=== PATIENT | male | born 1950 | race Caucasian/White ===

== ENCOUNTER 2017-03-11 19:57 | Outpatient (CLI) | payer BC ==
[~2017-03-11 19:57] MED LIST: ASP81TEC PO; BACL10TA PO; BENZ200C3 PO; BUDE6HFA; BUDE6HFA IH; CEPH500C; CLAR-19; CLCX200C PO; CLOP75TA PO; CODE118S2; DOCU-161 PO; ISM30TCR PO; LVT.05T PO; LVT.1T PO; MAGN1TAB PO; METO-272 PO; METO50TA7; MNTL10T; MONT10TA21; MORP30TA28 PO; NITR0.3T6 SL; NTR.4SL SL; OMEP-10; OMEP20CA6; PNT40TEC PO; POLY1DRO2 OP; PRAV80TA PO; PRCD5U; PRD10T; PRD10T PO; PREVASTATIN PO; RNT150T PO; ROSU20TA14 PO; SULF1TAB38 PO; TIOT18CA IH; UBID30CA13 PO; VITA400T9 PO; ZLP10T PO; calcium PO
== END 2017-03-12 05:10 | disposition home or self-care (01) ==
LOC: SLEEP 19:57
PROVIDERS: ATTEND Nurse Practitioner Family
DX: G47.33 Obstructive sleep apnea (adult) (pediatric) (principal); G47.10 Hypersomnia, unspecified
CPT/HCPCS: 95811

== ENCOUNTER → 2017-04-20 | Outpatient (CLI) | payer BC ==
[2017-04-20 15:48] LABS: BASOPHILS % (AUTO) 0 % (0-10); EOSINOPHILS # (AUTO) 0.3 10^3/uL (0.0-0.3); EOSINOPHILS % (AUTO) 4 % (0-10); LYMPHOCYTES # (AUTO) 2.8 X 10^3 (1.0-4.0); LYMPHOCYTES % (AUTO) 36 % (12-44); MEAN CORPUSCULAR HEMOGLOBIN 31 PG (25-34); MEAN CORPUSCULAR HGB CONC 35 G/DL (32-36); MEAN CORPUSCULAR VOLUME 89 FL (80-99); MEAN PLATELET VOLUME 9.6 FL (7.4-10.4); MONOCYTES # (AUTO) 0.8 X 10^3 (0.0-1.0); MONOCYTES % (AUTO) 10 % (0-12); NEUTROPHILS # (AUTO) 3.8 X 10^3 (1.8-7.8); NEUTROPHILS % (AUTO) 50 % (42-75); PLATELET COUNT 203 10^3/uL (130-400); RED BLOOD COUNT 4.64 10^6/uL (4.35-5.85); RED CELL DISTRIBUTION WIDTH 12.7 % (10.0-14.5); WHITE BLOOD COUNT 7.7 10^3/uL (4.3-11.0)
[2017-04-20 16:07] LABS: ALANINE AMINOTRANSFERASE 34 U/L (0-55); ANION GAP 5 MMOL/L (5-14); ASPARTATE AMINO TRANSFERASE 18 U/L (5-34); BILIRUBIN,TOTAL 0.5 MG/DL (0.1-1.0); BLOOD UREA NITROGEN 20 MG/DL (7-18); BUN/CREATININE RATIO 23 (0-20); CALCIUM 8.8 MG/DL (8.5-10.1); CARBON DIOXIDE 25 MMOL/L (21-32); CHLORIDE 111 MMOL/L (98-107); CHOLESTEROL 115 MG/DL (< 200); CREATININE SERUM 0.88 MG/DL (0.60-1.30); DIRECT LDL 50 MG/DL (1-129); GFR ESTIMATED > 60; GLUCOSE 92 MG/DL (70-105); POTASSIUM 3.8 MMOL/L (3.6-5.0); SODIUM 141 MMOL/L (135-145); TOTAL PROTEIN 5.7 GM/DL (6.4-8.2); TRIGLYCERIDES 73 MG/DL (<150); VLDL CHOLESTEROL 15 MG/DL (5-40)
== END ==
LOC: LAB 15:31
PROVIDERS: ATTEND Family Medicine
DX: G47.419 Narcolepsy without cataplexy (principal)
CPT/HCPCS: 36415; 80053; 80061; 85025

== ENCOUNTER 2017-07-28 05:18 | Inpatient (IN) | payer BC, MEDICARE ==
[~2017-07-28] VITALS: Ht 175.3 cm; Wt 92.2 kg
--- OUTSIDE RECORDS SUMMARY | 2017-07-28 05:23 | XMS REPORT | Clinical Summary ---
Author Author [facility] Organization [facility] Address Unknown Phone Unavailable Care Team Providers Care Engrosser Name Role Phone PCP Unavailable Source Comments Some departments are not documenting in the electronic medical record. If you do not see the information that you expected, contact Release of Information in the Health Information Management department at [phone] for further assistance in locating additional records.[facility] Allergies No Known Allergies Current Medications Prescription Sig. Disp. Refills Start End Date Status Date pravastatin (PRAVACHOL) Take 80 mg by mouth Active 80 mg PO tablet daily. Aspirin 81 mg PO Tab Take by mouth daily. Active nitroglycerin (NITROSTAT) Place 0.4 mg under tongue Active 0.4 mg SL tablet every 5 minutes as needed. morphine SR (AVINZA) 30 Take 30 mg by mouth Active mg PO capsule daily. Levothyroxine 25 mcg PO Take by mouth daily. Active Cap celecoxib (CELEBREX) 200 Take 200 mg by mouth Active mg PO capsule daily. docusate (COLACE) 100 mg Take 200 mg by mouth at Active PO capsule bedtime daily. clopidogrel (PLAVIX) 75 Take 75 mg by mouth Active mg daily. Carboxymethylcellulose-Gl Place into or around Active ycern (OPTIVE) 0.5-0.9 % eye(s) as Needed. Drop traMADol (ULTRAM) 50 mg Take 50 mg by mouth three Active tablet times daily. 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 Esophageal reflux 05/12/2011 Family History Medical History Relation Name Comments Asthma Brother Heart Attack Brother High Cholesterol Brother Stroke Brother Cancer Mother uterine Stroke Mother Relation Name Status Comments Brother Alive Brother Alive Brother Alive Daughter Alive Father Mother Alive Son Alive Social History Tobacco Use Types Packs/Day Years Used Date Never Smoker Smokeless Tobacco: Never Used Alcohol Use Drinks/Week oz/Week Comments No Sex Assigned at Date Recorded Not on file Last Filed Vital Signs Vital Sign Reading Time Taken Blood Pressure 114/64 10/01/2015 12:00 PM FINISHER DENTURE Pulse 49 10/01/2015 12:00 PM FINISHER DENTURE Temperature 36.4 C (97.6 F) 10/01/2015 10:23 AM FINISHER DENTURE Respiratory Rate 16 06/15/2012 8:48 AM CDT Oxygen Saturation 100% 10/01/2015 12:00 PM FINISHER DENTURE Inhaled Oxygen - - Concentration Weight 89.8 kg (198 lb) 10/01/2015 10:23 AM FINISHER DENTURE Height 176.5 cm (5' 9.5") 10/01/2015 10:23 AM FINISHER DENTURE Body Mass Index 28.82 10/01/2015 10:23 AM FINISHER DENTURE Plan of Treatment Health Maintenance Due Date Last Done Comments HEPATITIS C SCREENING 1950 PHYSICAL (COMPREHENSIVE) 1957 EXAM PERTUSSIS VACCINE 1961 TETANUS VACCINE 1967 COLORECTAL CANCER 2000 SCREENING SHINGLES VACCINE 2010 PREVNAR/PNEUMOVAX (#1) 2015 INFLUENZA VACCINE 08/08/2017 Results Not on filefrom Last 3 Months
[2017-07-28 06:04] LABS: BASOPHILS % (AUTO) 0 % (0-10); EOSINOPHILS # (AUTO) 0.3 10^3/uL (0.0-0.3); EOSINOPHILS % (AUTO) 3 % (0-10); LYMPHOCYTES # (AUTO) 2.1 X 10^3 (1.0-4.0); LYMPHOCYTES % (AUTO) 21 % (12-44); MEAN CORPUSCULAR HEMOGLOBIN 31 PG (25-34); MEAN CORPUSCULAR HGB CONC 35 G/DL (32-36); MEAN CORPUSCULAR VOLUME 88 FL (80-99); MEAN PLATELET VOLUME 10.4 FL (7.4-10.4); MONOCYTES # (AUTO) 0.7 X 10^3 (0.0-1.0); MONOCYTES % (AUTO) 7 % (0-12); NEUTROPHILS % (AUTO) 69 % (42-75); PLATELET COUNT 201 10^3/uL (130-400); RED BLOOD COUNT 4.93 10^6/uL (4.35-5.85); RED CELL DISTRIBUTION WIDTH 12.6 % (10.0-14.5); WHITE BLOOD COUNT 10.2 10^3/uL (4.3-11.0)
--- NOTE | 2017-07-28 06:04 | ED General ---
General Chief Complaint: General Problems/Pain Stated Complaint: HIGH BLOOD PRESSURE,NAUSEA,ABD PAIN Nursing Triage Note: PT TO ED 7 W/ C/O OLIVAS/ELEVATED B/P ONSET X3 DAYS, W/ ONSET N/V/D ET ABD PAIN ONSET TODAY. PT APPEARS VERY ANXIOUS AT THIS TIME. Nursing Sepsis Screen: No Definite Risk Source of Information: Patient (DIFFICULT HISTORIAN--TALKS NON-STOP AT LENGTH ABOUT --DIFFICULT TO KEEP ON SUBJECT) History of Present Illness Time Seen by Provider: 05:27 Initial Comments PT ARRIVES VIA POV FROM HOME MULTIPLE COMPLAINTS C/O ELEVATED BP AND HEADACHE SINCE WEDNESDAY OR BEFORE C/O ABDOMINAL PAIN AND PAIN RADIATING INTO CHEST C/O NAUSEA AND DIARRHEA THESE SYMPTOMS SINCE 0 THIS AM HAS HAD HIATAL HERNIA REPAIR/FUNDOPLICATION, SO DOES NOT VOMIT HAD A NORMAL BM YESTERDAY AM SINCE LAST PM HAS HAD 5-6 VERY SMALL LIQUID STOOLS NO SHORTNESS OF BREATH NO PALPITATIONS HAS HAD INCREASED URINATION--STATES HE HAS BEEN DRINKING ALOT OF WATER THIS WEEK BECAUSE HE "HASN'T FELT GOOD" NO PAIN ON URINATION NO FEVER/SWEATS/CHILLS HAS TAKEN ALL AM MEDICATIONS PRIOR TO ARRIVAL PCP: DR. MORALES CRUISE GUIDE: DR. BENNETT Allergies and Home Medications Allergies Coded Allergies: Suri Known Allergies (Unverified Allergy, Unknown, 12/29/05) Home Medications Aspirin 81 Mg Tabec, 81 MG PO DAILY, (Reported) Celecoxib 200 Mg Capsule, 200 MG PO DAILY PRN for PAIN, (Reported) take one tab daily as needed for pain Clopidogrel Bisulfate 75 Mg Tablet, 75 MG PO DAILY, (Reported) Docusate Sodium 100 Mg Capsule, 200 MG PO HS, (Reported) TAKES 2 (100MG) CAPSULES AT BEDTIME Isosorbide Mononitrate 30 Mg Tab, 30 MG PO DAILY, #30 Ref 5 Prescribed by: REANNA PRECIADO on 03/02/14 1245 Levothyroxine Sodium 50 Mcg Tablet, 50 MCG PO DAILY, (Reported) Morphine Sulfate 30 Mg Tablet.sa, 30 MG PO DAILY, (Reported) Nitroglycerin 0.4 Mg Tab, SL UD PRN for CHEST PAIN, (Reported) 1 TABLET EVERY 5 MINUTES X 3 DOSES NEEDED FOR CHEST PAIN Pantoprazole Sodium 40 Mg Tab, 40 MG PO DAILY@0700, #30 Ref 5 Prescribed by: REANNA PRECIADO on 03/02/14 1245 Polyvinyl Alcohol/Povidone 50 Ea Droperette, 1 DROP OP QID PRN for DRY EYES, ( Reported) NEEDED FOR DRY EYES Rosuvastatin Calcium 20 Mg Tablet, 20 MG PO HS, (Reported) Zolpidem Tartrate 10 Mg Tab, 10 MG PO HS PRN for SLEEP, (Reported) NEEDED FOR SLEEP Constitutional: no symptoms reported EENTM: no symptoms reported Respiratory: no symptoms reported Cardiovascular: see HPI, chest pain, No edema, No palpitations, No syncope Gastrointestinal: see HPI, abdominal pain, nausea, vomiting Genitourinary: no symptoms reported Musculoskeletal: no symptoms reported Skin: no symptoms reported Psychiatric/Neurological: See HPI, Anxiety, Headache, Denies Numbness, Denies Paresthesia, Denies Seizure, Denies Tingling, Denies Weakness Hematologic/Lymphatic: No Symptoms Reported Immunological/Allergic: no symptoms reported Past Gqbiowk-Notnyz-Zfwgjq Hx Patient Social History Alcohol Use: Denies Use Recreational Drug Use: No Smoking Status: Never a Smoker Recent Foreign Travel: No Contact w/Someone Who Travel: No Recent Infectious Disease Expo: No Recent Hopitalizations: Yes (2 YEARS AGO ACID REFLUX, 4 YRS AGO 3 EXTRA THYROIDS REMOVED AND JEAN PUT IN ) Physical Abuse: No Sexual Abuse: No Mistreated: No Fear: No Surgeries History of Surgeries: Yes (CARDIAC CATH--STENTS X 3; 2 ANKLE FUSIONS, SEVERAL SURGERIES ON ANKLES AND ON BOTH KNEES ; C-SPINE SURGERY; "3 EXTRA THYROIDS REMOVED"; LAP KATYA FUNDOPLICATION) Surgeries: Abdominal, Cardiac, Coronary Stent, Orthopedic, Thyroidectomy Respiratory History of Respiratory Disorde: Yes ("C-FIBER COUGH" CHRONIC COUGH--TAKES MORPHINE SEVERAL TIMES A DAY SINCE 2008, uses a CPAP at [facility]) Respiratory Disorders: Sleep Apnea Cardiovascular History of Cardiac Disorders: Yes (CARDIAC CATHS--STENTS X 3) Cardiac Disorders: Coronary Artery Disease, High Cholesterol, Hypertension Neurological History of Neurological Disord: Yes (POSSIBLE TIA, PER PT) Reproductive System Hx Reproductive Disorders: No Genitourinary History of Genitourinary Disor: No Gastrointestinal History of Gastrointestinal Di: Yes (Hyperacidity, Lap Katya) Gastrointestinal Disorders: Gastroesophageal Reflux, Hiatal Hernia Musculoskeletal History of Musculoskeletal Dis: Yes (ANKLE SURGERIES, chronic ankle pain; C- SPINE SURGERY) Endocrine History of Endocrine Disorders: Yes ("3 EXTRA THYROIDS REMOVED") Endocrine Disorders: Hyperthyroidism HEENT History of HEENT Disorders: No Cancer History of Cancer: No Psychosocial History of Psychiatric Problem: Yes (TAKES 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 ) Suicide Risk Score: 0 Integumentary History of Skin or Integumenta: No Blood Transfusions History of Blood Disorders: No Adverse Reaction to a Blood Tr: No Physical Exam Vital Signs Vital Sign - Last 12Hours 07/28/17 05:27 Temp 97.9 Pulse 99 Resp 20 B/P (MAP) 185/94 Pulse Ox 99 O2 Delivery Room Air Capillary Refill : Less Than 3 Seconds General Appearance: Anxious, Other (VERY ANXIOUS, TALKS NON-STOP --DIFFICULT TO KEEP ON SUBJECT) HEENT: PERRL/EOMI Neck: Full Range of Motion, Normal Inspection, Non Tender, Supple Respiratory: Normal Breath Sounds, No Accessory Muscle Use, No Respiratory Distress Cardiovascular: Regular Rate, Rhythm, No Edema, No Murmur, Normal Peripheral Pulses Gastrointestinal: Abnormal Bowel Sounds (TYMPANIC, HYPERACTIVE), Distended ( AND VERY FIRM), Tenderness (DIFFUSE) Back: No CVA Tenderness Extremity: Normal Capillary Refill, Normal Inspection, Normal Range of Motion, Non Tender, No Calf Tenderness, No Pedal Edema Neurologic/Psychiatric: Alert, Oriented x3, No Motor/Sensory Deficits, correctional officer chief II- XII Norm as Tested, No Abnormal Cerebellar Tests, Other (VERY ANXIOUS) Skin: Normal Color, Warm/Dry Progress/Results/Core Measures Results/Orders Lab Results Laboratory Tests Test 07/28/17 05:35 Range/Units White Blood Count 10.2 4.3-11.0 10^3/uL Red Blood Count 4.93 4.35-5.85 10^6/uL Hemoglobin 15.1 13.3-17.7 G/DL Hematocrit 43 40-54 % Mean Corpuscular Volume 88 80-99 FL Mean Corpuscular Hemoglobin 31 25-34 PG Mean Corpuscular Hemoglobin Concent 35 32-36 G/DL Red Cell Distribution Width 12.6 10.0-14.5 % Platelet Count 201 130-400 10^3/uL Mean Platelet Volume 10.4 7.4-10.4 FL Neutrophils (%) (Auto) 69 42-75 % Lymphocytes (%) (Auto) 21 12-44 % Monocytes (%) (Auto) 7 0-12 % Eosinophils (%) (Auto) 3 0-10 % Basophils (%) (Auto) 0 0-10 % Neutrophils # (Auto) 7.0 1.8-7.8 X 10^3 Lymphocytes # (Auto) 2.1 1.0-4.0 X 10^3 Monocytes # (Auto) 0.7 0.0-1.0 X 10^3 Eosinophils # (Auto) 0.3 0.0-0.3 10^3/uL Basophils # (Auto) 0.0 0.0-0.1 10^3/uL Prothrombin Time 12.2 12.2-14.7 SEC INR Comment 0.9 0.8-1.4 Activated Partial Thromboplast Time 26 24-35 SEC Sodium Level 142 135-145 MMOL/L Potassium Level 3.8 3.6-5.0 MMOL/L Chloride Level 111 H 98-107 MMOL/L Carbon Dioxide Level 20 L 21-32 MMOL/L Anion Gap 11 5-14 MMOL/L Blood Urea Nitrogen 18 7-18 MG/DL Creatinine 0.87 0.60-1.30 MG/DL Estimat Glomerular Filtration Rate > 60 BUN/Creatinine Ratio 21 Glucose Level 145 H 70-105 MG/DL Calcium Level 9.1 8.5-10.1 MG/DL Magnesium Level 2.3 1.8-2.4 MG/DL Total Bilirubin 0.4 0.1-1.0 MG/DL Aspartate Amino Transf (AST/SGOT) 17 5-34 U/L Alanine Aminotransferase (ALT/SGPT) 26 0-55 U/L Alkaline Phosphatase 85 40-136 U/L Total Creatine Kinase 220 H 30-200 U/L Creatine Kinase MB 2.7 <6.6 NG/ML Troponin I < 0.30 <0.30 NG/ML B-Type Natriuretic Peptide 14.9 <100.0 PG/ML Total Protein 6.5 6.4-8.2 GM/DL Albumin 4.2 3.2-4.5 GM/DL Amylase Level 39 25-125 U/L Lipase 46 8-78 U/L My Orders Orders - MILTON CALVO DO Saline Lock/Iv-Start (07/28/17 05:38) Ekg Tracing (07/28/17 05:38) Monitor-Rhythm Ecg Trace Only (07/28/17 05:38) Amylase (07/28/17 05:38) BNP (07/28/17 05:38) Cbc With Automated Diff (07/28/17 05:38) Comprehensive Metabolic Panel (07/28/17 05:38) Creatine Kinase (07/28/17 05:38) Creatine Kinase Mb (07/28/17 05:38) Lipase (07/28/17 05:38) Magnesium (07/28/17 05:38) Protime With Inr (07/28/17 05:38) Partial Thromboplastin Time (07/28/17 05:38) Troponin I (07/28/17 05:38) Ua Culture If Indicated (07/28/17 05:38) Acute Abd Series (07/28/17 05:38) Saline Lock/Iv-Start (07/28/17 05:38) Ct Head Wo (07/28/17 05:38) Ct Abdomen/Pelvis Wo (07/28/17 06:13) Ondansetron Injection (Zofran Injectio (07/28/17 06:30) Fentanyl Injection (Sublimaze Injection (07/28/17 06:17) Ng Tube Insert & Assessment (07/28/17 06:20) Benzocaine Extension Tube (Hurricaine Ex (07/28/17 06:34) Chest 1 View, Ap/Pa Only (07/28/17 06:47) Medications Given in ED Vital Signs/I&O Vital Sign - Last 12Hours 07/28/17 05:27 Temp 97.9 Pulse 99 Resp 20 B/P (MAP) 185/94 Pulse Ox 99 O2 Delivery Room Air Blood Pressure Mean: 124 Progress Note : Progress Note NO VOMITING DURING ER STAY BP DOWN WITHOUT TREATMENT ECG Initial ECG Impression Time: 05:35 Initial ECG Rate: 65 Initial ECG Rhythm: Normal Sinus Initial ECG Impression: Normal Initial ECG Comparisson: No Previous ECG Available Diagnostic Imaging Comments ACUTE ABDOMEN XRAYS--LIKELY DISTAL SBO, PER RADIOLOGIST REPORT @ 0623 CT HEAD--NO ACUTE PROCESS, PER [facility] VIA FAX @ 0630 CT ABDOMEN/PELVIS--DISTENSION OF SMALL BOWEL LOOPS WITHOUT TRANSITION POINT-- POSSIBLE ADYNAMIC ILEUS. PER [facility] VIA FAX @ [phone] Reviewed: Reviewed by Me Departure Communication (Admissions) Progress Notes 0620--SPOKE WITH DR. TINOCO, SURGEON HEALTH CARE LIAISON. ACCEPTS PT FOR ADMIT 0630--SPOKE WITH DR. JON, HOSPITALIST, FOR MEDICAL CONSULT. WILL HAVE CARDIOLOGY CONSULTED ON ADMIT. Impression Impression: Primary Impression: Small bowel obstruction Additional Impressions: HTN (hypertension) HX OF CAD WITH STENTS Disposition: ADMITTED INPATIENT Condition: Stable Admissions Decision to Admit Reason: Admit from ER (General) Decision to Admit/Date: Jul 28, 2017 Time/Decision to Admit Time: 06:20 Departure-Patient Inst. Referrals: JODI MORALES MD (PCP/Family) Primary Care Physician MILTON CALVO DO Jul 28, 2017 06:04
[2017-07-28] MEDS ORDERED: fentaNYL INJECTION 100 MCG/2 ML AMP IVP STA (06:17)
[2017-07-28 06:20] LABS: INR 0.9 (0.8-1.4); PROTHROMBIN TIME PATIENT 12.2 SEC (12.2-14.7)
--- NOTE | 2017-07-28 06:20 | Diagnostic Imaging Report ---
INDICATION: Hypertension, headache, abdominal distention. TECHNIQUE: Single view chest with supine and upright radiographs of the abdomen. 6:22 AM CORRELATION STUDY: 03/01/2014 FINDINGS: Frontal radiograph of the chest demonstrates no acute abnormality. Rather pronounced small bowel gas distention is present and gas in the stomach. There appears to be generalized paucity of colonic gas. Asymmetric wall thickening suggest about small bowel within the left mid abdomen. A few air-fluid levels are present. IMPRESSION: 1. Negative for acute cardiopulmonary abnormality. 2. Rather prominent gas-distended small bowel with generalized paucity of colonic gas does raise concern for potential distal small bowel obstruction. Questionable wall thickening of small bowel may reflect nonspecific enteritis as well. Followup imaging evaluation is recommended. Dictated by: Dictated on workstation # [id number]
[2017-07-28] MEDS ORDERED: ONDANSETRON 4 MG/2 ML (SDV) Z0FRAN IVP ONE (06:30)
[2017-07-28] MEDS ORDERED: HURRICAINE EXT TUBE (BENZOCAINE) ONE (06:34)
[2017-07-28 06:41] LABS: ALANINE AMINOTRANSFERASE 26 U/L (0-55); ALBUMIN 4.2 GM/DL (3.2-4.5); AMYLASE 39 U/L (25-125); ANION GAP 11 MMOL/L (5-14); ASPARTATE AMINO TRANSFERASE 17 U/L (5-34); BILIRUBIN,TOTAL 0.4 MG/DL (0.1-1.0); BLOOD UREA NITROGEN 18 MG/DL (7-18); BUN/CREATININE RATIO 21; CALCIUM 9.1 MG/DL (8.5-10.1); CARBON DIOXIDE 20 MMOL/L (21-32); CHLORIDE 111 MMOL/L (98-107); CREATINE KINASE 220 U/L (30-200); CREATININE SERUM 0.87 MG/DL (0.60-1.30); GFR ESTIMATED > 60; GLUCOSE 145 MG/DL (70-105); LIPASE 46 U/L (8-78); MAGNESIUM 2.3 MG/DL (1.8-2.4); POTASSIUM 3.8 MMOL/L (3.6-5.0); SODIUM 142 MMOL/L (135-145); TOTAL PROTEIN 6.5 GM/DL (6.4-8.2)
[2017-07-28 06:52] LABS: TROPONIN I < 0.30 NG/ML (<0.30)
--- NOTE | 2017-07-28 07:08 | Diagnostic Imaging Report ---
PROCEDURE: CT head without contrast. TECHNIQUE: Multiple contiguous axial images were obtained through the brain without the use of intravenous contrast. INDICATION: Hypertension, headache. COMPARISON: 08/02/2015 FINDINGS: There is no midline shift or mass effect. The ventricles and sulci are unremarkable. No evidence for acute intracranial hemorrhage, abnormal extra-axial fluid collections or cerebral edema is present. The basilar cisterns are unremarkable. The visualized paranasal sinuses and mastoid air cells are clear. The bony calvarium is intact. IMPRESSION: Negative appearing noncontrast CT of the head. A preliminary report was provided by [facility]. Dictated by: Dictated on workstation # [id number]
--- NOTE | 2017-07-28 07:14 | Diagnostic Imaging Report ---
INDICATION: Tube placement. TECHNIQUE: Single view chest 06:54 a.m. CORRELATION STUDY: 07/28/2017. FINDINGS: Gastric tube is in place since prior study. Tip is folded within the fundal aspect of the stomach. Remainder of the examination appearing unchanged. Heart size mildly enlarged without evidence for overt failure. Lung parenchyma stable. Note is made of rather prominent gas-distended small bowel in the upper abdomen. IMPRESSION: 1. Interval placement of gastric tube appearing to be coiled in the fundal aspect of the stomach. Dictated by: Dictated on workstation # [id number]
--- OUTSIDE RECORDS SUMMARY | 2017-07-28 07:31 | XMS REPORT | Clinical Summary ---
Author Author [facility] Organization [facility] Address Unknown Phone Unavailable Care Team Providers Care Police Guard Name Role Phone PCP Unavailable Source Comments Some departments are not documenting in the electronic medical record. If you do not see the information that you expected, contact Release of Information in the Health Information Management department at [phone] for further assistance in locating additional records.[facility] Allergies No Known Allergies Current Medications Prescription [...] Taken Blood Pressure 114/64 10/01/2015 12:00 PM SPLICING MACHINE OPERATOR Pulse 49 10/01/2015 12:00 PM SPLICING MACHINE OPERATOR Temperature 36.4 C (97.6 F) 10/01/2015 10:23 AM SPLICING MACHINE OPERATOR Respiratory Rate 16 06/15/2012 8:48 AM CDT Oxygen Saturation 100% 10/01/2015 12:00 PM SPLICING MACHINE OPERATOR Inhaled Oxygen - - Concentration Weight 89.8 kg (198 lb) 10/01/2015 10:23 AM SPLICING MACHINE OPERATOR Height 176.5 cm (5' 9.5") 10/01/2015 10:23 AM SPLICING MACHINE OPERATOR Body Mass Index 28.82 10/01/2015 10:23 AM SPLICING MACHINE OPERATOR Plan of Treatment Health Maintenance Due Date Last Done Comments HEPATITIS C SCREENING 1950 PHYSICAL (COMPREHENSIVE) 1957 EXAM PERTUSSIS VACCINE 1961 TETANUS VACCINE 1967 COLORECTAL CANCER 2000 SCREENING SHINGLES VACCINE 2010 PREVNAR/PNEUMOVAX (#1) 2015 INFLUENZA VACCINE 08/08/2017 Results Not on filefrom Last 3 Months
--- NOTE | 2017-07-28 07:45 | Diagnostic Imaging Report ---
PROCEDURE: CT abdomen and pelvis without contrast. TECHNIQUE: Multiple contiguous axial images were obtained through the abdomen and pelvis without the use of intravenous contrast. INDICATION: Abdominal distention. CORRELATION STUDY: 05/23/2010 FINDINGS: LOWER THORAX: Clear. LIVER: Likely changes of hepatic steatosis. Otherwise unremarkable on noncontrast imaging. GALLBLADDER: Present and unremarkable. No bile duct dilatation. SPLEEN: Unremarkable. PANCREAS: Atrophic, otherwise unremarkable. ADRENAL GLANDS: Unremarkable. KIDNEYS: Slightly prominent peripelvic cysts are suggested. Renal parenchyma is thin and somewhat atrophic. No findings to suggest obstructive uropathy. ABDOMINAL AORTA: Mild/moderate wall calcifications, nonaneurysmal. GASTROINTESTINAL TRACT: Moderate gaseous distention of small bowel loops is noted. No definitive transition point to suggest high degree of bowel obstruction. Colonic diverticulosis without evidence for acute diverticulitis. Appendix not well identified. No abdominal ascites or free air. URINARY BLADDER: Unremarkable. REPRODUCTIVE: Prostate gland is mildly enlarged with calcifications. OSSEOUS STRUCTURES: No acute abnormality. IMPRESSION: 1. Gaseous distention of small bowel with features favoring likely underlying ileus or bowel gas pattern. No findings to suggest high degree of bowel obstruction. Dictated by: Dictated on workstation # [id number]
[2017-07-28 07:46] VITALS: BP 143/77
[2017-07-28] MEDS ORDERED: ONDANSETRON 4 MG/2 ML (SDV) Z0FRAN IV PRN (08:30)
[2017-07-28] MEDS: PANTOPRAZOLE 40 MG/10 ML (PROTONIX) VIAL IV SCH (08:49)
[2017-07-28] MEDS: D5 1/2 NS 1000 ML IV SOLUTION 1,000 ML IV SCH ×3 (08:49→23:44)
[2017-07-28 08:51] LABS: BASOPHILS % (AUTO) 0 % (0-10); EOSINOPHILS # (AUTO) 0.1 10^3/uL (0.0-0.3); EOSINOPHILS % (AUTO) 1 % (0-10); LYMPHOCYTES # (AUTO) 1.4 X 10^3 (1.0-4.0); LYMPHOCYTES % (AUTO) 15 % (12-44); MEAN CORPUSCULAR HEMOGLOBIN 31 PG (25-34); MEAN CORPUSCULAR HGB CONC 35 G/DL (32-36); MEAN CORPUSCULAR VOLUME 89 FL (80-99); MEAN PLATELET VOLUME 9.9 FL (7.4-10.4); MONOCYTES # (AUTO) 0.4 X 10^3 (0.0-1.0); MONOCYTES % (AUTO) 4 % (0-12); NEUTROPHILS % (AUTO) 81 % (42-75); PLATELET COUNT 202 10^3/uL (130-400); RED BLOOD COUNT 4.81 10^6/uL (4.35-5.85); RED CELL DISTRIBUTION WIDTH 12.6 % (10.0-14.5); WHITE BLOOD COUNT 9.9 10^3/uL (4.3-11.0)
[2017-07-28 09:00] LABS: ALANINE AMINOTRANSFERASE 25 U/L (0-55); ANION GAP 8 MMOL/L (5-14); ASPARTATE AMINO TRANSFERASE 16 U/L (5-34); BILIRUBIN,TOTAL 0.4 MG/DL (0.1-1.0); BLOOD UREA NITROGEN 18 MG/DL (7-18); BUN/CREATININE RATIO 22; CALCIUM 8.9 MG/DL (8.5-10.1); CARBON DIOXIDE 22 MMOL/L (21-32); CHLORIDE 111 MMOL/L (98-107); CREATININE SERUM 0.82 MG/DL (0.60-1.30); GFR ESTIMATED > 60; GLUCOSE 134 MG/DL (70-105); POTASSIUM 4.1 MMOL/L (3.6-5.0); SODIUM 141 MMOL/L (135-145); TOTAL PROTEIN 6.2 GM/DL (6.4-8.2)
--- NOTE | 2017-07-28 09:13 | Consultation-Cardiology ---
HPI-Cardiology Cardiology Consultation: Date of Consultation 07/28/17 Time Seen by Provider: 08:55 Date of Admission Attending Physician Wilfred Woods DO Admitting Physician Raj William MD Consulting Physician OCTAVIO BENNETT MD, MA, FACP, FACC, [facility] HPI: Chief Complaint: High blood pressure, headache, abdominal pain 67 yo man with gen abd pain associated with diarrhea this morning, diagnosed as SBO. Has been having elevated bp and headaches since . Denies cp or palp or syncope. Has chronic excessive sleepiness for which no cause has been found; for this he has also had a consult at the [facility] ([place], [place]). He does not report shortness of breath or palp or syncope Review of Systems-Cardiology Review of Systems Constitutional: malaise, tiredness, No weight loss, No weight gain Eyes: No vision change Ears/Nose/Throat: No ear discharge, No recent hearing loss Respiratory: As described under HPI Cardiovascular: As described under HPI Gastrointestinal: As described under HPI Genitourinary: No dysuria, No hematuria, No urine frequency changes Skin: No rash, No ulcerations Psychiatric/Neurological: As described under HPI Hematologic: No bleeding abnormalities JZQ-Khfnll-Vtrqch Hx Patient Social History Alcohol Use: Denies Use Recreational Drug Use: No Smoking Status: Never a Smoker Recent Foreign Travel: No Recent Infectious Disease Expo: No Hospitalization with Isolation: Denies Past Medical History PMH As described under Assessment. Family Medical History Family Medical History: No fam h/o early SCD. Does report fam h/o early CAD (brother) Allergies and Home Medications Allergies Coded Allergies: NKANo Known Allergies (Unverified Allergy, Unknown, 12/29/05) Home Medications Aspirin 81 Mg Tabec, 81 MG PO DAILY, (Reported) Celecoxib 200 Mg Capsule, 200 MG PO DAILY PRN for PAIN, (Reported) take one tab daily as needed for pain Clopidogrel Bisulfate 75 Mg Tablet, 75 MG PO DAILY, (Reported) Docusate Sodium 100 Mg Capsule, 200 MG PO HS, (Reported) TAKES 2 (100MG) CAPSULES AT BEDTIME Isosorbide Mononitrate 30 Mg Tab, 30 MG PO DAILY, #30 Ref 5 Prescribed by: REANNA PRECIADO on 03/02/14 1245 Levothyroxine Sodium 50 Mcg Tablet, 50 MCG PO DAILY, (Reported) Morphine Sulfate 30 Mg Tablet.sa, 30 MG PO DAILY, (Reported) Nitroglycerin 0.4 Mg Tab, SL UD PRN for CHEST PAIN, (Reported) 1 TABLET EVERY 5 MINUTES X 3 DOSES NEEDED FOR CHEST PAIN Pantoprazole Sodium 40 Mg Tab, 40 MG PO DAILY@0700, #30 Ref 5 Prescribed by: REANNA PRECIADO on 03/02/14 1245 Polyvinyl Alcohol/Povidone 50 Ea [place], 1 DROP OP QID PRN for DRY EYES, ( Reported) NEEDED FOR DRY EYES Rosuvastatin Calcium 20 Mg Tablet, 20 MG PO HS, (Reported) Zolpidem Tartrate 10 Mg Tab, 10 MG PO HS PRN for SLEEP, (Reported) NEEDED FOR SLEEP Physical Exam-Cardiology Physical Exam Vital Signs/I&O Vital Sign - Last 12Hours 07/28/17 07/28/17 05:27 07:36 Temp 97.9 Pulse 99 61 Resp 20 18 B/P (MAP) 185/94 Pulse Ox 99 92 O2 Delivery Room Air Room Air Capillary Refill : Less Than 3 Seconds Constitutional: AAO x 3, well-developed, well-nourished HEENT: PERRL, EOMI, hearing is well preserved, No xanthelasmas are seen Neck: carotid pulses are 2 + bilaterally, with good upstrokes Respiratory: No accessory muscle use, lungs clear to percussion, lungs clear to auscultation Cardiovascular: regular rate-rhythm, S1 and S2, systolic murmur (faint DENIS at cardiac base) Gastrointestinal: distended, No guarding, No rebound, tenderness, audible bowel sounds Extremities: No clubbing, No cyanosis, No significant edema Neurologic/Psychiatric: grossly intact, power is 5/5 both on sides Skin: No rash on exposed areas, No ulcerations on exposed areas Data Review Labs Laboratory Tests 07/28/17 05:35: White Blood Count 10.2, Red Blood Count 4.93, Hemoglobin 15.1, Hematocrit 43, Mean Corpuscular Volume 88, Mean Corpuscular Hemoglobin 31, Mean Corpuscular Hemoglobin Concent 35, Red Cell Distribution Width 12.6, Platelet Count 201, Mean Platelet Volume 10.4, Neutrophils (%) (Auto) 69, Lymphocytes (%) (Auto) 21 , Monocytes (%) (Auto) 7, Eosinophils (%) (Auto) 3, Basophils (%) (Auto) 0, Neutrophils # (Auto) 7.0, Lymphocytes # (Auto) 2.1, Monocytes # (Auto) 0.7, Eosinophils # (Auto) 0.3, Basophils # (Auto) 0.0, Prothrombin Time 12.2, INR Comment 0.9, Activated Partial Thromboplast Time 26, Sodium Level 142, Potassium Level 3.8, Chloride Level 111H, Carbon Dioxide Level 20L, Anion Gap 11 , Blood Urea Nitrogen 18, Creatinine 0.87, Estimat Glomerular Filtration Rate > 60, BUN/Creatinine Ratio 21, Glucose Level 145H, Calcium Level 9.1, Magnesium Level 2.3, Total Bilirubin 0.4, Aspartate Amino Transf (AST/SGOT) 17, Alanine Aminotransferase (ALT/SGPT) 26, Alkaline Phosphatase 85, Total Creatine Kinase 220H, Creatine Kinase MB 2.7, Troponin I < 0.30, B-Type Natriuretic Peptide 14.9 , Total Protein 6.5, Albumin 4.2, Amylase Level 39, Lipase 46 07/28/17 08:30: White Blood Count 9.9, Red Blood Count 4.81, Hemoglobin 14.8, Hematocrit 43, Mean Corpuscular Volume 89, Mean Corpuscular Hemoglobin 31, Mean Corpuscular Hemoglobin Concent 35, Red Cell Distribution Width 12.6, Platelet Count 202, Mean Platelet Volume 9.9, Neutrophils (%) (Auto) 81H, Lymphocytes (%) (Auto) 15 , Monocytes (%) (Auto) 4, Eosinophils (%) (Auto) 1, Basophils (%) (Auto) 0, Neutrophils # (Auto) 8.0H, Lymphocytes # (Auto) 1.4, Monocytes # (Auto) 0.4, Eosinophils # (Auto) 0.1, Basophils # (Auto) 0.0, Sodium Level 141, Potassium Level 4.1, Chloride Level 111H, Carbon Dioxide Level 22, Anion Gap 8, Blood Urea Nitrogen 18, Creatinine 0.82, Estimat Glomerular Filtration Rate > 60, BUN/ Creatinine Ratio 22, Glucose Level 134H, Calcium Level 8.9, Total Bilirubin 0.4 , Aspartate Amino Transf (AST/SGOT) 16, Alanine Aminotransferase (ALT/SGPT) 25, Alkaline Phosphatase 79, Total Protein 6.2L, Albumin 4.0 Laboratory Tests 07/28/17 05:35 07/28/17 08:30 A/P-Cardiology Assessment/Admission Diagnosis SBO Hypertension Palpitations of undetermined etiology - 24 hour holter study of October 2016 showed NSR with an average HR of 65 bpm. Occ PVC. Not VT or SVT. No significant bradycardia. No symptoms currently Headaches of undetermined etiology for which he is following at the Headache clinic at [facility], much improved after having an abcessed tooth removed by Dr Lopes in February 2016 Coronary artery disease with a history of bare-metal stenting of the right coronary with Mini-Vision 2.25 x 8-mm and 2.25 x 12-mm overlapping stents in July 2010. These were post-dilated with Quantum 2.5 x 15-mm balloon. Last cardiac catheterization was on 01/17/2013. Stents were patent but the procedure was complicated by spasm in the right coronary and development of thrombus in the right coronary for which he underwent aspiration thrombectomy and balloon angioplasty with oriental orthodox of normal flow and complete resolution of thrombus. Last MPI of 09/15/16 did not show significant ischemia or infarction and LVEF was 69% Chronic symptoms of excessive sleepiness and tiredness and dizziness Echo of 09/14/16: LVEF 60%, triv to mild MR & TR, no valvular stenosis, PASP 35 mmHg Chronic persistent cough which has been diagnosed as C-fiber cough by his Yard Assistant in [place]. This is currently under control with chronic treatment with MS Contin. Chronic mild gait imbalance, currently stable. History of hypothyroidism following thyroidectomy several years ago. The patient is on potassium replacement therapy, which is being managed by Dr. William. Gastroesophageal reflux for which he has undergone laparoscopic repair. Laryngo-pharyngeal reflux, which has been followed by Dr. Knight at [facility]. Hyper-function dysphonia, which has been followed by Dr. Knight at [facility]. Hyperglycemia, mild, being followed by Dr. William Hyperlipidemia, treated with statin therapy Impaired fasting glucose Minimal bilat carotid plaque on carotid u/s of 08/23/15. PFTs of 09/16/16 shows mild COPD Discussion and Recomendations * Surgical svce managing SBO] * For bp control, we will use topical clonidine * Resume oral meds when allowed oral intake * Med svce managing headache * I spoke with him and answered questions OCTAVIO BENNETT MD FACP FAC CCDS Jul 28, 2017 09:13
[2017-07-28] MEDS ORDERED: cloNIDine 0.2 MG PATCH (CATAPRES TTS) TDSY TD ONE (09:30)
--- NOTE | 2017-07-28 09:51 | History & Physical-Hospitalist ---
HPI History of Present Illness: HPI/Chief Complaint CC: Abd pain HPI: Pt is a 67yoCM with a PMH of SBO, CAD s/p stenting, hypothyroidism, excessive daytime sleepiness, GERD, and HTN who presents to the ER with CC of abd pain. He states the pain awoke him from sleep at 1am. He was also having diarrhea. Painis mostly on the left side. He has had a SBO in the past but didn' t feel it was as bad as this. He denies any history of abd surgery, nausea, vomiting, constipation. He denies fever but has had some chills. He has also noted his BP has bene increasing over the past few days despite compliance with medications. He denies any headaches, chest pain, SOB. He has been following with [facility] regarding his excessive sleepiness. Source: patient Exam Limitations: no limitations Date Seen 07/28/17 Time Seen by Provider: 09:30 Attending Physician Wilfred Woods Floyd R MD Referring Physician Date of Admission Jul 28, 2017 at 06:20 Home Medications & Allergies Home Medications Reviewed patient Home Medication Reconciliation Form Allergies Allergies Coded Allergies NKANo Known Allergies (Unverified Allergy, Unknown, 12/29/05) Past Xlmltxk-Cucqsc-Eoswch Hx Patient Social History Marrital Status: Alcohol Use: Denies Use Recreational Drug Use: No Smoking Status: Never a Smoker Recent Foreign Travel: No Contact w/other who traveled: No Recent Hopitalizations: Yes (2 YEARS AGO ACID REFLUX, 4 YRS AGO 3 EXTRA THYROIDS REMOVED AND JEAN PUT IN ) Recent Infectious Disease Expo: No Surgeries Yes (CARDIAC CATH--STENTS X 3; 2 ANKLE FUSIONS, SEVERAL SURGERIES ON ANKLES AND ON BOTH KNEES ; C-SPINE SURGERY; "3 EXTRA THYROIDS REMOVED"; LAP VIRI FUNDOPLICATION) Cardiac, Coronary Stent, Orthopedic, Thyroidectomy Respiratory Yes ("C-FIBER COUGH" CHRONIC COUGH--TAKES MORPHINE SEVERAL TIMES A DAY SINCE 2008, uses a CPAP at [facility]) Cardiovascular Yes (CARDIAC CATHS--STENTS X 3) Coronary Artery Disease, High Cholesterol, Hypertension Neurological Yes Headaches /Migraines Reproductive System Hx Reproductive Disorders: No Genitourinary No Gastrointestinal Yes (Hyperacidity, Lap Viri) Gastroesophageal Reflux, Hiatal Hernia Musculoskeletal Yes (ANKLE SURGERIES, chronic ankle pain; C-SPINE SURGERY) Endocrine History of Endocrine Disorders: Yes ("3 EXTRA THYROIDS REMOVED") Endocrine Disorders: Hypothyroidsim HEENT History of HEENT Disorders: No Cancer No Psychosocial History of Psychiatric Problem: Yes (TAKES 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 ) Integumentary History of Skin or Integumenta: No Blood Transfusions History of Blood Disorders: No Adverse Reaction to a Blood Tr: No Physical Exam Physical Exam Vital Signs Vital Sign - Last 12Hours 07/28/17 05:27 Temp 97.9 Pulse 99 Resp 20 B/P (MAP) 185/94 Pulse Ox 99 O2 Delivery Room Air Capillary Refill : Less Than 3 Seconds Results Results/Procedures Lab Laboratory Tests 07/28/17 05:35 07/28/17 08:30 JANEY JON MD Jul 28, 2017 09:51
--- NOTE | 2017-07-28 09:58 | Consultation-Hospitalist ---
HPI History of Present Illness: HPI/Chief Complaint CC: Abd pain HPI: Pt is a 67yoCM with a PMH of SBO, CAD s/p stenting, hypothyroidism, excessive daytime sleepiness, GERD, and HTN who presents to the ER with CC of abd pain. He states the pain awoke him from sleep at 1am. He was also having diarrhea. Painis mostly on the left side. He has had a SBO in the past but didn' t feel it was as bad as this. He denies any history of abd surgery, nausea, vomiting, constipation. He denies fever but has had some chills. He has also noted his BP has bene increasing over the past few days despite compliance with medications. He denies any headaches, chest pain, SOB. He has been following with [facility] regarding his excessive sleepiness. Source: patient Exam Limitations: no limitations Date Seen 07/28/17 Attending Physician Wilfred Woods Floyd R MD Referring Physician Chuck Date of Admission Jul 28, 2017 at 06:20 Home Medications & Allergies Home Medications Reviewed patient Home Medication Reconciliation Form Allergies Allergies Coded Allergies NKANo Known Allergies (Unverified Allergy, Unknown, 12/29/05) Past Wedbdpx-Rwazyu-Wtbwry Hx Patient Social History Marrital Status: Alcohol Use: Denies Use Recreational Drug Use: No Smoking Status: Never a Smoker Recent Foreign Travel: No Contact w/other who traveled: No Recent Hopitalizations: Yes (2 YEARS AGO ACID REFLUX, 4 YRS AGO 3 EXTRA THYROIDS REMOVED AND JEAN PUT IN ) Recent Infectious Disease Expo: No Surgeries Yes (CARDIAC CATH--STENTS X 3; 2 ANKLE FUSIONS, SEVERAL SURGERIES ON ANKLES AND ON BOTH KNEES ; C-SPINE SURGERY; "3 EXTRA THYROIDS REMOVED"; LAP KATYA FUNDOPLICATION) Cardiac, Coronary Stent, Orthopedic, Thyroidectomy Respiratory Yes ("C-FIBER COUGH" CHRONIC COUGH--TAKES MORPHINE SEVERAL TIMES A DAY SINCE 2008, uses a CPAP at [facility]) Cardiovascular Yes (CARDIAC CATHS--STENTS X 3) Coronary Artery Disease, High Cholesterol, Hypertension Neurological Yes Headaches /Migraines Reproductive System Hx Reproductive Disorders: No Genitourinary No Gastrointestinal Yes (Hyperacidity, Lap Katya) Gastroesophageal Reflux, Hiatal Hernia Musculoskeletal Yes (ANKLE SURGERIES, chronic ankle pain; C-SPINE SURGERY) Endocrine History of Endocrine Disorders: Yes ("3 EXTRA THYROIDS REMOVED") Endocrine Disorders: Hyperthyroidism HEENT History of HEENT Disorders: No Cancer No Psychosocial History of Psychiatric Problem: Yes (TAKES 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 ) Integumentary History of Skin or Integumenta: No Blood Transfusions History of Blood Disorders: No Adverse Reaction to a Blood Tr: No Review of Systems Constitutional: chills, No fever EENTM: No hearing loss, No blurred vision, No double vision Respiratory: No cough, No short of breath Cardiovascular: No chest pain, No palpitations Gastrointestinal: abdominal pain, diarrhea, No nausea, No vomiting Genitourinary: No dysuria, No frequency Musculoskeletal: No back pain, No joint pain Skin: no symptoms reported Psychiatric/Neurological: No Symptoms Reported Physical Exam Physical Exam Vital Signs Vital Sign - Last 12Hours 07/28/17 05:27 Temp 97.9 Pulse 99 Resp 20 B/P (MAP) 185/94 Pulse Ox 99 O2 Delivery Room Air Capillary Refill : Less Than 3 Seconds General Appearance: No Apparent Distress, WD/WN HEENT: PERRL/EOMI, No Scleral Icterus (L), No Scleral Icterus (R) Neck: Non Tender, Supple Respiratory: Lungs Clear, Normal Breath Sounds Cardiovascular: Regular Rate, Rhythm, No Edema, No JVD, No Murmur Gastrointestinal: Abnormal Bowel Sounds, Distended, No Guarding, No Rebound, Tenderness (LLQ) Extremity: Non Tender, No Calf Tenderness, No Pedal Edema Neurologic/Psychiatric: Alert, Oriented x3, Normal Mood/Affect Skin: Normal Color, Warm/Dry Results Results/Procedures Lab Laboratory Tests 07/28/17 05:35 07/28/17 08:30 Assessment/Plan Admission Diagnosis SBO Diagnosis/Problems Diagnosis/Problems (1) Small bowel obstruction Status: Acute Assessment & Plan: Recurrent management per primary service NGT in place Morphine prn for pain (2) Hypothyroidism Status: Chronic Assessment & Plan: due to thyroidectomy Hold supplement today while NPO Hopefully resume tomorrow (3) CAD (coronary artery disease) Status: Chronic Assessment & Plan: s/p stenting x2 Cardiology consulted On statin, plavix, asa at home Qualifiers: Qualified Codes: I25.10 - Atherosclerotic heart disease of [place] coronary artery without angina pectoris (4) HTN (hypertension) Status: Chronic Assessment & Plan: Has recently been elevated Clonidine per Cardiology recs Resume home meds when tolerating PO (5) Prophylactic measure Assessment & Plan: SCDs D5 1/2NS at 125ml/hr NPO JANEY JON MD Jul 28, 2017 09:57
[2017-07-28] MEDS ORDERED: ROSU20TA28 PO (11:29)
[2017-07-28] MEDS ORDERED: NITR0.4T39 SL (11:29)
[2017-07-28] MEDS ORDERED: DOCU100C37 PO (11:29)
[2017-07-28] MEDS ORDERED: MODA200T39 PO (11:29)
[2017-07-28] MEDS ORDERED: LEVO75TA6 PO ×2 (11:29)
[2017-07-28] MEDS ORDERED: CELE-63 PO (11:29)
[2017-07-28] MEDS ORDERED: ASPI-983 PO (11:29)
[2017-07-28] MEDS ORDERED: AMLO5TAB2 PO (11:29)
[2017-07-28] MEDS ORDERED: METO-274 PO (11:29)
[2017-07-28] MEDS ORDERED: CLOP75TA28 PO (11:29)
[2017-07-28] MEDS ORDERED: MORP-34 PO (11:37)
[2017-07-28] MEDS ORDERED: METH-288 PO (11:37)
[2017-07-28] MEDS ORDERED: POLY15DR14 OU (11:37)
[2017-07-28 12:00] VITALS: BP 120/70
[2017-07-28] MEDS: morphine INJ 10 MG/ML 1ML (SYR OR VIAL) IV PRN ×3 (12:06→20:53)
[2017-07-28 12:13] LABS: BILIRUBIN,URINE NEGATIVE (NEGATIVE); KETONES,URINE NEGATIVE (NEGATIVE); LEUKOCYTE ESTERASE ,URINE NEGATIVE (NEGATIVE); NITRITE,URINE NEGATIVE (NEGATIVE); PH,URINE 5 (5-9); PROTEIN,URINE NEGATIVE (NEGATIVE); UROBILINOGEN,URINE NORMAL (NORMAL)
[2017-07-28 12:20] LABS: WBC,URINE RARE /HPF
[2017-07-28 16:00] VITALS: BP 151/75
--- NOTE | 2017-07-28 17:43 | History & Physical-Surgical ---
History of Present Illness History of Present Illness Reason for visit/HPI Chief complaint headache and abdominal distention Patient is a 67-year-old male who presents emergency department waking up with some abdominal distention and headache. Patient felt that his blood pressure is to be elevated. Patient went to the emergency department for further evaluation. Patient states that he was having abdominal distention and maybe a little bit of left lower quadrant abdominal pain. Patient was having some liquid stools. His headache was in the frontal aspect which was feeling like he was coming apart with significant discomfort. Patient had a CT of the head which was normal. A CT scan of the abdomen and pelvis demonstrating gaseous distention of the stomach and small bowel. No definitive transition point suggestive of bowel obstruction. Could be ileus versus obstruction. Patient has had previous laparoscopic Katya fundoplication. Patient had NG tube placed in the emergency department and then was admitted. Patient with medicine and cardiology consult. Patient has noted previous small bowel obstruction proximal 5 years ago Date of Admission Jul 28, 2017 at 08:20 Date Seen by Provider: Jul 28, 2017 Time Seen by Provider: 08:20 I consulted on this patient on 07/28/17 08:20 Attending Physician Chetan Woods DO Admitting Physician Raj William MD Consult Allergies and Home Medications Allergies Coded Allergies: NKANo Known Allergies (Verified Allergy, Unknown, 07/28/17) Home Medications Amlodipine Besylate 5 Mg Tablet, 5 MG PO DAILY, (Reported) Aspirin 81 Mg Tablet.dr, 81 MG PO DAILY, (Reported) Celecoxib 200 Mg Capsule, 200 MG PO DAILY, (Reported) Clopidogrel Bisulfate 75 Mg Tablet, 75 MG PO DAILY, (Reported) Docusate Sodium 100 Mg Capsule, 200 MG PO DAILY, (Reported) TAKES 2 (100MG) CAPSULES Levothyroxine Sodium 75 Mcg Tablet, 37.5 MCG PO Child, (Reported) TAKES 1/2 (75MCG) TABLET Levothyroxine Sodium 75 Mcg Tablet, 75 MCG PO [id number], (Reported) Methylphenidate HCl 10 Mg Tablet, 10 MG PO 1300, (Reported) Metoprolol Succinate 100 Mg Tab.er.24h, 100 MG PO DAILY, (Reported) Modafinil 200 Mg Tablet, 200 MG PO DAILY, (Reported) Morphine Sulfate 30 Mg Tablet.er, 30 MG PO DAILY, (Reported) Polyvinyl Alcohol/Povidone 15 Ml Drops, 1 DROP OU QID PRN for DRY EYES, ( Reported) Rosuvastatin Calcium 20 Mg Tablet, 20 MG PO HS, (Reported) Past [id number] Hx Patient Social History Alcohol Use: Denies Use Recreational Drug Use: No Smoking Status: Never a Smoker Recent Foreign Travel: No Contact w/Someone Who Travel: No Recent Infectious Disease Expo: No Recent Hopitalizations: No ( ) Physical Abuse Screen: No Sexual Abuse: No Seasonal Allergies Seasonal Allergies: No Surgeries History of Surgeries: Yes (THROID) Surgeries: Cardiac, Coronary Stent, Orthopedic, Thyroidectomy Respiratory History of Respiratory Disorde: Yes (C-FIBER COUGH) Respiratory Disorders: Sleep Apnea Cardiovascular History of Cardiac Disorders: Yes (CARDIAC CATHS--STENTS X 3) Cardiac Disorders: Coronary Artery Disease, High Cholesterol, Hypertension Neurological History of Neurological Disord: Yes Neurological Disorders: Headaches /Migraines Reproductive System Hx Reproductive Disorders: No Genitourinary History of Genitourinary Disor: No Gastrointestinal History of Gastrointestinal Di: Yes (Hyperacidity, Lap Katya) Gastrointestinal Disorders: Gastroesophageal Reflux, Hepatitis, Hiatal Hernia Musculoskeletal History of Musculoskeletal Dis: Yes (ANKLE SURGERIES, chronic ankle pain; C- SPINE SURGERY) Endocrine History of Endocrine Disorders: Yes ("3 EXTRA THYROIDS REMOVED") Endocrine Disorders: Hyperthyroidism HEENT History of HEENT Disorders: No Cancer History of Cancer: No Psychosocial History of Psychiatric Problem: Yes (TAKES 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 ) Blood Transfusions History of Blood Disorders: No Adverse Reaction to a Blood Tr: No Family Medical History Significant Family History: No Pertinent Family Hx Family Medial History: Cardiovascular disease G8 BROTHER Completed stroke G8 BROTHER Diabetes mellitus G8 BROTHER Hypercholesterolemia G8 BROTHER Myocardial infarction G8 BROTHER Neoplasm 19 MOTHER (THYROID CANCER) Constitutional: no symptoms reported EENTM: no symptoms reported Respiratory: no symptoms reported Cardiovascular: no symptoms reported Gastrointestinal: see HPI Genitourinary: no symptoms reported Musculoskeletal: no symptoms reported Skin: no symptoms reported Psychiatric/Neurological: See HPI, Headache Physical Exam Vital Signs Vital Sign - Last 12Hours 07/28/17 05:27 Temp 97.9 Pulse 99 Resp 20 B/P (MAP) 185/94 Pulse Ox 99 O2 Delivery Room Air Capillary Refill : Less Than 3 Seconds General Appearance: No Apparent Distress HEENT: PERRL/EOMI, Normal ENT Inspection Neck: Non Tender Respiratory: Chest Non Tender, No Accessory Muscle Use, No Respiratory Distress Cardiovascular: Regular Rate, Rhythm Gastrointestinal: Soft, Distended (no significant tenderness no hernias no organomegaly) Rectal: Deferred Back: Normal Inspection Extremity: Normal Inspection, Non Tender Neurologic/Psychiatric: Alert, Oriented x3, No Motor/Sensory Deficits, Normal Mood/Affect Skin: Normal Color, Warm/Dry Data Review Labs Laboratory Tests 07/28/17 05:35: White Blood Count 10.2, Red Blood Count 4.93, Hemoglobin 15.1, Hematocrit 43, Mean Corpuscular Volume 88, Mean Corpuscular Hemoglobin 31, Mean Corpuscular Hemoglobin Concent 35, Red Cell Distribution Width 12.6, Platelet Count 201, Mean Platelet Volume 10.4, Neutrophils (%) (Auto) 69, Lymphocytes (%) (Auto) 21 , Monocytes (%) (Auto) 7, Eosinophils (%) (Auto) 3, Basophils (%) (Auto) 0, Neutrophils # (Auto) 7.0, Lymphocytes # (Auto) 2.1, Monocytes # (Auto) 0.7, Eosinophils # (Auto) 0.3, Basophils # (Auto) 0.0, Prothrombin Time 12.2, INR Comment 0.9, Activated Partial Thromboplast Time 26, Sodium Level 142, Potassium Level 3.8, Chloride Level 111H, Carbon Dioxide Level 20L, Anion Gap 11 , Blood Urea Nitrogen 18, Creatinine 0.87, Estimat Glomerular Filtration Rate > 60, BUN/Creatinine Ratio 21, Glucose Level 145H, Calcium Level 9.1, Magnesium Level 2.3, Total Bilirubin 0.4, Aspartate Amino Transf (AST/SGOT) 17, Alanine Aminotransferase (ALT/SGPT) 26, Alkaline Phosphatase 85, Total Creatine Kinase 220H, Creatine Kinase MB 2.7, Troponin I < 0.30, B-Type Natriuretic Peptide 14.9 , Total Protein 6.5, Albumin 4.2, Amylase Level 39, Lipase 46 07/28/17 08:30: White Blood Count 9.9, Red Blood Count 4.81, Hemoglobin 14.8, Hematocrit 43, Mean Corpuscular Volume 89, Mean Corpuscular Hemoglobin 31, Mean Corpuscular Hemoglobin Concent 35, Red Cell Distribution Width 12.6, Platelet Count 202, Mean Platelet Volume 9.9, Neutrophils (%) (Auto) 81H, Lymphocytes (%) (Auto) 15 , Monocytes (%) (Auto) 4, Eosinophils (%) (Auto) 1, Basophils (%) (Auto) 0, Neutrophils # (Auto) 8.0H, Lymphocytes # (Auto) 1.4, Monocytes # (Auto) 0.4, Eosinophils # (Auto) 0.1, Basophils # (Auto) 0.0, Sodium Level 141, Potassium Level 4.1, Chloride Level 111H, Carbon Dioxide Level 22, Anion Gap 8, Blood Urea Nitrogen 18, Creatinine 0.82, Estimat Glomerular Filtration Rate > 60, BUN/ Creatinine Ratio 22, Glucose Level 134H, Calcium Level 8.9, Total Bilirubin 0.4 , Aspartate Amino Transf (AST/SGOT) 16, Alanine Aminotransferase (ALT/SGPT) 25, Alkaline Phosphatase 79, Total Protein 6.2L, Albumin 4.0 07/28/17 12:05: Urine Color YELLOW, Urine Clarity CLEAR, Urine pH 5, Urine Specific [place] 1.025H, Urine Protein NEGATIVE, Urine Glucose (UA) NEGATIVE, Urine Ketones NEGATIVE, Urine Nitrite NEGATIVE, Urine Bilirubin NEGATIVE, Urine Urobilinogen NORMAL, Urine Leukocyte Esterase NEGATIVE, Urine RBC (Auto) 2+H, Urine RBC NONE , Urine WBC RARE, Urine Crystals NONE, Urine Bacteria TRACE, Urine Casts NONE, Urine Mucus LARGEH, Urine Culture Indicated NO Assessment/Plan Assessment/Plan Assessment/Plan Abdominal distention, partial small bowel obstruction, headache, hypertension, coronary artery disease Patient with no specific transition point. Patient's nothing by mouth IV hydration and NG tube to low intermittent wall suction. Patient for small bowel follow-through in a.m. Patient with medicine and cardiology consultation. No surgical intervention at this time we'll continue to follow Diagnosis/Problems Diagnosis/Problems (1) Small bowel obstruction Status: Acute Assessment & Plan: Recurrent management per primary service NGT in place Morphine prn for pain (2) Hypothyroidism Status: Chronic Assessment & Plan: due to thyroidectomy Hold supplement today while NPO Hopefully resume tomorrow (3) CAD (coronary artery disease) Status: Chronic Assessment & Plan: s/p stenting x2 Cardiology consulted On statin, plavix, asa at home (4) HTN (hypertension) Status: Chronic Assessment & Plan: Has recently been elevated Clonidine per Cardiology recs Resume home meds when tolerating PO (5) Prophylactic measure Assessment & Plan: SCDs D5 1/2NS at 125ml/hr NPO Clinical Quality Measures DVT/VTE Risk/Contraindication: Risk Factor Score Per Nursin RFS Level Per Nursing on Admit: 2=Moderate Problem Qualifiers (1) CAD (coronary artery disease): Coronary Disease-Associated Artery/Lesion type: [place] artery [place] vs. transplanted heart: [place] heart Associated angina: without angina Qualified Codes: I25.10 - Atherosclerotic heart disease of [place] coronary artery without angina pectoris CHETAN WOODS DO Jul 28, 2017 17:43
[2017-07-28 20:00] VITALS: BP 153/84
[2017-07-29] VITALS: BP 139/69
[2017-07-29] MEDS: morphine INJ 10 MG/ML 1ML (SYR OR VIAL) IV PRN ×3 (01:48→11:17)
[2017-07-29 04:00] VITALS: BP 125/71
[2017-07-29 07:18] LABS: BASOPHILS % (AUTO) 0 % (0-10); EOSINOPHILS # (AUTO) 0.2 10^3/uL (0.0-0.3); EOSINOPHILS % (AUTO) 2 % (0-10); LYMPHOCYTES # (AUTO) 1.8 X 10^3 (1.0-4.0); LYMPHOCYTES % (AUTO) 14 % (12-44); MEAN CORPUSCULAR HEMOGLOBIN 31 PG (25-34); MEAN CORPUSCULAR HGB CONC 34 G/DL (32-36); MEAN CORPUSCULAR VOLUME 90 FL (80-99); MEAN PLATELET VOLUME 9.5 FL (7.4-10.4); MONOCYTES # (AUTO) 1.2 X 10^3 (0.0-1.0); MONOCYTES % (AUTO) 10 % (0-12); NEUTROPHILS # (AUTO) 8.9 X 10^3 (1.8-7.8); NEUTROPHILS % (AUTO) 74 % (42-75); PLATELET COUNT 190 10^3/uL (130-400); RED BLOOD COUNT 4.64 10^6/uL (4.35-5.85); RED CELL DISTRIBUTION WIDTH 12.6 % (10.0-14.5); WHITE BLOOD COUNT 12.1 10^3/uL (4.3-11.0)
[2017-07-29] MEDS: PANTOPRAZOLE 40 MG/10 ML (PROTONIX) VIAL IV SCH (07:32)
[2017-07-29] MEDS: D5 1/2 NS 1000 ML IV SOLUTION 1,000 ML IV SCH ×2 (07:32→15:44)
[2017-07-29 07:40] LABS: ALANINE AMINOTRANSFERASE 19 U/L (0-55); ALBUMIN 3.6 GM/DL (3.2-4.5); ANION GAP 8 MMOL/L (5-14); ASPARTATE AMINO TRANSFERASE 13 U/L (5-34); BILIRUBIN,TOTAL 0.6 MG/DL (0.1-1.0); BLOOD UREA NITROGEN 14 MG/DL (7-18); BUN/CREATININE RATIO 17; CALCIUM 8.5 MG/DL (8.5-10.1); CARBON DIOXIDE 23 MMOL/L (21-32); CHLORIDE 106 MMOL/L (98-107); CREATININE SERUM 0.82 MG/DL (0.60-1.30); GFR ESTIMATED > 60; GLUCOSE 142 MG/DL (70-105); POTASSIUM 3.9 MMOL/L (3.6-5.0); SODIUM 137 MMOL/L (135-145); TOTAL PROTEIN 5.8 GM/DL (6.4-8.2)
[2017-07-29 08:00] VITALS: BP 158/89
[2017-07-29] MEDS ORDERED: DIATRIZOATE MEGLUM/SODIUM 37% 120 ML (GASTROGRAFIN) NG ONE (08:30)
--- NOTE | 2017-07-29 11:16 | Progress Note-Hospitalist ---
Subjective HPI/CC On Admission Date Seen by Provider: Jul 29, 2017 Time Seen by Provider: 11:05 CC: Abd pain HPI: Pt is a 67yoCM with a PMH of SBO, CAD s/p stenting, hypothyroidism, excessive daytime sleepiness, GERD, and HTN who presents to the ER with CC of abd pain. He states the pain awoke him from sleep at 1am. He was also having diarrhea. Painis mostly on the left side. He has had a SBO in the past but didn' t feel it was as bad as this. He denies any history of abd surgery, nausea, vomiting, constipation. He denies fever but has had some chills. He has also noted his BP has bene increasing over the past few days despite compliance with medications. He denies any headaches, chest pain, SOB. He has been following with [facility] regarding his excessive sleepiness. Subjective/Events-last exam Complains of a headache this AM and would like to get his ordered morphine. Objective Exam Vital Signs Vital Sign - Last 12Hours 07/28/17 05:27 Temp 97.9 Pulse 99 Resp 20 B/P (MAP) 185/94 Pulse Ox 99 O2 Delivery Room Air Capillary Refill : Less Than 3 Seconds General Appearance: No Apparent Distress, WD/WN Respiratory: Lungs Clear, Normal Breath Sounds Cardiovascular: Regular Rate, Rhythm, No Edema, No Murmur Gastrointestinal: Non Tender, Soft, Abnormal Bowel Sounds (quiet), Distended, No Guarding Neurologic/Psychiatric: Alert, Oriented x3 Results/Procedures Lab Laboratory Tests 07/29/17 07:05 Assessment/Plan Assessment and Plan Assess & Plan/Chief Complaint SBO Diagnosis/Problems Diagnosis/Problems (1) Small bowel obstruction Status: Acute Assessment & Plan: Recurrent, had small bowel follow through this AM management per primary service NGT in place Morphine prn for pain (2) Hypothyroidism Status: Chronic Assessment & Plan: due to thyroidectomy Continue to hold supplement today while NPO If NGT not removed today will start IV Synthroid (3) CAD (coronary artery disease) Status: Chronic Assessment & Plan: s/p stenting x2 Cardiology consulted On statin, plavix, asa at home Qualifiers: Qualified Codes: I25.10 - Atherosclerotic heart disease of [place] coronary artery without angina pectoris (4) HTN (hypertension) Status: Chronic Assessment & Plan: Has recently been elevated Clonidine per Cardiology recs Resume home meds when tolerating PO (5) Prophylactic measure Assessment & Plan: SCDs D5 1/2NS at 125ml/hr NPO JANEY JON MD Jul 29, 2017 11:16
[2017-07-29 12:00] VITALS: BP 150/85
--- NOTE | 2017-07-29 13:08 | Diagnostic Imaging Report ---
EXAMINATION: Gastrografin small bowel follow through. INDICATION: bowel obstruction. TECHNIQUE: Adjustment Clerk image of the abdomen was performed. Subsequently, the patient was given Gastrografin orally and serial images of the abdomen were obtained. FINDINGS: Adjustment Clerk image of the abdomen demonstrates an NG tube, with no significantly dilated bowel loops. No significant abnormality. There is prompt gastric emptying into the small bowel loops. There is a transient time through the small bowel of 1.5 hours. The small bowel caliber and fold pattern and thickness are normal. The terminal ileum appears normal. There are no filling defects seen. IMPRESSION: Unremarkable small bowel follow through with no dilated bowel loops or evidence of obstruction. Dictated by: Dictated on workstation # [id number]
[2017-07-29 15:56] VITALS: BP 133/85
--- NOTE | 2017-07-29 16:19 | Progress Note ---
Subjective Date Seen by Provider: Jul 29, 2017 Time Seen by Provider: 16:14 Subjective/Events-last exam Patient doing well today. He had small bowel follow-through this morning demonstrating unremarkable exam contrast made its way into the colon. Patient had bowel movement after having study. He's feeling better. He denies any nausea vomiting fever sweats chills shortness of breath or chest pain. Objective Exam Vital Signs Date Time Temp Pulse Resp B/P (MAP) Pulse Ox O2 Delivery O2 Flow Rate FiO2 07/29/17 12:00 98.5 53 20 150/85 96 Room Air 07/29/17 08:00 98.8 59 20 158/89 94 Room Air 07/29/17 04:00 99.4 71 20 125/71 96 Room Air 07/29/17 00:00 98.3 51 18 139/69 95 Room Air 07/28/17 20:00 98.7 52 20 153/84 95 Room Air I & O 07/30/17 07:00 Intake Total 2000 ml Output Total 400 ml Balance 1600 ml Capillary Refill : Less Than 3 Seconds General Appearance: No Apparent Distress, WD/WN HEENT: PERRL/EOMI, Normal ENT Inspection Neck: Non Tender Respiratory: No Accessory Muscle Use, No Respiratory Distress Cardiovascular: Regular Rate, Rhythm Extremity: Normal Inspection, Non Tender Neurologic/Psychiatric: Alert, Oriented x3 Skin: Normal Color, Warm/Dry Results Lab Laboratory Tests 07/29/17 07:05: White Blood Count 12.1H, Red Blood Count 4.64, Hemoglobin 14.3, Hematocrit 42, Mean Corpuscular Volume 90, Mean Corpuscular Hemoglobin 31, Mean Corpuscular Hemoglobin Concent 34, Red Cell Distribution Width 12.6, Platelet Count 190, Mean Platelet Volume 9.5, Neutrophils (%) (Auto) 74, Lymphocytes (%) (Auto) 14, Monocytes (%) (Auto) 10, Eosinophils (%) (Auto) 2, Basophils (%) (Auto) 0, Neutrophils # (Auto) 8.9H, Lymphocytes # (Auto) 1.8, Monocytes # (Auto) 1.2H, Eosinophils # (Auto) 0.2, Basophils # (Auto) 0.0, Sodium Level 137, Potassium Level 3.9, Chloride Level 106, Carbon Dioxide Level 23, Anion Gap 8, Blood Urea Nitrogen 14, Creatinine 0.82, Estimat Glomerular Filtration Rate > 60, BUN/ Creatinine Ratio 17, Glucose Level 142H, Calcium Level 8.5, Total Bilirubin 0.6 , Aspartate Amino Transf (AST/SGOT) 13, Alanine Aminotransferase (ALT/SGPT) 19, Alkaline Phosphatase 73, Total Protein 5.8L, Albumin 3.6 Assessment/Plan Assessment/Plan Assessment/Plan Abdominal distention, partial small bowel obstruction, headache, hypertension, coronary artery disease Patient with no obstruction by small bowel follow-through performed this morning. We'll plan on Dc NG tube and started on clear liquids. It's the spirometer If patient tolerates liquids will advance as tolerates tomorrow and likely DC home if okay with medicine services. Diagnosis/Problems Diagnosis/Problems (1) Small bowel obstruction Status: Acute Assessment & Plan: Recurrent, had small bowel follow through this AM management per primary service NGT in place Morphine prn for pain (2) Hypothyroidism Status: Chronic Assessment & Plan: due to thyroidectomy Continue to hold supplement today while NPO If NGT not removed today will start IV Synthroid (3) CAD (coronary artery disease) Status: Chronic Assessment & Plan: s/p stenting x2 Cardiology consulted On statin, plavix, asa at home Qualifiers: Qualified Codes: I25.10 - Atherosclerotic heart disease of [place] coronary artery without angina pectoris (4) HTN (hypertension) Status: Chronic Assessment & Plan: Has recently been elevated Clonidine per Cardiology recs Resume home meds when tolerating PO (5) Prophylactic measure Assessment & Plan: SCDs D5 1/2NS at 125ml/hr NPO Clinical Quality Measures DVT/VTE Risk/Contraindication: Risk Factor Score Per Nursin RFS Level Per Nursing on Admit: 2=Moderate CHETAN TINOCO DO Jul 29, 2017 16:19
[2017-07-29 19:07] VITALS: BP 164/91
[2017-07-30] VITALS: BP 114/71
[2017-07-30] MEDS: D5 1/2 NS 1000 ML IV SOLUTION 1,000 ML IV SCH ×2 (00:10→08:05)
[2017-07-30 04:00] VITALS: BP 128/68
[2017-07-30] MEDS ORDERED: LEVOTHYROXINE 75 MCG (LEVOTHROID) TABLET PO SCH ×2 (07:45)
--- NOTE | 2017-07-30 07:47 | Progress Note-Hospitalist ---
Subjective HPI/CC On Admission Date Seen by Provider: Jul 30, 2017 Time Seen by Provider: 07:44 CC: Abd pain HPI: Pt is a 67yoCM with a PMH of SBO, CAD s/p stenting, hypothyroidism, excessive daytime sleepiness, GERD, and HTN who presents to the ER with CC of abd pain. He states the pain awoke him from sleep at 1am. He was also having diarrhea. Painis mostly on the left side. He has had a SBO in the past but didn' t feel it was as bad as this. He denies any history of abd surgery, nausea, vomiting, constipation. He denies fever but has had some chills. He has also noted his BP has bene increasing over the past few days despite compliance with medications. He denies any headaches, chest pain, SOB. He has been following with [facility] regarding his excessive sleepiness. Subjective/Events-last exam Pt reports feeling well today. He tolerated a CLD last night. Had multiple loose BMs. Feels ready to DC home. Objective Exam Vital Signs Vital Sign - Last 12Hours 07/28/17 05:27 Temp 97.9 Pulse 99 Resp 20 B/P (MAP) 185/94 Pulse Ox 99 O2 Delivery Room Air Capillary Refill : Less Than 3 Seconds General Appearance: No Apparent Distress, WD/WN Respiratory: Lungs Clear, No Respiratory Distress Cardiovascular: Regular Rate, Rhythm, No Murmur Gastrointestinal: Normal Bowel Sounds, Non Tender, Soft Neurologic/Psychiatric: Alert, Oriented x3 Assessment/Plan Assessment and Plan Assess & Plan/Chief Complaint SBO Diagnosis/Problems Diagnosis/Problems (1) Small bowel obstruction Status: Acute Assessment & Plan: Multiple BMs overnight management per primary service NGT removed yesterday Will resume home narcotic regimen (2) Hypothyroidism Status: Chronic Assessment & Plan: due to thyroidectomy Continue to hold supplement today while NPO Resume Synthroid today (3) CAD (coronary artery disease) Status: Chronic Assessment & Plan: s/p stenting x2 Cardiology consulted On statin, plavix, asa at home Qualifiers: Qualified Codes: I25.10 - Atherosclerotic heart disease of [place] coronary artery without angina pectoris (4) HTN (hypertension) Status: Chronic Assessment & Plan: Labile overnight Clonidine per Cardiology recs Resume home meds (5) Prophylactic measure Assessment & Plan: SCDs D5 1/2NS at 125ml/hr CLD Ok with DC home if okay with primary DONTRELLJANEY Baca MD Jul 30, 2017 07:47
[2017-07-30 08:00] VITALS: BP 148/70
[2017-07-30] MEDS: PANTOPRAZOLE 40 MG/10 ML (PROTONIX) VIAL IV SCH (08:05)
[2017-07-30] MEDS ORDERED: morphine ER 30 MG (MS CONTIN) TAB PO SCH (09:00)
--- NOTE | 2017-07-30 09:05 | Discharge Inst-Simple/Standard ---
Discharge Inst-Standard Patient Instructions/Follow Up Plan of Care/Instructions/FU: Dr. William within 2 weeks for follow up appointment. Dr. Tinoco on as needed basis. Activity as Tolerated: Yes Discharge Diet: Liquid Diet (then slowly advance) Other Inst to Patient Symptoms to Report: Appetite Changes, Extremity Discoloration, Numbness/Tingling, Swelling Increased , Bleeding Excessive, Eyesight Changes, Pain Increased, Urine Color Change, Constipation(Persistent), Fever over 101 degree F, Pain/Pressure in chest, Urinating Difficulty, Cough Up/Vomit Blood, Heart Beat Irreg/Pounding, Pain/ Pressure in jaw, Vaginal Bleeding Increase, Cramps in feet or legs, Lightheadedness, Pain/Pressure in shoulder, Diarrhea(Persistent), Memory Changes Suddenly, Questions/Concerns, Weight gain consecutive days, Dizziness/ Fainting, Nausea/Vomiting, Shortness of Breath, Weight gain over 2 pounds If questions or concerns contact your physician Or seek help at emergency department. Planned Outpatient Orders/Ref. Pneu Vac Indicated: Yes CHETAN TINOCO DO Jul 30, 2017 09:05
--- NOTE | 2017-07-30 09:09 | Progress Note ---
Subjective Date Seen by Provider: Jul 30, 2017 Time Seen by Provider: 09:06 Subjective/Events-last exam patient feeling better. tolerating liquids. bm today. passing flatus. no nausea or vomiting fever sweats chills shortness of breath or chest pain wanting to go home. Objective Exam Vital Signs Date Time Temp Pulse Resp B/P (MAP) Pulse Ox O2 Delivery O2 Flow Rate FiO2 07/30/17 08:00 97.1 64 20 148/70 95 Room Air 07/30/17 04:00 98.0 68 17 128/68 98 NIV CPAP 07/30/17 00:00 98.3 51 16 114/71 97 NIV CPAP 07/29/17 19:07 97.8 63 16 164/91 98 Room Air 07/29/17 15:56 97.9 75 16 133/85 94 07/29/17 12:00 98.5 53 20 150/85 96 Room Air Capillary Refill : Less Than 3 Seconds General Appearance: No Apparent Distress, WD/WN HEENT: PERRL/EOMI, Normal ENT Inspection Neck: Non Tender Respiratory: Lungs Clear, No Respiratory Distress Cardiovascular: Regular Rate, Rhythm, No Murmur Gastrointestinal: non tender, soft, no organomegaly, no pulsatile mass Extremity: Normal Inspection, Non Tender Neurologic/Psychiatric: Alert, Oriented x3, No Motor/Sensory Deficits, Normal Mood/Affect Skin: Normal Color, Warm/Dry Assessment/Plan Assessment/Plan Assessment/Plan Abdominal distention, partial small bowel obstruction, headache, hypertension, coronary artery disease Patient with no obstruction by small bowel follow-through performed. tolerating liquids will plan on dc home today, instructed to advance diet as tolerates slowly follow up outpatient with his PCP Dr. William within 2 weeks. Diagnosis/Problems Diagnosis/Problems (1) Small bowel obstruction Status: Acute Assessment & Plan: Multiple BMs overnight management per primary service NGT removed yesterday Will resume home narcotic regimen (2) Hypothyroidism Status: Chronic Assessment & Plan: due to thyroidectomy Continue to hold supplement today while NPO Resume Synthroid today (3) CAD (coronary artery disease) Status: Chronic Assessment & Plan: s/p stenting x2 Cardiology consulted On statin, plavix, asa at home Qualifiers: Qualified Codes: I25.10 - Atherosclerotic heart disease of [place] coronary artery without angina pectoris (4) HTN (hypertension) Status: Chronic Assessment & Plan: Labile overnight Clonidine per Cardiology recs Resume home meds (5) Prophylactic measure Assessment & Plan: SCDs D5 1/2NS at 125ml/hr CLD Ok with DC home if okay with primary Clinical Quality Measures DVT/VTE Risk/Contraindication: Risk Factor Score Per Nursin RFS Level Per Nursing on Admit: 2=Moderate CHETAN TINOCO DO Jul 30, 2017 09:09
[2017-07-30 10:15] VITALS: BP 148/70
[2017-08-04] MEDS ORDERED: CLONIDINE PATCH REMOVAL TP SCH (09:00)
== END 2017-07-30 09:50 | disposition home or self-care (01) | DRG 390 ==
LOC: EDUNIT# 05:18 → ER 05:20 → 4TH 06:20
PROVIDERS: ADMIT Surgery; ATTEND Surgery
DX: K56.60 Unspecified intestinal obstruction (principal); I10 Essential (primary) hypertension; I25.10 Atherosclerotic heart disease of native coronary artery without angina pectoris; E78.5 Hyperlipidemia, unspecified; K21.9 Gastro-esophageal reflux disease without esophagitis; E03.9 Hypothyroidism, unspecified; R51 Headache; G47.10 Hypersomnia, unspecified; R42 Dizziness and giddiness; R05 Cough; R49.0 Dysphonia; R73.9 Hyperglycemia, unspecified; Z95.5 Presence of coronary angioplasty implant and graft
CPT/HCPCS: 36415; 70450; 71010; 74022; 74176; 74250; 80053; 81000; 82150; 82550; 82553; 83690; 83735; 83880; 84484; 85025; 85610; 85730; 93005; 94664; 96374; 96375

== ENCOUNTER → 2018-10-06 | Outpatient (CLI) | payer BC, MEDICARE ==
[~2018-10-06] MED LIST changes: +AMLO5TAB7 PO; +ASPI-983 PO; +CELE-63 PO; +CLOP75TA28 PO; +DOCU100C37 PO; +LEVO75TA6 PO; +METH-288 PO; +METO-395 PO; +MODA200T39 PO; +MORP-34 PO; +NITR0.4T39 SL; +POLY15DR14 OU; +ROSU20TA31 PO
--- NOTE | 2018-10-06 10:45 | Diagnostic Imaging Report ---
PROCEDURE: CT abdomen and pelvis without contrast. TECHNIQUE: Multiple contiguous axial images were obtained through the abdomen and pelvis without the use of intravenous contrast. INDICATION: Left lower quadrant pain. Comparison is made with prior CT from 07/28/2017. The lung bases are clear. No discrete liver mass is detected. The gallbladder is unremarkable. The pancreas and spleen are unremarkable. No adrenal mass is detected. Kidneys contain small renal sinus cyst bilaterally, similar to prior study. There is a 4 mm calculus in the region of the left UPJ. No significant hydronephrosis is identified. The right kidney is without calculi. Aorta is calcified but non-aneurysmal. The small and large bowel loops are normal caliber. No obstruction is seen. There is diverticulosis of the sigmoid colon but no evidence of acute diverticulitis. Bladder is unremarkable. Prostate is unremarkable. The bony structures are nonacute. IMPRESSION: 1. 4 mm left UPJ calculus without significant hydronephrosis. 2. Uncomplicated sigmoid diverticulosis. 3. Bilateral renal cysts. Dictated by: Dictated on workstation # [id number]
== END ==
LOC: RAD 09:39
PROVIDERS: ATTEND Family Medicine
DX: N20.1 Calculus of ureter (principal); K57.30 Diverticulosis of large intestine without perforation or abscess without bleeding; N28.1 Cyst of kidney, acquired
CPT/HCPCS: 74176

== ENCOUNTER → 2018-10-12 | Outpatient (CLI) | payer BC ==
--- NOTE | 2018-10-12 16:23 | Diagnostic Imaging Report ---
INDICATION: History of left UPJ calculus. COMPARISON: CT dated 10/06/2018. FINDINGS: Single supine radiographic view of the abdomen was obtained. There is an extraosseous calcification projecting over the left psoas muscle just lateral to the left L3 transverse process and may correspond to ureteral calculus seen on recent CT. No other unexpected extraosseous calcifications or radiopaque foreign bodies are seen. Note is made of multiple mildly prominent air-filled loops of small bowel, greatest within the left upper abdominal quadrant. At its widest, small bowel measures approximately 4 cm in diameter. There is no large collection of free intraperitoneal air. No unexpected radiopaque foreign bodies are seen. IMPRESSION: 1. Probable left ureteral calculus as described above. 2. Multiple mildly prominent air-filled loops of small bowel. Correlation with history of ileus is recommended. Dictated by: Dictated on workstation # [id number]
== END ==
LOC: RAD 14:37
PROVIDERS: ATTEND Urology
DX: N20.1 Calculus of ureter (principal)
CPT/HCPCS: 74018

== ENCOUNTER 2018-10-18 13:43 | Outpatient (CLI) | payer BC ==
[~2018-10-18] VITALS: Ht 176.5 cm; Wt 83.6 kg
[2018-10-18] MEDS ORDERED: METH20TA34 PO (13:56)
[2018-10-18] MEDS ORDERED: LOSA25TA6 PO (13:56)
[2018-10-19] MEDS ORDERED: SULF1TAB35 PO ×2 (10:44→10:52)
[2018-10-19] MEDS ORDERED: TAMS0.4C98 PO ×2 (10:44→10:52)
[2018-10-19] MEDS ORDERED: PHEN-640 PO ×2 (10:44→10:52)
== END 2018-10-18 14:09 | disposition home or self-care (01) ==
LOC: PREOP 13:43
PROVIDERS: ATTEND Urology
DX: Z01.818 Encounter for other preprocedural examination (principal)

== ENCOUNTER 2018-10-19 06:27 | Day surgery (SDC) | payer BC ==
[~2018-10-19] VITALS: Ht 176.5 cm; Wt 84.6 kg
[~2018-10-19 06:27] MED LIST changes: +LOSA25TA6 PO; +METH20TA34 PO
[2018-10-19 06:34] VITALS: BP 137/80
[2018-10-19] MEDS ORDERED: cefTRIAXone FOR IV USE 1,000 MG in NS (IVPB) 50 ML IV ONE (06:45)
[2018-10-19] MEDS: LACTATED RINGERS 1,000 ML IV PRN ×2 (06:50→09:20)
--- NOTE | 2018-10-19 07:09 | Progress Note-Pre Operative ---
Pre-Operative Progress Note H&P Reviewed The H&P was reviewed, patient examined and no changes noted. Date Seen by Provider: Oct 19, 2018 Time Seen by Provider: 07:08 Date H&P Reviewed: Oct 19, 2018 Time H&P Reviewed: 07:08 Pre-Operative Diagnosis: LT PROXIMAL URETERAL STONE MAGGY AYERS MD Oct 19, 2018 07:09
--- NOTE | 2018-10-19 07:09 | Progress Note-Post Operative ---
Post-Operative Progess Note Surgeon (s)/Grocery Associate (s) Surgeon MAGGY AYERS MD Grocery Associate: NONE Pre-Operative Diagnosis LT PROXIMAL URETERAL STONE Post-Operative Diagnosis SAME Procedure & Operative Findings Date of Procedure 10/19/18 Procedure Performed/Findings LT URETEROSCOPY, LT URETERAL STONE MANIPULATION AND INSERTION OF STENT Anesthesia Type GENERAL Estimated Blood Loss Estimated blood loss (mL): NONE Specimens/Packing Specimens Removed NONE Packing: NONE MAGGY AYERS MD Oct 19, 2018 07:09
--- NOTE | 2018-10-19 08:07 | Diagnostic Imaging Report ---
INDICATION: Nephrolithiasis. COMPARISON: Comparison is made with the prior examination dated 10/12/2018. FINDINGS: The bowel gas pattern is nonspecific. There is no free air. There are no abnormal abdominal calcifications. IMPRESSION: Nonspecific bowel gas pattern. Dictated by: Dictated on workstation # [id number]
[2018-10-19] MEDS ORDERED: fentaNYL INJECTION 100 MCG/2 ML AMP ONE (08:31)
[2018-10-19] MEDS ORDERED: MIDAZOLAM 2 MG/2 ML (VERSED) VIAL ONE (08:32)
[2018-10-19] MEDS ORDERED: ONDANSETRON 4 MG/2 ML (SDV) Z0FRAN ONE (09:05)
[2018-10-19] MEDS ORDERED: ROCURONIUM 10 MG/ML 5 ML SYRINGE IV ONE (09:05)
[2018-10-19] MEDS ORDERED: proPOfol 200 MG/20 ML (DIPRIVAN) VIAL IV ONE (09:05)
[2018-10-19] MEDS ORDERED: SEVOFLURANE (ULTANE) 15 ML INHAL SOLN ONE ×3 (09:05→09:21)
[2018-10-19] MEDS ORDERED: LIDOCAINE PF 2% 5 ML (XYLOCAINE) VIAL ONE (09:05)
[2018-10-19] MEDS ORDERED: NEOSTIGMINE 1 MG/ML 5 ML SYRINGE ONE (09:20)
[2018-10-19] MEDS ORDERED: GLYCOPYRROLATE 0.2 MG/ML (ROBINUL) 2 ML VIAL ONE (09:20)
[2018-10-19] MEDS ORDERED: LACTATED RINGERS 1,000 ML IV ONE (09:22)
--- NOTE | 2018-10-19 09:38 | Discharge Inst-Urology ---
Discharge Inst-Urology Discharge Medications New, Converted, or Re-newed RX: RX on Chart Patient Instructions/Follow Up Plan Please make appointment to been seen in office Sunday 10/21 at 11:30am, KUB prior to it. KUB on way home today Stay off ASA and Plavix Increase oral fluids for 48 hours and then as needed. Diet and Activity as tolerated. If questions or concerns contact your physician Or seek help at emergency department. MAGGY AYERS MD Oct 19, 2018 09:38
[2018-10-19] MEDS ORDERED: MEPERIDINE (DEMEROL) INJ 50 MG/ML IVP ONE (09:45)
[2018-10-19] MEDS ORDERED: ONDANSETRON 4 MG/2 ML (SDV) Z0FRAN IVP PRN (09:45)
[2018-10-19] MEDS ORDERED: morphine INJ 10 MG/ML 1ML (SYR OR VIAL) IVP ONE (09:45)
[2018-10-19 10:30] VITALS: BP 146/70
[2018-10-19] MEDS ORDERED: PHEN-640 PO ×4 (10:44→10:52)
[2018-10-19] MEDS ORDERED: TAMS0.4C98 PO ×4 (10:44→10:52)
[2018-10-19] MEDS ORDERED: SULF1TAB35 PO ×4 (10:44→10:52)
[2018-10-19 10:58] VITALS: BP 153/89
[2018-10-19 11:30] VITALS: BP 153/80
--- NOTE | 2018-10-19 11:49 | Diagnostic Imaging Report ---
EXAMINATION: Supine abdomen at 11:55 AM. INDICATION: Postop stent placement. FINDINGS: In the interval since the exam performed earlier today at 7:41 AM, a ureteral stent has been inserted on the left. The stent seems to be in good position. The overall appearance of the abdomen has not changed significantly otherwise. IMPRESSION: There has been interval insertion of a ureteral stent on the left. The stent appears to be in good position. Dictated by: Dictated on workstation # [id number]
--- NOTE | 2018-10-19 12:03 | OPERATIVE REPORT ---
DATE OF SERVICE: 10/19/2018 PREOPERATIVE DIAGNOSIS: Left proximal ureteral stone. POSTOPERATIVE DIAGNOSIS: Left proximal ureteral stone. OPERATIONS PERFORMED: Left ureteroscopy, left ureteral stone manipulation and insertion of left stent. SURGEON: Samuel Ayers MD. ANESTHESIA: General. COMPLICATIONS: None. DESCRIPTION OF PROCEDURE: Under satisfactory general anesthesia, the patient in lithotomy position, the genitalia were prepped and draped in the usual sterile fashion. Cystoscope was introduced under vision and the anterior urethra was normal. The prostate was mildly enlarged with mild bladder neck obstruction and trabeculation. Ureteric orifices were normal in shape, size and configuration with clear efflux and sluggish on the left side. No foreign body, bladder tumors or stones were visualized. Using a foroblique lens, I dilated the left ureteral orifice intramural portion to accommodate a 6.9 Scottish semirigid ureteroscope; however, I could not go through all the ureter that was not large enough to accommodate the scope and I did not want to force the issue, so I removed the ureteroscope, reinserted the cystoscope, passed the 6-Scottish 26 cm double-J stent, bypassed the stone and guided it fluoroscopically and went all the way to the left renal pelvis. The guidewire was removed and the stent was seen draining nicely, proximally fluoroscopically and distally endoscopically. Bladder was evacuated and the cystoscope was removed. The patient tolerated the procedure and anesthesia well and was sent to recovery room in stable condition. PLAN: We will see him on Wednesday at the office to get him ready for ESWL and possible removal of stent next Wednesday. This was fully explained to the and preoperatively to the patient. Job ID: [id number] DocumentID: [id number] Dictated Date: 10/19/2018 09:41:22 Cost And Sales Record Supervisor Date: 10/19/2018 12:03:09 Dictated By: SAMUEL AYERS MD
--- OUTSIDE RECORDS SUMMARY | 2018-10-19 12:15 | XMS REPORT | Clinical Summary ---
Author Author [facility] Organization [facility] Address Unknown Phone Unavailable Care Team Providers Care Nuclear Station Operator Name Role Phone Aly William PCP Leander Knight MD Unavailable Bibi Ventura MD Unavailable Cheryl Paulino DO Unavailable Marielle Iraheta RN Unavailable Unavailable Robel Leach MD Unavailable Source Comments Some departments are not documenting in the electronic medical record. If you do not see the information that you expected, contact Release of Information in the Health Information Management department at [phone] for further assistance in locating additional records.[facility] Allergies No Known Allergies Medications End Date Status Medication Sig Dispensed Refills Start Date Active pravastatin (PRAVACHOL) Take 80 mg by 0 80 mg PO tablet mouth daily. Active Aspirin 81 mg PO Tab Take by 0 mouth daily. Active nitroglycerin (NITROSTAT) Place 0.4 mg 0 0.4 mg SL tablet under tongue every 5 minutes as needed. Active morphine SR (AVINZA) 30 Take 30 mg by 0 mg PO capsule mouth daily. Active Levothyroxine 25 mcg PO Take by 0 Cap mouth daily. Active celecoxib (CELEBREX) 200 Take 200 mg 0 mg PO capsule by mouth daily. Active docusate (COLACE) 100 mg Take 200 mg 0 PO capsule by mouth at bedtime daily. Active clopidogrel (PLAVIX) 75 Take 75 mg by 0 mg mouth daily. Active Carboxymethylcellulose-Gl Place into 0 ycern (OPTIVE) 0.5-0.9 % or around Drop eye(s) as Needed. Active traMADol (ULTRAM) 50 mg Take 50 mg by 0 tablet mouth three times daily. 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 Esophageal reflux 05/12/2011 Family History Medical History Relation Name Comments Asthma Brother Heart Attack Brother High Cholesterol Brother Stroke Brother Cancer Mother uterine Stroke Mother Blood Clots Neg Hx COPD Neg Hx Coronary Artery Disease Neg Hx Cystic Fibrosis Neg Hx DVT Neg Hx Pulmonary Embolism Neg Hx Pulmonary Fibrosis Neg Hx Pulmonary HTN Neg Hx Relation Name Status Comments Brother Alive Brother Alive Brother Alive Daughter Alive Father Mother Alive Son Alive Social History Date Tobacco Use Types Packs/Day Years Used Never Smoker Smokeless Tobacco: Never Used Alcohol Use Drinks/Week oz/Week Comments No Sex Assigned at Date Recorded Not on file Industry Job Start Date Occupation Not on file Not on file Not on file Travel End Travel History Travel Start No recent travel history available. Last Filed Vital Signs Time Taken Vital Sign Reading 10/01/2015 12:00 PM DICTATING MACHINE TRANSCRIBER Blood Pressure 114/64 10/01/2015 12:00 PM DICTATING MACHINE TRANSCRIBER Pulse 49 10/01/2015 10:23 AM DICTATING MACHINE TRANSCRIBER Temperature 36.4 C (97.6 F) 06/15/2012 8:48 AM CDT Respiratory Rate 16 10/01/2015 12:00 PM DICTATING MACHINE TRANSCRIBER Oxygen Saturation 100% - Inhaled Oxygen - Concentration 10/01/2015 10:23 AM DICTATING MACHINE TRANSCRIBER Weight 89.8 kg (198 lb) 10/01/2015 10:23 AM DICTATING MACHINE TRANSCRIBER Height 176.5 cm (5' 9.5") 10/01/2015 10:23 AM DICTATING MACHINE TRANSCRIBER Body Mass Index 28.82 Plan of Treatment Health Maintenance Due Date Last Done Comments HEPATITIS C SCREENING 1950 PHYSICAL (COMPREHENSIVE) 1957 EXAM DTAP/TDAP VACCINES (1 - 1968 Tdap) COLORECTAL CANCER 2000 SCREENING SHINGLES RECOMBINANT 2000 VACCINE (1 of 2) PNEUMONIA (PCV13/PPSV23) 2015 VACCINES (1 of 2 - PCV13) INFLUENZA VACCINE 06/08/2018 Results Not on filefrom Last 3 Months Insurance Payer Benefit Subscriber ID Type Phone Address Plan / Group BCBS ASPEN BCBS ASPEN xxxxxxxxxxxx PPO [facility] Advance Directives Patient has advance care planning documents on file. For more information, please contact: [facility] [phone]
--- OUTSIDE RECORDS SUMMARY | 2018-10-19 12:16 | XMS REPORT | Continuity of Care Document ---
Author Author [facility] Organization [facility] Address Unknown Phone Unavailable Allergies Active Description Code Type Severity Reaction Onset Reported/Identified Relationship to Patient Clinical Status Yes NKANo Known Allergies NKA Miscellaneous Allergy Unknown N/A 07/28/2017 Yes No Known Drug Allergies [id number] Drug Allergy Unknown N/A 10/18/2018 Medications There is no data. Problems Date Dx Coded Attending Type Code Diagnosis Diagnosed By 06/07/2010 Ot 041.12 06/07/2010 Ot 566 08/06/2010 Ot 244.0 08/06/2010 Ot 401.9 08/06/2010 Ot 411.1 08/06/2010 Ot 414.01 08/06/2010 Ot 518.89 08/06/2010 Ot 729.5 08/06/2010 Ot 781.2 08/06/2010 Ot V12.61 08/06/2010 Ot V58.65 08/06/2010 Ot V58.69 08/10/2010 Ot 682.2 11/18/2010 Ot 338.29 11/18/2010 Ot 414.01 11/18/2010 Ot 786.2 11/18/2010 Ot 786.59 11/18/2010 Ot V45.82 11/18/2010 Ot V58.63 11/18/2010 Ot V58.66 11/18/2010 Ot V58.69 08/22/2011 Ot 682.4 CELLULITIS OF HAND 08/22/2011 Ot 729.81 SWELLING OF LIMB 10/28/2011 Ot 041.12 METHICILLIN RESISTANT STAPHYLOCOCCUS AUR 10/28/2011 Ot 682.3 CELLULITIS OF ARM 01/18/2013 Ot 244.0 POSTSURGICAL HYPOTHYROID 01/18/2013 Ot 414.01 CORONARY ATHEROSCLEROSIS OF [place] CORON 01/18/2013 Ot 786.2 COUGH 01/18/2013 Ot 786.59 CHEST PAIN NEC 01/18/2013 Ot 790.29 OTHER ABNORMAL GLUCOSE 01/18/2013 Ot V45.82 PERCUTANEOUS TRANSLUM CORON ANGIOPLASTY 01/18/2013 Ot V58.63 LONG-TERM( CURRENT)USE OF ANTIPLATELET/AN 01/18/2013 Ot V58.66 LONG-TERM ( CURRENT) USE OF ASPIRIN 01/18/2013 Ot V58.69 OTH MED,LT, CURRENT USE 03/02/2014 JODI MORALES MD Ot 244.0 POSTSURGICAL HYPOTHYROID 03/02/2014 JODI MORALES MD R Ot 272.4 HYPERLIPIDEMIA NEC/NOS 03/02/2014 JODI MORALES MD R Ot 338.29 OTHER CHRONIC PAIN 03/02/2014 JODI MORALES MD R Ot 401.9 HYPERTENSION NOS 03/02/2014 JODI MORALES MD R Ot 414.01 CORONARY ATHEROSCLEROSIS OF [place] CORON 03/02/2014 JODI MORALES MD Ot 719.47 JOINT PAIN-ANKLE 03/02/2014 JODI MORALES MD R Ot 780.79 OTH MALAISE FATIGUE 03/02/2014 JODI MORALES MD R Ot 781.2 ABNORMALITY OF GAIT 03/02/2014 JODI MORALES MD R Ot 786.05 SHORTNESS OF BREATH 03/02/2014 JODI MORALES MD R Ot 786.2 COUGH 03/02/2014 JODI MORALES MD R Ot 786.50 CHEST PAIN NOS 03/02/2014 JODI MORALES MD R Ot V45.82 PERCUTANEOUS TRANSLUM CORON ANGIOPLASTY 12/06/2014 SABRINA KENDRICK FACC, OCTAVIO FACP CCDS Ot 244.9 12/06/2014 SABRINA KENDRICK FACC, OCTAVIO FACP CCDS Ot 272.4 12/06/2014 SABRINA KENDRICK FACC, ALI FACP CCDS Ot 278.00 12/06/2014 SABRINA KENDRICK FACC, ALI FACP CCDS Ot 401.9 12/06/2014 SABRINA KENDRICK FACJose Antonio, ALI FACP CCDS Ot 414.00 12/06/2014 SABRINA KENDRICK FACC, ALI FACP CCDS Ot 530.81 06/12/2015 TOREY DICKINSON DO Ot 244.9 07/25/2015 HENRY CALDWELL UPSET WELDING MACHINE OPERATOR Ot 272.4 07/25/2015 HENRY CALDWELL UPSET WELDING MACHINE OPERATOR Ot 414.00 08/22/2015 JODI MORALES MD R Ot 784.0 08/26/2015 FRANCES MORALES MDYD R Ot 784.0 09/09/2015 BAIMA, HENRY L UPSET WELDING MACHINE OPERATOR Ot E78.5 09/09/2015 BAIMA, HENRY L UPSET WELDING MACHINE OPERATOR Ot I10 09/09/2015 BAIMA, HENRY L UPSET WELDING MACHINE OPERATOR Ot I25.10 09/09/2015 BAIMA, HENRY L UPSET WELDING MACHINE OPERATOR Ot R07.9 09/19/2015 BAIMA, HENRY L UPSET WELDING MACHINE OPERATOR Ot E78.5 09/19/2015 BAIMA, HENRY L UPSET WELDING MACHINE OPERATOR Ot I10 09/19/2015 BAIMA, HENYR L UPSET WELDING MACHINE OPERATOR Ot I25.10 09/19/2015 BAIMA, HENRY L UPSET WELDING MACHINE OPERATOR Ot R07.9 11/20/2015 CARMEN KENDRICK, JODI R Ot G47.33 OBSTRUCTIVE SLEEP APNEA (ADULT) (PEDIATR 11/20/2015 CARMEN KENDRICK, JODI R Ot R51 HEADACHE 11/21/2015 Ot 041.12 11/21/2015 Ot 566 11/21/2015 Ot 719.47 11/21/2015 Ot V58.69 11/21/2015 Ot V58.83 11/21/2015 Ot 272.4 11/21/2015 Ot 413.9 11/21/2015 Ot 414.01 11/21/2015 Ot 786.05 11/21/2015 Ot V58.63 11/21/2015 Ot V58.65 11/21/2015 Ot V58.66 11/21/2015 Ot V58.69 11/21/2015 Ot V72.63 11/21/2015 Ot V72.81 11/21/2015 Ot V74.8 11/21/2015 Ot 786.2 11/21/2015 Ot 793.1 11/21/2015 Ot 272.4 11/21/2015 Ot 600.00 11/21/2015 Ot 786.2 11/21/2015 Ot 790.29 11/21/2015 Ot 272.4 11/21/2015 Ot 414.01 11/21/2015 Ot 785.0 11/21/2015 Ot V58.69 11/21/2015 Ot 041.12 11/21/2015 Ot 682.3 11/21/2015 Ot 244.9 11/21/2015 Ot 414.01 11/21/2015 Ot 780.79 11/21/2015 Ot 722.52 11/21/2015 Ot 724.2 11/21/2015 JOHNATHON DOMELVI F Ot 724.4 11/21/2015 BAIMA, HENRY L UPSET WELDING MACHINE OPERATOR Ot 244.9 11/21/2015 BAIMA, HENRY L UPSET WELDING MACHINE OPERATOR Ot 272.4 11/21/2015 BAIMA, HENRY L UPSET WELDING MACHINE OPERATOR Ot 401.9 11/21/2015 BAIMA, HENRY L UPSET WELDING MACHINE OPERATOR Ot 414.00 11/21/2015 BAIMA, HENRY L UPSET WELDING MACHINE OPERATOR Ot 785.1 11/21/2015 BAIMA, HENRY L UPSET WELDING MACHINE OPERATOR Ot 272.4 11/21/2015 BAIMA, HENRY L UPSET WELDING MACHINE OPERATOR Ot 414.00 11/21/2015 SABRINA KENDRICK FACC, ALI FACP CCDS Ot 244.9 11/21/2015 SABRINA KENDRICK FACC, ALI FACP CCDS Ot 272.4 11/21/2015 SABRINA KENDRICK FACC, ALI FACP CCDS Ot 278.00 11/21/2015 SABRINA KENDRICK FACC, ALI FACP CCDS Ot 401.9 11/21/2015 SABRINA KENDRICK FACC, ALI FACP CCDS Ot 414.00 11/21/2015 SABRINA KENDRICK FACC, ALI FACP CCDS Ot 530.81 11/21/2015 ALOK CUMMINGS, TOREY L Ot 244.9 11/21/2015 BAIMA, HENRY L UPSET WELDING MACHINE OPERATOR Ot 272.4 11/21/2015 BAIMA, HENRY L UPSET WELDING MACHINE OPERATOR Ot 414.00 11/21/2015 CARMEN KENDRICK, JODI R Ot 784.0 11/21/2015 CARMEN KENDRICK, JODI R Ot 784.0 11/21/2015 BAIMA, HENRY L UPSET WELDING MACHINE OPERATOR Ot E78.5 11/21/2015 BAIMA, HENRY L UPSET WELDING MACHINE OPERATOR Ot I10 11/21/2015 BAIMA, HENRY L UPSET WELDING MACHINE OPERATOR Ot I25.10 11/21/2015 BAIMA, HENRY L UPSET WELDING MACHINE OPERATOR Ot R07.9 11/21/2015 ALOK CUMMINGS, TOREY L Ot E03.9 11/27/2015 ALOK CUMMINGS, TOREY L Ot E03.9 04/02/2016 ALOK CUMMINGS, TOREY L Ot E03.9 HYPOTHYROIDISM, UNSPECIFIED 08/21/2016 Ot 272.4 HYPERLIPIDEMIA NEC/NOS 08/21/2016 Ot 600.00 HYPERTROPHY (BENIGN) OF PROSTATE W/O URI 08/21/2016 Ot 786.2 COUGH 08/21/2016 Ot 790.29 OTHER ABNORMAL GLUCOSE 08/21/2016 Ot 272.4 HYPERLIPIDEMIA NEC/NOS 08/21/2016 Ot 414.01 CORONARY ATHEROSCLEROSIS OF [place] CORON 08/21/2016 Ot 785.0 TACHYCARDIA NOS 08/21/2016 Ot V58.69 OTH MED,LT, CURRENT USE 08/21/2016 Ot 041.12 METHICILLIN RESISTANT STAPHYLOCOCCUS AUR 08/21/2016 Ot 682.3 CELLULITIS OF ARM 08/21/2016 Ot 244.9 HYPOTHYROIDISM NOS 08/21/2016 Ot 414.01 CORONARY ATHEROSCLEROSIS OF [place] CORON 08/21/2016 Ot 780.79 OTH MALAISE FATIGUE 08/21/2016 Ot 722.52 LUMB/ LUMBOSAC DISC DEGEN 08/21/2016 Ot 724.2 LUMBAGO 08/21/2016 JOHNATHON DO MELVI F Ot 724.4 LUMBOSACRAL NEURITIS NOS 08/21/2016 BAIMA, HENRY L UPSET WELDING MACHINE OPERATOR Ot 244.9 HYPOTHYROIDISM NOS 08/21/2016 BAIMA, HENRY L UPSET WELDING MACHINE OPERATOR Ot 272.4 HYPERLIPIDEMIA NEC/NOS 08/21/2016 BAIMA, HENRY L UPSET WELDING MACHINE OPERATOR Ot 401.9 HYPERTENSION NOS 08/21/2016 BAIMA, HENRY L UPSET WELDING MACHINE OPERATOR Ot 414.00 CORON ATHEROSCLER NOS TYPE VESSEL, NATIV 08/21/2016 BAIMA, HENRY L UPSET WELDING MACHINE OPERATOR Ot 785.1 PALPITATIONS 08/21/2016 BAIMA, HENRY L UPSET WELDING MACHINE OPERATOR Ot 272.4 HYPERLIPIDEMIA NEC/NOS 08/21/2016 BAIMA, HENRY L UPSET WELDING MACHINE OPERATOR Ot 414.00 CORON ATHEROSCLER NOS TYPE VESSEL, NATIV 08/21/2016 SABRINA KENDRICK FACC, ALI FACP CCDS Ot 244.9 HYPOTHYROIDISM NOS 08/21/2016 SABRINA KENDRICK FACC, ALI FACP CCDS Ot 272.4 HYPERLIPIDEMIA NEC/NOS 08/21/2016 SABRINA KENDRICK FACC, ALI FACP CCDS Ot 278.00 OBESITY, NOS 08/21/2016 SABRINA KENDRICK FACC, ALI FACP CCDS Ot 401.9 HYPERTENSION NOS 08/21/2016 SABRINA KENDRICK FACC, ALI FACP CCDS Ot 414.00 CORON ATHEROSCLER NOS TYPE VESSEL, NATIV 08/21/2016 SABRINA KENDRICK FACC, ALI FACP CCDS Ot 530.81 ESOPHAGEAL REFLUX 08/21/2016 DICKINSON DO, TOREY L Ot 244.9 HYPOTHYROIDISM NOS 08/21/2016 BAIMA HENRY L UPSET WELDING MACHINE OPERATOR Ot 272.4 HYPERLIPIDEMIA NEC/NOS 08/21/2016 BAIMA, HENRY L UPSET WELDING MACHINE OPERATOR Ot 414.00 CORON ATHEROSCLER NOS TYPE VESSEL, NATIV 08/21/2016 CARMEN KENDRICK, JODI R Ot 784.0 HEADACHE 08/21/2016 CARMEN KENDRICK, JODI R Ot 784.0 HEADACHE 08/21/2016 CAILINGEORGINA MAIHER L UPSET WELDING MACHINE OPERATOR Ot E78.5 HYPERLIPIDEMIA, UNSPECIFIED 08/21/2016 BAIMA, HENRY L UPSET WELDING MACHINE OPERATOR Ot I10 ESSENTIAL (PRIMARY) HYPERTENSION 08/21/2016 BAISERGEI, HENRY L UPSET WELDING MACHINE OPERATOR Ot I25.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[place] CORONARY 08/21/2016 CAILINGEORGINA MAIHER L UPSET WELDING MACHINE OPERATOR Ot R07.9 CHEST PAIN, UNSPECIFIED 08/21/2016 DICKINSON DO, TOREY L Ot E03.9 HYPOTHYROIDISM, UNSPECIFIED 08/21/2016 DICKINSON DO, TOREY L Ot E03.9 HYPOTHYROIDISM, UNSPECIFIED 08/21/2016 DICKINSON DO, TOREY L Ot E03.9 HYPOTHYROIDISM, UNSPECIFIED 08/27/2016 DICKINSON DO, TOREY L Ot E03.9 HYPOTHYROIDISM, UNSPECIFIED 09/03/2016 DICKINSON DO, TOREY L Ot E03.9 HYPOTHYROIDISM, UNSPECIFIED 09/15/2016 SABRINA KENDRICK FACC, OCTAVIO FACP CCDS Ot I10 ESSENTIAL (PRIMARY) HYPERTENSION 09/15/2016 SABRINA KENDRICK FACC, OCTAVIO FACP CCDS Ot I25.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[place] CORONARY 09/15/2016 SABRINA KENDRICK FACC, ALI FACP CCDS Ot I65.23 OCCLUSION AND STENOSIS OF [place]ATERAL [place] 09/15/2016 SABRINA KENDRICK FACC, OCTAVIO FACP CCDS Ot R00.2 PALPITATIONS 09/15/2016 SABRINA KENDRICK FACC, OCTAVIO FACP CCDS Ot R06.02 SHORTNESS OF BREATH 09/15/2016 SABRINA KENDRICK FACC, ALI FACP CCDS Ot I10 ESSENTIAL (PRIMARY) HYPERTENSION 09/15/2016 SABRINA KENDRICK FACC, OCTAVIO FACP CCDS Ot I25.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[place] CORONARY 09/15/2016 SABRINA MD FACC, ALI FACP CCDS Ot I65.23 OCCLUSION AND STENOSIS OF [place] 09/15/2016 SABRINA KENDRICK FACC, ALI FACP CCDS Ot R00.2 PALPITATIONS 09/15/2016 SABRINA KENDRICK FACC, ALI FACP CCDS Ot R06.02 SHORTNESS OF BREATH 09/17/2016 SABRINA KENDRICK FACC, ALI FACP CCDS Ot I10 ESSENTIAL (PRIMARY) HYPERTENSION 09/17/2016 SABRINA KENDRICK FACC, ALI FACP CCDS Ot I25.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[place] CORONARY 09/17/2016 SABRINA KENDRICK FACC, ALI FACP CCDS Ot I65.23 OCCLUSION AND STENOSIS OF [place] 09/17/2016 SABRINA KENDRICK FACC, ALI FACP CCDS Ot R00.2 PALPITATIONS 09/17/2016 SABRINA KENDRICK FACC, ALI FACP CCDS Ot R06.02 SHORTNESS OF BREATH 09/17/2016 SABRINA KENDRICK FACC, ALI FACP CCDS Ot I10 ESSENTIAL (PRIMARY) HYPERTENSION 09/17/2016 SABRINA ALBAC, ALI FACP CCDS Ot I25.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[place] CORONARY 09/17/2016 SABRINA KENDRICK FACC, ALI FACP CCDS Ot I65.23 OCCLUSION AND STENOSIS OF [place] 09/17/2016 SABRINA ALBAC, ALI FACP CCDS Ot R00.2 PALPITATIONS 09/17/2016 SABRINA KENDRICK FACC, ALI FACP CCDS Ot R06.02 SHORTNESS OF BREATH 09/17/2016 SABRINA KENDRICK FACC, ALI FACP CCDS Ot I10 ESSENTIAL (PRIMARY) HYPERTENSION 09/17/2016 SABRINA ALBAC, ALI FACP CCDS Ot I25.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[place] CORONARY 09/17/2016 SABRINA KENDRICK FACC, ALI FACP CCDS Ot I65.23 OCCLUSION AND STENOSIS OF [place] 09/17/2016 SABRINA KENDRICK FACC, ALI FACP CCDS Ot R00.2 PALPITATIONS 09/17/2016 SABRINA KENDRICK FACC, ALI FACP CCDS Ot R06.02 SHORTNESS OF BREATH 10/05/2016 SABRINA KENDRICK FACC, ALI FACP CCDS Ot I10 ESSENTIAL (PRIMARY) HYPERTENSION 10/05/2016 SABRINA KENDRICK FACC, ALI FACP CCDS Ot I25.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[place] CORONARY 10/05/2016 SABRINA KENDRICK FACC, ALI FACP CCDS Ot I65.23 OCCLUSION AND STENOSIS OF [place] 10/05/2016 SABRINA KENDRICK FACC, ALI FACP CCDS Ot R00.2 PALPITATIONS 10/05/2016 SABRINA KENDRICK FACC, ALI FACP CCDS Ot R06.02 SHORTNESS OF BREATH 10/05/2016 SABRINA KENDRICK FACC, ALI FACP CCDS Ot I10 ESSENTIAL (PRIMARY) HYPERTENSION 10/05/2016 SABRINA KENDRICK FACC, ALI FACP CCDS Ot I25.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[place] CORONARY 10/05/2016 SABRINA KENDRICK FACC, ALI FACP CCDS Ot I65.23 OCCLUSION AND STENOSIS OF [place] 10/05/2016 SABRINA KENDRICK FACC, ALI FACP CCDS Ot R00.2 PALPITATIONS 10/05/2016 SABRINA KENDRICK FACC, ALI FACP CCDS Ot R06.02 SHORTNESS OF BREATH 10/05/2016 SABRINA ALBAC, ALI FACP CCDS Ot I10 ESSENTIAL (PRIMARY) HYPERTENSION 10/05/2016 SABRINA ALBAC, ALI FACP CCDS Ot I25.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[place] CORONARY 10/05/2016 SABRINA KENDRICK FACC, ALI FACP CCDS Ot I65.23 OCCLUSION AND STENOSIS OF [place] 10/05/2016 SABRINA ALBAC, ALI FACP CCDS Ot R00.2 PALPITATIONS 10/05/2016 SABRINA ALBAC, ALI FACP CCDS Ot R06.02 SHORTNESS OF BREATH 10/12/2016 SABRINA ALBAC, ALI FACP CCDS Ot I10 ESSENTIAL (PRIMARY) HYPERTENSION 10/12/2016 SABRINA ALBAC, ALI FACP CCDS Ot I25.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[place] CORONARY 10/12/2016 SABRINA KENDRICK FACC, ALI FACP CCDS Ot I65.23 OCCLUSION AND STENOSIS OF [place] 10/12/2016 SABRINA ALBAC, ALI FACP CCDS Ot R00.2 PALPITATIONS 10/12/2016 SABRINA KENDRICK FACC, ALI FACP CCDS Ot R06.02 SHORTNESS OF BREATH 10/21/2016 SABRINA KENDRICK FACC, ALI FACP CCDS Ot I10 ESSENTIAL (PRIMARY) HYPERTENSION 10/21/2016 SABRINA ALBAC, ALI FACP CCDS Ot I25.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[place] CORONARY 10/21/2016 SABRINA KENDRICK FACC, ALI FACP CCDS Ot I65.23 OCCLUSION AND STENOSIS OF [place] 10/21/2016 SABRINA MD FACC, ALI FACP CCDS Ot R00.2 PALPITATIONS 10/21/2016 SABRINA KENDRICK FACC, ALI FACP CCDS Ot R06.02 SHORTNESS OF BREATH 11/04/2016 SABRINA MD FACC, ALI FACP CCDS Ot E78.4 OTHER HYPERLIPIDEMIA 11/04/2016 SABRINA MD FACC, ALI FACP CCDS Ot I10 ESSENTIAL (PRIMARY) HYPERTENSION 11/04/2016 SABRINA MD FACC, ALI FACP CCDS Ot I25.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[place] CORONARY 11/04/2016 SABRINA KENDRICK FACC, ALI FACP CCDS Ot I65.23 OCCLUSION AND STENOSIS OF [place] 11/04/2016 SABRINA KENDRICK FACC, ALI FACP CCDS Ot R00.2 PALPITATIONS 11/04/2016 SABRINA KENDRICK FACC, ALI FACP CCDS Ot R06.02 SHORTNESS OF BREATH 03/12/2017 JDIAN GONZALEZ J SAMPLE SHOE INSPECTOR AND REWORKER Ot G47.10 HYPERSOMNIA, UNSPECIFIED 03/12/2017 JD, IAN J SAMPLE SHOE INSPECTOR AND REWORKER Ot G47.33 OBSTRUCTIVE SLEEP APNEA (ADULT) (PEDIATR 05/06/2017 CARMEN KENDRICK, JODI R Ot G47.419 NARCOLEPSY WITHOUT CATAPLEXY 07/28/2017 Ot 722.52 LUMB/ LUMBOSAC DISC DEGEN 07/28/2017 Ot 724.2 LUMBAGO 07/28/2017 MELVI DIEGO DO Ot 724.4 LUMBOSACRAL NEURITIS NOS 07/28/2017 BAISERGEI, HENRY L UPSET WELDING MACHINE OPERATOR Ot 244.9 HYPOTHYROIDISM NOS 07/28/2017 BAIMA, HENRY L UPSET WELDING MACHINE OPERATOR Ot 272.4 HYPERLIPIDEMIA NEC/NOS 07/28/2017 BAIMA, HENRY L UPSET WELDING MACHINE OPERATOR Ot 401.9 HYPERTENSION NOS 07/28/2017 BAIMA, HENRY L UPSET WELDING MACHINE OPERATOR Ot 414.00 CORON ATHEROSCLER NOS TYPE VESSEL, NATIV 07/28/2017 BAIMA, HENRY L UPSET WELDING MACHINE OPERATOR Ot 785.1 PALPITATIONS 07/28/2017 BAIMA, HENRY L UPSET WELDING MACHINE OPERATOR Ot 272.4 HYPERLIPIDEMIA NEC/NOS 07/28/2017 BAIMA, HENRY L UPSET WELDING MACHINE OPERATOR Ot 414.00 CORON ATHEROSCLER NOS TYPE VESSEL, NATIV 07/28/2017 SABRINA KENDRICK FACC, ALI FACP CCDS Ot 244.9 HYPOTHYROIDISM NOS 07/28/2017 SABRINA KENDRICK FACC, ALI FACP CCDS Ot 272.4 HYPERLIPIDEMIA NEC/NOS 07/28/2017 SABRINA KENDRICK FACC, ALI FACP CCDS Ot 278.00 OBESITY, NOS 07/28/2017 SABRINA KENDRICK FACC, ALI FACP CCDS Ot 401.9 HYPERTENSION NOS 07/28/2017 SABRINA KENDRICK FACC, ALI FACP CCDS Ot 414.00 CORON ATHEROSCLER NOS TYPE VESSEL, NATIV 07/28/2017 SABRINA KENDRICK FACC, ALI FACP CCDS Ot 530.81 ESOPHAGEAL REFLUX 07/28/2017 DICKINSON DO, TOREY L Ot 244.9 HYPOTHYROIDISM NOS 07/28/2017 BAIMA, HENRY L UPSET WELDING MACHINE OPERATOR Ot 272.4 HYPERLIPIDEMIA NEC/NOS 07/28/2017 BAIMA, HENRY L UPSET WELDING MACHINE OPERATOR Ot 414.00 CORON ATHEROSCLER NOS TYPE VESSEL, NATIV 07/28/2017 CARMEN KENDRICK, JODI R Ot 784.0 HEADACHE 07/28/2017 CARMEN KENDRICK, JODI R Ot 784.0 HEADACHE 07/28/2017 BAIMA, HENRY L UPSET WELDING MACHINE OPERATOR Ot E78.5 HYPERLIPIDEMIA, UNSPECIFIED 07/28/2017 BAIMA, HENRY L UPSET WELDING MACHINE OPERATOR Ot I10 ESSENTIAL (PRIMARY) HYPERTENSION 07/28/2017 BAIMA, HENRY L UPSET WELDING MACHINE OPERATOR Ot I25.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[place] CORONARY 07/28/2017 BAISERGEI, HENRY L UPSET WELDING MACHINE OPERATOR Ot R07.9 CHEST PAIN, UNSPECIFIED 07/28/2017 DICKINSON DO, TOREY L Ot E03.9 HYPOTHYROIDISM, UNSPECIFIED 07/28/2017 DICKINSON DO, TOREY L Ot E03.9 HYPOTHYROIDISM, UNSPECIFIED 07/28/2017 DICKINSON DO, TOREY L Ot E03.9 HYPOTHYROIDISM, UNSPECIFIED 07/28/2017 DICKINSON DO, TOREY L Ot E03.9 HYPOTHYROIDISM, UNSPECIFIED 07/28/2017 SABRINA KENDRICK FACC, ALI FACP CCDS Ot I10 ESSENTIAL (PRIMARY) HYPERTENSION 07/28/2017 SABRINA KENDRICK FACC, ALI FACP CCDS Ot I25.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[place] CORONARY 07/28/2017 SABRINA KENDRICK FACC, ALI FACP CCDS Ot I65.23 OCCLUSION AND STENOSIS OF [place] 07/28/2017 SABRINA KENDRICK FACC, ALI FACP CCDS Ot R00.2 PALPITATIONS 07/28/2017 SABRINA KENDRICK FACC, ALI FACP CCDS Ot R06.02 SHORTNESS OF BREATH 07/28/2017 SABRINA KENDRICK FACC, ALI FACP CCDS Ot I10 ESSENTIAL (PRIMARY) HYPERTENSION 07/28/2017 SABRINA KENDRICK FACC, ALI FACP CCDS Ot I25.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[place] CORONARY 07/28/2017 SABRINA KENDRICK FACC, ALI FACP CCDS Ot I65.23 OCCLUSION AND STENOSIS OF [place] 07/28/2017 SABRINA KENDRICK [facility], ALI FACP CCDS Ot R00.2 PALPITATIONS 07/28/2017 SABRINA KENDRICK [facility], ALI FACP CCDS Ot R06.02 SHORTNESS OF BREATH 07/28/2017 SABRINA KENDRICK [facility], ALI FACP CCDS Ot I10 ESSENTIAL (PRIMARY) HYPERTENSION 07/28/[address] [facility], ALI FACP CCDS Ot I25.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[place] CORONARY 07/28/[address] [facility], ALI FACP CCDS Ot I65.23 OCCLUSION AND STENOSIS OF [place] 07/28/[address] [facility], ALI FACP CCDS Ot R00.2 PALPITATIONS 07/28/[address] [facility], ALI FACP CCDS Ot R06.02 SHORTNESS OF BREATH 07/28/[address] [facility], ALI FACP CCDS Ot I10 ESSENTIAL (PRIMARY) HYPERTENSION 07/28/[address] [facility], ALI FACP CCDS Ot I25.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[place] CORONARY 07/28/[address] [facility], ALI FACP CCDS Ot I65.23 OCCLUSION AND STENOSIS OF [place] 07/28/[address] [facility], ALI FACP CCDS Ot R00.2 PALPITATIONS 07/28/[address] [facility], ALI FACP CCDS Ot R06.02 SHORTNESS OF BREATH 07/28/2017 SABRINA KENDRICK FACC, ALI FACP CCDS Ot E78.4 OTHER HYPERLIPIDEMIA 07/28/2017 SABRINA KENDRICK [facility], ALI FACP CCDS Ot I10 ESSENTIAL (PRIMARY) HYPERTENSION 07/28/2017 SABRINA KENDRICK FACC, [facility]I [facility] CCDS Ot I25.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[place] CORONARY 07/28/2017 SABRINA KENDRICK FACC, ALI [facility] CCDS Ot I65.23 OCCLUSION AND STENOSIS OF [place] 07/28/2017 SABRINA KENDRICK FACC, ALI [facility] CCDS Ot R00.2 PALPITATIONS 07/28/2017 SABRINA KENDRICK FACC, ALI [facility] Ot R06.02 SHORTNESS OF BREATH 07/28/2017 CARMEN KENDRICK, JODI R Ot G47.419 NARCOLEPSY WITHOUT CATAPLEXY 07/30/2017 CHETAN TINOCO DO D Ot E03.9 HYPOTHYROIDISM, UNSPECIFIED 07/30/2017 CHETAN TINOCO DO Ot E78.5 HYPERLIPIDEMIA, UNSPECIFIED 07/30/2017 CHETAN TINOCO DO Ot G47.10 HYPERSOMNIA, UNSPECIFIED 07/30/2017 CHETAN TINOCO DO D Ot I10 ESSENTIAL (PRIMARY) HYPERTENSION 07/30/2017 CHETAN TINOCO DO Ot I25.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[place] CORONARY 07/30/2017 CHETAN TINOCO DO Ot K21.9 GASTRO-ESOPHAGEAL REFLUX DISEASE WITHOUT 07/30/2017 CHETAN TINOCO DO Ot K44.9 DIAPHRAGMATIC HERNIA WITHOUT OBSTRUCTION 07/30/2017 CHETAN TINOCO DO Ot K56.60 UNSPECIFIED INTESTINAL OBSTRUCTION 07/30/2017 CHETAN TINOCO DO Ot R05 COUGH 07/30/2017 CHETAN TINOCO DO Ot R42 DIZZINESS AND GIDDINESS 07/30/2017 CHETAN TINOCO DO Ot R49.0 DYSPHONIA 07/30/2017 CHETAN TINOCO DO Ot R51 HEADACHE 07/30/2017 CHETAN TINOCO DO D Ot R73.9 HYPERGLYCEMIA, UNSPECIFIED 07/30/2017 CHETAN TINOCO DO Ot Z95.5 PRESENCE OF CORONARY ANGIOPLASTY IMPLANT 10/05/2018 MELVI DIEGO DO Ot 724.4 LUMBOSACRAL NEURITIS NOS 10/05/2018 BAIHENRY MAI UPSET WELDING MACHINE OPERATOR Ot 244.9 HYPOTHYROIDISM NOS 10/05/2018 BAIHENRY MAI L UPSET WELDING MACHINE OPERATOR Ot 272.4 HYPERLIPIDEMIA NEC/NOS 10/05/2018 BAIHENRY MAI L UPSET WELDING MACHINE OPERATOR Ot 401.9 HYPERTENSION NOS 10/05/2018 BAIMA, HENRY L UPSET WELDING MACHINE OPERATOR Ot 414.00 CORON ATHEROSCLER NOS TYPE VESSEL, NATIV 10/05/2018 BAISERGEI, HENRY L UPSET WELDING MACHINE OPERATOR Ot 785.1 PALPITATIONS 10/05/2018 BAIMA, HENRY L UPSET WELDING MACHINE OPERATOR Ot 272.4 HYPERLIPIDEMIA NEC/NOS 10/05/2018 BAIMA, HENRY L UPSET WELDING MACHINE OPERATOR Ot 414.00 CORON ATHEROSCLER NOS TYPE VESSEL, NATIV 10/05/2018 SABRINA KENDRICK FACC, ALI FACP CCDS Ot 244.9 HYPOTHYROIDISM NOS 10/05/2018 SABRINA KENDRICK FACC, ALI FACP CCDS Ot 272.4 HYPERLIPIDEMIA NEC/NOS 10/05/2018 SABRINA KENDRICK FACC, ALI FACP CCDS Ot 278.00 OBESITY, NOS 10/05/2018 SABRINA KENDRICK FACC, ALI FACP CCDS Ot 401.9 HYPERTENSION NOS 10/05/2018 SABRINA KENDRICK FACC, ALI FACP CCDS Ot 414.00 CORON ATHEROSCLER NOS TYPE VESSEL, NATIV 10/05/2018 SABRINA KENDRICK FACC, ALI FACP CCDS Ot 530.81 ESOPHAGEAL REFLUX 10/05/2018 DICKINSON DO, TOREY L Ot 244.9 HYPOTHYROIDISM NOS 10/05/2018 BAIMA, HENRY L UPSET WELDING MACHINE OPERATOR Ot 272.4 HYPERLIPIDEMIA NEC/NOS 10/05/2018 BAIMA, HENRY L UPSET WELDING MACHINE OPERATOR Ot 414.00 CORON ATHEROSCLER NOS TYPE VESSEL, NATIV 10/05/2018 CARMEN KENDRICK, JODI R Ot 784.0 HEADACHE 10/05/2018 CARMEN KENDRICK, JODI R Ot 784.0 HEADACHE 10/05/2018 CAILINSERGEI HENRY L UPSET WELDING MACHINE OPERATOR Ot E78.5 HYPERLIPIDEMIA, UNSPECIFIED 10/05/2018 CAILINMA, HENRY L UPSET WELDING MACHINE OPERATOR Ot I10 ESSENTIAL (PRIMARY) HYPERTENSION 10/05/2018 BAIMA, HENRY L UPSET WELDING MACHINE OPERATOR Ot I25.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[place] CORONARY 10/05/2018 JAVI HENRY L UPSET WELDING MACHINE OPERATOR Ot R07.9 CHEST PAIN, UNSPECIFIED 10/05/2018 DICKINSON DO, TOREY L Ot E03.9 HYPOTHYROIDISM, UNSPECIFIED 10/05/2018 DICKINSON DO, TOREY L Ot E03.9 HYPOTHYROIDISM, UNSPECIFIED 10/05/2018 DICKINSON DO, TOREY L Ot E03.9 HYPOTHYROIDISM, UNSPECIFIED 10/05/2018 TOREY DICKINSON DO Ot E03.9 HYPOTHYROIDISM, UNSPECIFIED 10/05/2018 SABRINA KENDRICK FACC, ALI FACP CCDS Ot I10 ESSENTIAL (PRIMARY) HYPERTENSION 10/05/2018 SABRINA KENDRICK FACC, ALI FACP CCDS Ot I25.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[place] CORONARY 10/05/2018 SABRINA KENDRICK FACC, ALI FACP CCDS Ot I65.23 OCCLUSION AND STENOSIS OF [place] 10/05/2018 SABRINA KENDRICK FACC, ALI FACP CCDS Ot R00.2 PALPITATIONS 10/05/2018 SABRINA KENDRICK FACC, ALI FACP CCDS Ot R06.02 SHORTNESS OF BREATH 10/05/2018 SABRINA KENDRICK FACC, ALI FACP CCDS Ot I10 ESSENTIAL (PRIMARY) HYPERTENSION 10/05/2018 SABRINA KENDRICK FACC, ALI FACP CCDS Ot I25.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[place] CORONARY 10/05/2018 SABRINA KENDRICK FACC, ALI FACP CCDS Ot I65.23 OCCLUSION AND STENOSIS OF [place] 10/05/2018 SABRINA KENDRICK FACC, ALI FACP CCDS Ot R00.2 PALPITATIONS 10/05/2018 SABRINA KENDRICK FACC, ALI FACP CCDS Ot R06.02 SHORTNESS OF BREATH 10/05/2018 SABRINA KENDRICK FACC, ALI FACP CCDS Ot I10 ESSENTIAL (PRIMARY) HYPERTENSION 10/05/2018 SABRINA KENDRICK FACC, ALI FACP CCDS Ot I25.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[place] CORONARY 10/05/2018 SABRINA KENDRICK FACC, ALI FACP CCDS Ot I65.23 OCCLUSION AND STENOSIS OF [place] 10/05/2018 SABRINA KENDRICK FACC, ALI FACP CCDS Ot R00.2 PALPITATIONS 10/05/2018 SABRINA KENDRICK FACC, ALI FACP CCDS Ot R06.02 SHORTNESS OF BREATH 10/05/2018 SABRINA KENDRICK FACC, ALI FACP CCDS Ot I10 ESSENTIAL (PRIMARY) HYPERTENSION 10/05/2018 SABRINA KENDRICK FACC, ALI FACP CCDS Ot I25.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[place] CORONARY 10/05/2018 SABRINA KENDRICK FACC, ALI FACP CCDS Ot I65.23 OCCLUSION AND STENOSIS OF [place] 10/05/2018 SABRINA KENDRICK FACC, ALI FACP CCDS Ot R00.2 PALPITATIONS 10/05/2018 SABRINA KENDRICK FACC, ALI FACP CCDS Ot R06.02 SHORTNESS OF BREATH 10/05/2018 SABRINA KENDRICK FACC, ALI FACP CCDS Ot E78.4 OTHER HYPERLIPIDEMIA 10/05/2018 SABRINA KENDRICK FACC, ALI FACP CCDS Ot I10 ESSENTIAL (PRIMARY) HYPERTENSION 10/05/2018 SABRINA KENDRICK FACC, ALI FACP CCDS Ot I25.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[place] CORONARY 10/05/2018 SABRINA KENDRICK FACC, ALI FACP CCDS Ot I65.23 OCCLUSION AND STENOSIS OF BILATERAL [place] 10/05/2018 SABRINA KENDRICK FACC, ALI FACP CCDS Ot R00.2 PALPITATIONS 10/05/2018 SABRINA KENDRICK FACC, ALI FACP CCDS Ot R06.02 SHORTNESS OF BREATH 10/05/2018 JODI MORALES MD R Ot G47.419 NARCOLEPSY WITHOUT CATAPLEXY 10/12/2018 JODI MORALES MD R Ot K57.30 DVRTCLOS OF LG INT W/O PERFORATION OR AB 10/12/2018 CARMEN KENDRICK JODI R Ot N20.1 CALCULUS OF URETER 10/12/2018 CARMEN KENDRICK JODI R Ot N28.1 CYST OF KIDNEY, ACQUIRED 10/18/2018 ANDRIA KENDRICK, MAGGY Alvarado Ot Z01.818 ENCOUNTER FOR OTHER PREPROCEDURAL EXAMIN 10/19/2018 MELVI DIEGO DO Ot 724.4 LUMBOSACRAL NEURITIS NOS 10/19/2018 BAIMA, HENRY L UPSET WELDING MACHINE OPERATOR Ot 244.9 HYPOTHYROIDISM NOS 10/19/2018 BAIMA, HENRY L UPSET WELDING MACHINE OPERATOR Ot 272.4 HYPERLIPIDEMIA NEC/NOS 10/19/2018 BAIMA, HENRY L UPSET WELDING MACHINE OPERATOR Ot 401.9 HYPERTENSION NOS 10/19/2018 BAIMA, HENRY L UPSET WELDING MACHINE OPERATOR Ot 414.00 CORON ATHEROSCLER NOS TYPE VESSEL, NATIV 10/19/2018 BAIMA, HENRY L UPSET WELDING MACHINE OPERATOR Ot 785.1 PALPITATIONS 10/19/2018 BAIMA, HENRY L UPSET WELDING MACHINE OPERATOR Ot 272.4 HYPERLIPIDEMIA NEC/NOS 10/19/2018 BAIMA, HENRY L UPSET WELDING MACHINE OPERATOR Ot 414.00 CORON ATHEROSCLER NOS TYPE VESSEL, NATIV 10/19/2018 SABRINA KENDRICK FACC, ALI FACP CCDS Ot 244.9 HYPOTHYROIDISM NOS 10/19/2018 SABRINA KENDRICK FACC, ALI FACP CCDS Ot 272.4 HYPERLIPIDEMIA NEC/NOS 10/19/2018 SABRINA KENDRICK FACC, ALI FACP CCDS Ot 278.00 OBESITY, NOS 10/19/2018 SABRINA KENDRICK FACC, ALI FACP CCDS Ot 401.9 HYPERTENSION NOS 10/19/2018 SABRINA KENDRICK FACC, ALI FACP CCDS Ot 414.00 CORON ATHEROSCLER NOS TYPE VESSEL, NATIV 10/19/2018 SABRINA KENDRICK FACC, ALI FACP CCDS Ot 530.81 ESOPHAGEAL REFLUX 10/19/2018 DICKINSON DO, TOREY L Ot 244.9 HYPOTHYROIDISM NOS 10/19/2018 BAIMA, HENRY L UPSET WELDING MACHINE OPERATOR Ot 272.4 HYPERLIPIDEMIA NEC/NOS 10/19/2018 BAIMA, HENRY L UPSET WELDING MACHINE OPERATOR Ot 414.00 CORON ATHEROSCLER NOS TYPE VESSEL, NATIV 10/19/2018 CARMEN KENDRICK, JODI R Ot 784.0 HEADACHE 10/19/2018 CARMEN KENDRICK, JODI R Ot 784.0 HEADACHE 10/19/2018 BAIMA, HENRY L UPSET WELDING MACHINE OPERATOR Ot E78.5 HYPERLIPIDEMIA, UNSPECIFIED 10/19/2018 BAIMA, HENRY L UPSET WELDING MACHINE OPERATOR Ot I10 ESSENTIAL (PRIMARY) HYPERTENSION 10/19/2018 BAIMA, HENRY L UPSET WELDING MACHINE OPERATOR Ot I25.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[place] CORONARY 10/19/2018 BAIMA, HENRY L UPSET WELDING MACHINE OPERATOR Ot R07.9 CHEST PAIN, UNSPECIFIED 10/19/2018 DICKINSON DO, TOREY L Ot E03.9 HYPOTHYROIDISM, UNSPECIFIED 10/19/2018 DICKINSON DO, TOREY L Ot E03.9 HYPOTHYROIDISM, UNSPECIFIED 10/19/2018 DICKINSON DO, TOREY L Ot E03.9 HYPOTHYROIDISM, UNSPECIFIED 10/19/2018 DICKINSON DO, TOREY L Ot E03.9 HYPOTHYROIDISM, UNSPECIFIED 10/19/2018 SABRINA KENDRICK FACC, ALI FACP CCDS Ot I10 ESSENTIAL (PRIMARY) HYPERTENSION 10/19/2018 SABRINA KENDRICK FACC, ALI FACP CCDS Ot I25.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[place] CORONARY 10/19/2018 SABRINA KENDRICK FACC, OCTAVIO FACP CCDS Ot I65.23 OCCLUSION AND STENOSIS OF BILATERAL [place] 10/19/2018 SABRINA MD FACC, ALI FACP CCDS Ot R00.2 PALPITATIONS 10/19/2018 SABRINA KENDRICK FACC, ALI FACP CCDS Ot R06.02 SHORTNESS OF BREATH 10/19/2018 SABRINA KENDRICK FACC, ALI FACP CCDS Ot I10 ESSENTIAL (PRIMARY) HYPERTENSION 10/19/2018 SABRINA KENDRICK FACC, ALI FACP CCDS Ot I25.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[place] CORONARY 10/19/2018 SABRINA KENDRICK FACC, ALI FACP CCDS Ot I65.23 OCCLUSION AND STENOSIS OF BILATERAL [place] 10/19/2018 SABRINA MD FACC, ALI FACP CCDS Ot R00.2 PALPITATIONS 10/19/2018 SABRINA KENDRICK FACC, ALI FACP CCDS Ot R06.02 SHORTNESS OF BREATH 10/19/2018 SABRINA KENDRICK FACC, ALI FACP CCDS Ot I10 ESSENTIAL (PRIMARY) HYPERTENSION 10/19/2018 SABRINA KENDRICK FACC, ALI FACP CCDS Ot I25.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[place] CORONARY 10/19/2018 SABRINA KENDRICK FACC, ALI FACP CCDS Ot I65.23 OCCLUSION AND STENOSIS OF BILATERAL [place] 10/19/2018 SABRINA KENDRICK FACC, ALI FACP CCDS Ot R00.2 PALPITATIONS 10/19/2018 SABRINA KENDRICK FACC, ALI FACP CCDS Ot R06.02 SHORTNESS OF BREATH 10/19/2018 SABRINA KENDRICK FACC, ALI FACP CCDS Ot I10 ESSENTIAL (PRIMARY) HYPERTENSION 10/19/2018 SABRINA KENDRICK FACC, ALI FACP CCDS Ot I25.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[place] CORONARY 10/19/2018 SABRINA KENDRICK FACC, ALI FACP CCDS Ot I65.23 OCCLUSION AND STENOSIS OF BILATERAL [place] 10/19/2018 SABRINA KENDRICK FACC, ALI FACP CCDS Ot R00.2 PALPITATIONS 10/19/2018 SABRINA KENDRICK FACC, ALI FACP CCDS Ot R06.02 SHORTNESS OF BREATH 10/19/2018 SABRINA KENDRICK FACC, ALI FACP CCDS Ot E78.4 OTHER HYPERLIPIDEMIA 10/19/2018 SABRINA KENDRICK FACC, ALI FACP CCDS Ot I10 ESSENTIAL (PRIMARY) HYPERTENSION 10/19/2018 SABRINA KENDRICK FACC, ALI FACP CCDS Ot I25.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[place] CORONARY 10/19/2018 SABRINA KENDRICK FAC, ALI FACP CCDS Ot I65.23 OCCLUSION AND STENOSIS OF BILATERAL [place] 10/19/2018 SABRINA KENDRICK FAC, ALI FACP CCDS Ot R00.2 PALPITATIONS 10/19/2018 SABRINA KENDRICK FAC, ALI FACP CCDS Ot R06.02 SHORTNESS OF BREATH 10/19/2018 JODI MORALES MD R Ot G47.419 NARCOLEPSY WITHOUT CATAPLEXY 10/19/2018 JODI MORALES MD R Ot K57.30 DVRTCLOS OF LG INT W/O PERFORATION OR AB 10/19/2018 JODI MORALES MD R Ot N20.1 CALCULUS OF URETER 10/19/2018 JODI MORALES MD R Ot N28.1 CYST OF KIDNEY, ACQUIRED 10/19/2018 ANDRIA KENDRICK, MAGGY Alvarado Ot N20.1 CALCULUS OF URETER Procedures Code Description Performed By Performed On 33.23 OTHER BRONCHOSCOPY 11/25/2009 45.13 OTHER ENDOSCOPY OF SM INTEST 11/25/2009 96.56 BRONCH/TRACH LAVAGE NEC 11/25/2009 49.01 INCIS PERIANAL ABSCESS 03/04/2010 Results Test Result Range THYROID STIMULATING HORMONE - 08/21/16 13:35 THYROID STIMULATING HORMONE 0.11 u[iU]/mL 0.35-4.94 Complete blood count (CBC) with automated white blood cell (WBC) differential - 04/20/17 15:40 Blood leukocytes automated count (number/volume) 7.7 10*3/uL 4.3-11.0 Blood erythrocytes automated count (number/volume) 4.64 10*6/uL 4.35-5.85 Venous blood hemoglobin measurement (mass/volume) 14.3 g/dL 13.3-17.7 Blood hematocrit (volume fraction) 41 % 40-54 Automated erythrocyte mean corpuscular volume 89 [foz_us] 80-99 Automated erythrocyte mean corpuscular hemoglobin (mass per erythrocyte) 31 pg 25-34 Automated erythrocyte mean corpuscular hemoglobin concentration measurement ( mass/volume) 35 g/dL 32-36 Automated erythrocyte distribution width ratio 12.7 % 10.0-14.5 Automated blood platelet count (count/volume) 203 10*3/uL 130-400 Automated blood platelet mean volume measurement 9.6 [foz_us] 7.4-10.4 Automated blood neutrophils/100 leukocytes 50 % 42-75 Automated blood lymphocytes/100 leukocytes 36 % 12-44 Blood monocytes/100 leukocytes 10 % 0-12 Automated blood eosinophils/100 leukocytes 4 % 0-10 Automated blood basophils/100 leukocytes 0 % 0-10 Blood neutrophils automated count (number/volume) 3.8 10*3 1.8-7.8 Blood lymphocytes automated count (number/volume) 2.8 10*3 1.0-4.0 Blood monocytes automated count (number/volume) 0.8 10*3 0.0-1.0 Automated eosinophil count 0.3 10*3/uL 0.0-0.3 Automated blood basophil count (count/volume) 0.0 10*3/uL 0.0-0.1 Comprehensive metabolic panel - 04/20/17 15:40 Serum or plasma sodium measurement (moles/volume) 141 mmol/L 135-145 Serum or plasma potassium measurement (moles/volume) 3.8 mmol/L 3.6-5.0 Serum or plasma chloride measurement (moles/volume) 111 mmol/L 98-107 Carbon dioxide 25 mmol/L 21-32 Serum or plasma anion gap determination (moles/volume) 5 mmol/L 5-14 Serum or plasma urea nitrogen measurement (mass/volume) 20 mg/dL 7-18 Serum or plasma creatinine measurement (mass/volume) 0.88 mg/dL 0.60-1.30 Serum or plasma urea nitrogen/creatinine mass ratio 23 0 -20 Serum or plasma creatinine measurement with calculation of estimated glomerular filtration rate > NRG Serum or plasma glucose measurement (mass/volume) 92 mg/dL 70-105 Serum or plasma calcium measurement (mass/volume) 8.8 mg/dL 8.5-10.1 Serum or plasma total bilirubin measurement (mass/volume) 0.5 mg/dL 0.1-1.0 Serum or plasma alkaline phosphatase measurement (enzymatic activity/volume) 73 U/L 40-136 Serum or plasma aspartate aminotransferase measurement (enzymatic activity/ volume) 18 U/L 5-34 Serum or plasma alanine aminotransferase measurement (enzymatic activity/volume ) 34 U/L 0-55 Serum or plasma protein measurement (mass/volume) 5.7 g/dL 6.4-8.2 Serum or plasma albumin measurement (mass/volume) 4.0 g/dL 3.2-4.5 Lipid 1996 panel - 04/20/17 15:40 Serum or plasma triglyceride measurement (mass/volume) 73 mg/dL <150 Serum or plasma cholesterol measurement (mass/volume) 115 mg/dL < 200 Serum or plasma cholesterol in HDL measurement (mass/volume) 46 mg/ dL 40-60 Cholesterol in LDL [mass/volume] in serum or plasma by direct assay 50 mg/dL 1-129 Serum or plasma cholesterol in VLDL measurement (mass/volume) 15 mg/ dL 5-40 Complete blood count (CBC) with automated white blood cell (WBC) differential - 07/28/17 05:35 Blood leukocytes automated count (number/volume) 10.2 10*3/uL 4.3-11.0 Blood erythrocytes automated count (number/volume) 4.93 10*6/uL 4.35-5.85 Venous blood hemoglobin measurement (mass/volume) 15.1 g/dL 13.3-17.7 Blood hematocrit (volume fraction) 43 % 40-54 Automated erythrocyte mean corpuscular volume 88 [foz_us] 80-99 Automated erythrocyte mean corpuscular hemoglobin (mass per erythrocyte) 31 pg 25-34 Automated erythrocyte mean corpuscular hemoglobin concentration measurement ( mass/volume) 35 g/dL 32-36 Automated erythrocyte distribution width ratio 12.6 % 10.0-14.5 Automated blood platelet count (count/volume) 201 10*3/uL 130-400 Automated blood platelet mean volume measurement 10.4 [foz_us] 7.4-10.4 Automated blood neutrophils/100 leukocytes 69 % 42-75 Automated blood lymphocytes/100 leukocytes 21 % 12-44 Blood monocytes/100 leukocytes 7 % 0-12 Automated blood eosinophils/100 leukocytes 3 % 0-10 Automated blood basophils/100 leukocytes 0 % 0-10 Blood neutrophils automated count (number/volume) 7.0 10*3 1.8-7.8 Blood lymphocytes automated count (number/volume) 2.1 10*3 1.0-4.0 Blood monocytes automated count (number/volume) 0.7 10*3 0.0-1.0 Automated eosinophil count 0.3 10*3/uL 0.0-0.3 Automated blood basophil count (count/volume) 0.0 10*3/uL 0.0-0.1 PT panel in platelet poor plasma by coagulation assay - 07/28/17 05:35 Prothrombin time (PT) in platelet poor plasma by coagulation assay 12.2 s 12.2-14.7 INR in platelet poor plasma or blood by coagulation assay 0.9 0.8-1.4 Activated partial thromboplastin time (aPTT) in platelet poor plasma bycoagulation assay - 07/28/17 05:35 Activated partial thromboplastin time (aPTT) in platelet poor plasma bycoagulation assay 26 s 24-35 Comprehensive metabolic panel - 07/28/17 05:35 Serum or plasma sodium measurement (moles/volume) 142 mmol/L 135-145 Serum or plasma potassium measurement (moles/volume) 3.8 mmol/L 3.6-5.0 Serum or plasma chloride measurement (moles/volume) 111 mmol/L 98-107 Carbon dioxide 20 mmol/L 21-32 Serum or plasma anion gap determination (moles/volume) 11 mmol/L 5-14 Serum or plasma urea nitrogen measurement (mass/volume) 18 mg/dL 7-18 Serum or plasma creatinine measurement (mass/volume) 0.87 mg/dL 0.60-1.30 Serum or plasma urea nitrogen/creatinine mass ratio 21 NRG Serum or plasma creatinine measurement with calculation of estimated glomerular filtration rate > NRG Serum or plasma glucose measurement (mass/volume) 145 mg/dL 70-105 Serum or plasma calcium measurement (mass/volume) 9.1 mg/dL 8.5-10.1 Serum or plasma total bilirubin measurement (mass/volume) 0.4 mg/dL 0.1-1.0 Serum or plasma alkaline phosphatase measurement (enzymatic activity/volume) 85 U/L 40-136 Serum or plasma aspartate aminotransferase measurement (enzymatic activity/ volume) 17 U/L 5-34 Serum or plasma alanine aminotransferase measurement (enzymatic activity/volume ) 26 U/L 0-55 Serum or plasma protein measurement (mass/volume) 6.5 g/dL 6.4-8.2 Serum or plasma albumin measurement (mass/volume) 4.2 g/dL 3.2-4.5 Magnesium - 07/28/17 05:35 Magnesium 2.3 mg/dL 1.8-2.4 Serum or plasma creatine kinase measurement (enzymatic activity/volume) - 07/28 05:35 Serum or plasma creatine kinase measurement (enzymatic activity/volume) 220 U/L 30-200 Serum or plasma creatine kinase MB measurement (enzymatic activity/volume) - 05:35 Serum or plasma creatine kinase MB measurement (enzymatic activity/volume) 2.7 ng/mL <6.6 Serum or plasma troponin i.cardiac measurement (mass/volume) - 07/28/17 05:35 Serum or plasma troponin i.cardiac measurement (mass/volume) < ng/ mL <0.30 Serum or plasma lithium measurement (moles/volume) - 07/28/17 05:35 BNP level 14.9 pg/mL <100.0 Serum or plasma amylase measurement (enzymatic activity/volume) - 07/28/17 05: 35 Serum or plasma amylase measurement (enzymatic activity/volume) 39 U /L 25-125 Lipase - 07/28/17 05:35 Lipase 46 U/L 8-78 Complete blood count (CBC) with automated white blood cell (WBC) differential - 07/28/17 08:30 Blood leukocytes automated count (number/volume) 9.9 10*3/uL 4.3-11.0 Blood erythrocytes automated count (number/volume) 4.81 10*6/uL 4.35-5.85 Venous blood hemoglobin measurement (mass/volume) 14.8 g/dL 13.3-17.7 Blood hematocrit (volume fraction) 43 % 40-54 Automated erythrocyte mean corpuscular volume 89 [foz_us] 80-99 Automated erythrocyte mean corpuscular hemoglobin (mass per erythrocyte) 31 pg 25-34 Automated erythrocyte mean corpuscular hemoglobin concentration measurement ( mass/volume) 35 g/dL 32-36 Automated erythrocyte distribution width ratio 12.6 % 10.0-14.5 Automated blood platelet count (count/volume) 202 10*3/uL 130-400 Automated blood platelet mean volume measurement 9.9 [foz_us] 7.4-10.4 Automated blood neutrophils/100 leukocytes 81 % 42-75 Automated blood lymphocytes/100 leukocytes 15 % 12-44 Blood monocytes/100 leukocytes 4 % 0-12 Automated blood eosinophils/100 leukocytes 1 % 0-10 Automated blood basophils/100 leukocytes 0 % 0-10 Blood neutrophils automated count (number/volume) 8.0 10*3 1.8-7.8 Blood lymphocytes automated count (number/volume) 1.4 10*3 1.0-4.0 Blood monocytes automated count (number/volume) 0.4 10*3 0.0-1.0 Automated eosinophil count 0.1 10*3/uL 0.0-0.3 Automated blood basophil count (count/volume) 0.0 10*3/uL 0.0-0.1 Comprehensive metabolic panel - 07/28/17 08:30 Serum or plasma sodium measurement (moles/volume) 141 mmol/L 135-145 Serum or plasma potassium measurement (moles/volume) 4.1 mmol/L 3.6-5.0 Serum or plasma chloride measurement (moles/volume) 111 mmol/L 98-107 Carbon dioxide 22 mmol/L 21-32 Serum or plasma anion gap determination (moles/volume) 8 mmol/L 5-14 Serum or plasma urea nitrogen measurement (mass/volume) 18 mg/dL 7-18 Serum or plasma creatinine measurement (mass/volume) 0.82 mg/dL 0.60-1.30 Serum or plasma urea nitrogen/creatinine mass ratio 22 NRG Serum or plasma creatinine measurement with calculation of estimated glomerular filtration rate > NRG Serum or plasma glucose measurement (mass/volume) 134 mg/dL 70-105 Serum or plasma calcium measurement (mass/volume) 8.9 mg/dL 8.5-10.1 Serum or plasma total bilirubin measurement (mass/volume) 0.4 mg/dL 0.1-1.0 Serum or plasma alkaline phosphatase measurement (enzymatic activity/volume) 79 U/L 40-136 Serum or plasma aspartate aminotransferase measurement (enzymatic activity/ volume) 16 U/L 5-34 Serum or plasma alanine aminotransferase measurement (enzymatic activity/volume ) 25 U/L 0-55 Serum or plasma protein measurement (mass/volume) 6.2 g/dL 6.4-8.2 Serum or plasma albumin measurement (mass/volume) 4.0 g/dL 3.2-4.5 Complete urinalysis with reflex to culture - 07/28/17 12:05 Urine color determination YELLOW NRG Urine clarity determination CLEAR NRG Urine pH measurement by test strip 5 5-9 Specific gravity of urine by test strip 1.025 1.016- 1.022 Urine protein assay by test strip, semi-quantitative NEGATIVE NEGATIVE Urine glucose detection by automated test strip NEGATIVE NEGATIVE Erythrocytes detection in urine sediment by light microscopy 2+ NEGATIVE Urine ketones detection by automated test strip NEGATIVE NEGATIVE Urine nitrite detection by test strip NEGATIVE NEGATIVE Urine total bilirubin detection by test strip NEGATIVE NEGATIVE Urine urobilinogen measurement by automated test strip (mass/volume) NORMAL NORMAL Urine leukocyte esterase detection by dipstick NEGATIVE NEGATIVE Automated urine sediment erythrocyte count by microscopy (number/high power field) NONE NRG Automated urine sediment leukocyte count by microscopy (number/high power field ) RARE NRG Bacteria detection in urine sediment by light microscopy TRACE NRG Crystals detection in urine sediment by light microscopy NONE NRG Casts detection in urine sediment by light microscopy NONE NRG Mucus detection in urine sediment by light microscopy LARGE NRG Complete urinalysis with reflex to culture NO NRG Complete blood count (CBC) with automated white blood cell (WBC) differential - 07/29/17 07:05 Blood leukocytes automated count (number/volume) 12.1 10*3/uL 4.3-11.0 Blood erythrocytes automated count (number/volume) 4.64 10*6/uL 4.35-5.85 Venous blood hemoglobin measurement (mass/volume) 14.3 g/dL 13.3-17.7 Blood hematocrit (volume fraction) 42 % 40-54 Automated erythrocyte mean corpuscular volume 90 [foz_us] 80-99 Automated erythrocyte mean corpuscular hemoglobin (mass per erythrocyte) 31 pg 25-34 Automated erythrocyte mean corpuscular hemoglobin concentration measurement ( mass/volume) 34 g/dL 32-36 Automated erythrocyte distribution width ratio 12.6 % 10.0-14.5 Automated blood platelet count (count/volume) 190 10*3/uL 130-400 Automated blood platelet mean volume measurement 9.5 [foz_us] 7.4-10.4 Automated blood neutrophils/100 leukocytes 74 % 42-75 Automated blood lymphocytes/100 leukocytes 14 % 12-44 Blood monocytes/100 leukocytes 10 % 0-12 Automated blood eosinophils/100 leukocytes 2 % 0-10 Automated blood basophils/100 leukocytes 0 % 0-10 Blood neutrophils automated count (number/volume) 8.9 10*3 1.8-7.8 Blood lymphocytes automated count (number/volume) 1.8 10*3 1.0-4.0 Blood monocytes automated count (number/volume) 1.2 10*3 0.0-1.0 Automated eosinophil count 0.2 10*3/uL 0.0-0.3 Automated blood basophil count (count/volume) 0.0 10*3/uL 0.0-0.1 Comprehensive metabolic panel - 07/29/17 07:05 Serum or plasma sodium measurement (moles/volume) 137 mmol/L 135-145 Serum or plasma potassium measurement (moles/volume) 3.9 mmol/L 3.6-5.0 Serum or plasma chloride measurement (moles/volume) 106 mmol/L 98-107 Carbon dioxide 23 mmol/L 21-32 Serum or plasma anion gap determination (moles/volume) 8 mmol/L 5-14 Serum or plasma urea nitrogen measurement (mass/volume) 14 mg/dL 7-18 Serum or plasma creatinine measurement (mass/volume) 0.82 mg/dL 0.60-1.30 Serum or plasma urea nitrogen/creatinine mass ratio 17 NRG Serum or plasma creatinine measurement with calculation of estimated glomerular filtration rate > NRG Serum or plasma glucose measurement (mass/volume) 142 mg/dL 70-105 Serum or plasma calcium measurement (mass/volume) 8.5 mg/dL 8.5-10.1 Serum or plasma total bilirubin measurement (mass/volume) 0.6 mg/dL 0.1-1.0 Serum or plasma alkaline phosphatase measurement (enzymatic activity/volume) 73 U/L 40-136 Serum or plasma aspartate aminotransferase measurement (enzymatic activity/ volume) 13 U/L 5-34 Serum or plasma alanine aminotransferase measurement (enzymatic activity/volume ) 19 U/L 0-55 Serum or plasma protein measurement (mass/volume) 5.8 g/dL 6.4-8.2 Serum or plasma albumin measurement (mass/volume) 3.6 g/dL 3.2-4.5 Encounters ACCT No. Visit Date/Time Discharge Status Pt. Type Provider Facility Loc./Unit Complaint [id number] 10/18/2018 13:43:00 10/18/2018 14:09:00 DIS Outpatient MAGGY AYERS MD [facility] PREOP LEFT URETERAL STONE [id number] 10/12/2018 14:37:00 10/12/2018 23:59:59 CLS Outpatient MAGGY AYERS MD [facility] RAD LT STONE [id number] 10/06/2018 09:39:00 10/06/2018 23:59:59 CLS Outpatient CARMEN KENDRICK, JODI Rodríguez [facility] RAD LLQ PAIN [id number] 07/28/2017 06:20:00 07/30/2017 09:50:00 DIS Inpatient CHETAN TINOCO DO [facility] 4TH SMALL BOWEL OBSTRUCTION [id number] 04/20/2017 15:31:00 04/20/2017 23:59:59 CLS Outpatient JODI MORALES MD R [facility] LAB NARCOLEPSY [id number] 03/11/2017 19:57:00 03/12/2017 05:10:00 DIS Outpatient IAN MILES SAMPLE SHOE INSPECTOR AND REWORKER [facility] SLEEP HEATH [id number] 10/20/2016 15:19:00 10/20/2016 23:59:59 CLS Outpatient SABRINA KENDRICK FACC, ALI FACP CCDS [facility] CARD CAD [id number] 10/09/2016 07:44:00 10/09/2016 23:59:59 CLS Outpatient SABRINA KENDRICK FACC, ALI FACP CCDS [facility] LAB CAD,SOB,HTN, CAROTID ARTERIAL DIS,PALPITATION [id number] 09/16/2016 14:09:00 09/16/2016 23:59:59 CLS Outpatient SABRINA KENDRICK FACC, ALI FACP CCDS [facility] RT SOB [id number] 09/15/2016 07:11:00 09/15/2016 23:59:59 CLS Outpatient SABRINA KENDRICK FACC, ALI FACP CCDS [facility] CARD HTN,CAD,SOB [id number] 09/14/2016 12:19:00 09/14/2016 23:59:59 CLS Outpatient SABRINA KENDRICK FACC, ALI FACP CCDS [facility] CARD HTN,CAD,SOB [id number] 08/21/2016 13:20:00 08/21/2016 23:59:59 CLS Outpatient TOREY DICKINSON DO [facility] LAB HYPOTHYROIDISM [id number] 03/12/2016 13:52:00 03/12/2016 23:59:59 CLS Outpatient TOREY DICKINSON DO [facility] LAB HYPOTHYROIDISM [id number] 01/10/2016 11:46:00 01/10/2016 23:59:59 CLS Outpatient GREY DICKINSON DOISON L [facility] LAB HYPOTHYROIDISM [id number] 11/19/2015 20:40:00 11/20/2015 04:50:00 DIS Outpatient JODI MORALES MD [facility] SLEEP OBSERVED APNEAS,SNORING ,NARCOLEPSY [id number] 11/15/2015 09:41:00 11/15/2015 23:59:59 CLS Outpatient ALOK CUMMINGSGREYTOREY L [facility] LAB HYPOTHYROIDISM [id number] 09/05/2015 07:33:00 09/05/2015 23:59:59 CLS Outpatient BAIMA HENRY L UPSET WELDING MACHINE OPERATOR [facility] CARD CP,CAD [id number] 08/06/2015 11:28:00 08/06/2015 23:59:59 CLS Outpatient JODI MORALES MD [facility] LAB TOWPERAL PAIN [id number] 08/02/2015 13:21:00 08/02/2015 23:59:59 CLS Outpatient JODI MORALES MD [facility] RAD WORSENING HEADACHE [id number] 07/11/2015 07:02:00 07/11/2015 23:59:59 CLS Outpatient HENRY CALDWELL L UPSET WELDING MACHINE OPERATOR [facility] LAB HLP,CAD [id number] 05/24/2015 11:15:00 05/24/2015 23:59:59 CLS Outpatient ALOK CUMMINGSGREYTOREY L [facility] LAB HYPOTHYROIDISM [id number] 11/05/2014 07:22:00 11/05/2014 23:59:59 CLS Outpatient SABRINA KENDRICK FACC, OCTAVIO FACSallie CCDS [facility] LAB HYPOTHYROIDISM ,HYPERLIPIDEMIA,H/O HYPOTENSION,HTN, [id number] 06/18/2014 15:28:00 06/18/2014 23:59:59 CLS Outpatient BAIMA, HENRY L UPSET WELDING MACHINE OPERATOR [facility] LAB CAD,HYPERLIPADEMIA [id number] 03/12/2014 07:34:00 03/12/2014 23:59:59 CLS Outpatient BAIMA HENRY L UPSET WELDING MACHINE OPERATOR [facility] CARD PALPITATIONS [id number] 2014 11:12:00 03/02/2014 13:05:00 DIS Inpatient CARMEN KENDRICK, JODI Rodríguez [facility] CSD CHEST DISCOMFORT [id number] 05/30/2013 13:13:00 05/30/2013 23:59:59 CLS Outpatient JOHNATHON CUMMINGS MELVI [place] [facility] RAD LUMBAR RADICULOPATHY [id number] 10/19/2018 06:27:00 ACT Outpatient MAGGY AYERS MD [facility] SDC LEFT URETERAL STONE [id number] 11/21/2015 07:41:00 Document Registration [id number] 11/21/2015 07:41:00 Document Registration [id number] 11/21/2015 07:41:00 Document Registration [id number] 01/17/2013 15:31:00 Document Registration [id number] 05/30/2012 16:41:00 Document Registration [id number] 12/31/2011 11:54:00 Document Registration [id number] 10/29/2011 00:00:00 Document Registration [id number] 09/24/2011 06:44:00 Document Registration [id number] 08/22/2011 08:05:00 Document Registration [id number] 08/09/2011 17:45:00 Document Registration [id number] 08/07/2011 06:04:00 Document Registration [id number] 03/05/2011 09:52:00 Document Registration [id number] 01/21/2011 15:12:00 Document Registration [id number] 11/18/2010 05:50:00 Document Registration [id number] 11/17/2010 08:57:00 Document Registration [id number] 11/06/2010 07:09:00 Document Registration [id number] 09/18/2010 10:47:00 Document Registration [id number] 08/10/2010 11:44:00 Document Registration [id number] 08/05/2010 21:10:00 Document Registration [id number] 06/08/2010 00:00:00 Document Registration [id number] 03/22/2010 18:00:00 Document Registration
[2018-10-19 12:20] VITALS: BP 153/89
--- NOTE | 2018-10-19 13:13 | Anesthesia-General Post-Op ---
General Patient Condition Mental Status/LOC: Same as Preop Cardiovascular: Satisfactory Nausea/Vomiting: Absent Respiratory: Satisfactory Pain: Controlled Complications: Absent Post Op Complications Complications None Follow Up Care/Instructions Patient Instructions None needed. Anesthesia/Patient Condition Patient Condition Patient is doing well, no complaints, stable vital signs, no apparent adverse anesthesia problems. No complications reported per nursing. YADI PARR CRNA Oct 19, 2018 13:13
== END 2018-10-19 12:20 | disposition home or self-care (01) ==
LOC: SDC 06:27
PROVIDERS: ATTEND Urology
DX: N20.1 Calculus of ureter (principal); N40.0 Benign prostatic hyperplasia without lower urinary tract symptoms; N52.9 Male erectile dysfunction, unspecified; I10 Essential (primary) hypertension; I25.10 Atherosclerotic heart disease of native coronary artery without angina pectoris; E78.5 Hyperlipidemia, unspecified; G47.33 Obstructive sleep apnea (adult) (pediatric); Z95.5 Presence of coronary angioplasty implant and graft; Z79.82 Long term (current) use of aspirin; Z79.899 Other long term (current) drug therapy
CPT/HCPCS: 74018; 87081

== ENCOUNTER → 2018-10-21 | Outpatient (CLI) | payer BC ==
[~2018-10-21] MED LIST changes: +HYDR-3870 PO; +HYOS0.3710 PO; +NITR-68 PO; +PHEN-640 PO; +SULF1TAB35 PO; +TAMS0.4C98 PO
--- NOTE | 2018-10-21 11:31 | Diagnostic Imaging Report ---
EXAMINATION: Supine abdomen at 10:39 a.m. INDICATION: Left ureteral stone. FINDINGS: The prior exam of 10/19/2018 noted a ureteral stent in place on the left. The stent is again evident on this study and remains in good position. Both kidneys are obscured by bowel gas and fecal material. There is no clear evidence for nephrolithiasis. No other abnormality is noted. IMPRESSION: The ureteral stent on the left seen previously appears stable. Dictated by: Dictated on workstation # [id number]
== END ==
LOC: RAD 10:00
PROVIDERS: ATTEND Urology
DX: N20.1 Calculus of ureter (principal); Z96.0 Presence of urogenital implants
CPT/HCPCS: 74018

== ENCOUNTER 2018-10-24 10:00 | Outpatient (CLI) | payer BC ==
[~2018-10-24] VITALS: Ht 176.5 cm; Wt 84.4 kg
[~2018-10-24 10:00] MED LIST changes: -HYDR-3870 PO; -HYOS0.3710 PO; -NITR-68 PO
[2018-10-24] MEDS ORDERED: HYOS0.3710 PO (10:24)
[2018-10-25] MEDS ORDERED: TAMS0.4C98 PO (11:40)
[2018-10-25] MEDS ORDERED: NITR-68 PO (11:40)
[2018-10-25] MEDS ORDERED: HYDR-3870 PO (11:40)
== END 2018-10-24 10:44 ==
LOC: PREOP 10:00
PROVIDERS: ATTEND Urology
DX: Z01.818 Encounter for other preprocedural examination (principal)

== ENCOUNTER 2018-10-25 06:52 | Day surgery (SDC) | payer BC ==
[~2018-10-25] VITALS: Ht 176.5 cm; Wt 80.7 kg
[~2018-10-25 06:52] MED LIST changes: +HYOS0.3710 PO
--- NOTE | 2018-10-25 07:09 | Progress Note-Pre Operative ---
Pre-Operative Progress Note H&P Reviewed The H&P was reviewed, patient examined and no changes noted. Date Seen by Provider: Oct 25, 2018 Time Seen by Provider: 07:09 Date H&P Reviewed: Oct 25, 2018 Time H&P Reviewed: 07:09 Pre-Operative Diagnosis: LT URETERAL STONE MAGGY AYERS MD Oct 25, 2018 07:09
[2018-10-25 07:15] VITALS: BP 116/88
[2018-10-25] MEDS ORDERED: cefTRIAXone FOR IV USE 1,000 MG in NS (IVPB) 50 ML IV ONE (07:30)
[2018-10-25] MEDS: LACTATED RINGERS 1,000 ML IV PRN ×2 (07:36→09:39)
--- NOTE | 2018-10-25 08:09 | Diagnostic Imaging Report ---
INDICATION: Left-sided extracorporeal shockwave lithotripsy. TECHNIQUE: Single supine view of the abdomen 7:49 AM CORRELATION STUDY: 10/21/2018 FINDINGS: Large amount of overlying bowel gas and stool is present. A left-sided ureteral stent appears unchanged in position and orientation. There is a density superimposed just lateral to the proximal portion. There is also somewhat similar-appearing density more laterally. Given change favors probable gastrointestinal contents. Additionally, there is question of small density superimposed over the proximal third of the stent at approximately the L3 level. This measures approximately 4 mm, possibility of a small ureteral stone not excluded. IMPRESSION: 1. Stable positioning of a left ureteral stent. 2. Questionable density superimposes the proximal third of the stent, could reflect a small ureteral stone. Dictated by: Dictated on workstation # [id number]
[2018-10-25] MEDS ORDERED: SEVOFLURANE (ULTANE) 15 ML INHAL SOLN ONE (09:15)
[2018-10-25] MEDS ORDERED: fentaNYL INJECTION 100 MCG/2 ML AMP ONE (09:15)
[2018-10-25] MEDS ORDERED: proPOfol 200 MG/20 ML (DIPRIVAN) VIAL IV ONE (09:15)
[2018-10-25] MEDS ORDERED: FUROSEMIDE 40 MG/4 ML INJ (LASIX) ONE (09:15)
[2018-10-25] MEDS ORDERED: LIDOCAINE PF 2% 5 ML (XYLOCAINE) VIAL ONE (09:15)
[2018-10-25] MEDS ORDERED: KETOROLAC 30 MG/ML VIAL ONE (09:15)
[2018-10-25] MEDS ORDERED: ONDANSETRON 4 MG/2 ML (SDV) Z0FRAN ONE (09:15)
[2018-10-25] MEDS ORDERED: DEXAMETHASONE 10 MG/ML (DECADRON) 1 ML VIAL ONE (09:15)
--- NOTE | 2018-10-25 09:38 | Progress Note-Post Operative ---
Post-Operative Progess Note Surgeon (s)/Distribution Operations Supervisor (s) Surgeon MAGGY AYERS MD Distribution Operations Supervisor: NONE Pre-Operative Diagnosis LT URETERAL STONE Post-Operative Diagnosis SAME Procedure & Operative Findings Date of Procedure 10/25/18 Procedure Performed/Findings LT ESWL AND CYSTOSCOPY WITH REMOVAL OF STENT Anesthesia Type GENERAL Estimated Blood Loss Estimated blood loss (mL): NONE Specimens/Packing Specimens Removed NONE Packing: NONE MAGGY AYERS MD Oct 25, 2018 09:38
--- NOTE | 2018-10-25 09:39 | Discharge Inst-Urology ---
Discharge Inst-Urology Discharge Medications New, Converted, or Re-newed RX: RX on Chart Patient Instructions/Follow Up Plan Please make appointment to been seen in office in 4 weeks. KUB prior to it KUB on way home Post ESWL instructions Increase oral fluids for 48 hours and then as needed. Diet and Activity as tolerated. If questions or concerns contact your physician Or seek help at emergency department. MAGGY AYERS MD Oct 25, 2018 09:39
[2018-10-25] MEDS ORDERED: ONDANSETRON 4 MG/2 ML (SDV) Z0FRAN IVP PRN (10:15)
[2018-10-25] MEDS ORDERED: morphine INJ 10 MG/ML 1ML (SYR OR VIAL) IVP ONE (10:15)
[2018-10-25 10:55] VITALS: BP 115/70
[2018-10-25 11:25] VITALS: BP 119/72
[2018-10-25] MEDS ORDERED: NITR-68 PO (11:40)
[2018-10-25] MEDS ORDERED: TAMS0.4C98 PO (11:40)
[2018-10-25] MEDS ORDERED: HYDR-3870 PO (11:40)
[2018-10-25 11:55] VITALS: BP 116/77
[2018-10-25 12:15] VITALS: BP 116/77
--- NOTE | 2018-10-25 13:21 | OPERATIVE REPORT ---
DATE OF SERVICE: 10/25/2018 PREOPERATIVE DIAGNOSIS: Left proximal ureteral stone. POSTOPERATIVE DIAGNOSIS: Left proximal ureteral stone. OPERATION PERFORMED: Left ESWL, cystoscopy and removal of left stent. SURGEON: Samuel Ayers MD ANESTHESIA: General. COMPLICATIONS: None. DESCRIPTION OF PROCEDURE: Under satisfactory general anesthesia, the patient supine on the ESWL table, the left proximal ureteral stone was localized. Shocks were delivered at kV of 6. Total of 2500 shocks completely fragmented the stone. Genitalia were prepped and draped in the usual sterile fashion. Flexible cystoscope was introduced under vision. The distal end of the left ureteral stent was visualized. It was grasped with forceps and extracted completely. Again, looking at the results of the ESWL, with good results, it was almost inability to see the stone. The patient received 30 mg of Toradol and 20 mg of Lasix at the end of the procedure. The patient tolerated the procedure and anesthesia well, was sent to recovery room in stable condition. Job ID: [id number] DocumentID: [id number] Dictated Date: 10/25/2018 09:57:38 Cryptologic Technician Date: 10/25/2018 13:21:02 Dictated By: SAMUEL AYERS MD
--- NOTE | 2018-10-25 13:48 | Diagnostic Imaging Report ---
INDICATION: Status post ESWL. COMPARISON: Earlier same day. FINDINGS: Single frontal radiographic view of the abdomen was obtained and demonstrates interval removal of left-sided double-J ureteral stent. No unexpected radiopaque foreign bodies or extraosseous calcifications are seen. Small collecting system calculi may be obscured by gas within the large and small bowel. There is no large collection of free intraperitoneal air. IMPRESSION: 1. Interval removal of left-sided double-J ureteral stent. Otherwise, stable exam. Dictated by: Dictated on workstation # [id number]
--- NOTE | 2018-10-25 14:39 | Anesthesia-General Post-Op ---
General Patient Condition Mental Status/LOC: Same as Preop Cardiovascular: Satisfactory Nausea/Vomiting: Absent Respiratory: Satisfactory Pain: Controlled Complications: Absent Post Op Complications Complications None Follow Up Care/Instructions Patient Instructions None needed. Anesthesia/Patient Condition Patient Condition Patient is doing well, no complaints, stable vital signs, no apparent adverse anesthesia problems. No complications reported per nursing. CHRISTEL GREGORIO CRNA Oct 25, 2018 14:39
== END 2018-10-25 12:23 | disposition home or self-care (01) ==
LOC: SDC 06:52
PROVIDERS: ATTEND Urology
DX: N20.1 Calculus of ureter (principal); I10 Essential (primary) hypertension; I25.10 Atherosclerotic heart disease of native coronary artery without angina pectoris; G47.33 Obstructive sleep apnea (adult) (pediatric); K21.9 Gastro-esophageal reflux disease without esophagitis; Z79.82 Long term (current) use of aspirin; Z79.891 Long term (current) use of opiate analgesic; Z79.899 Other long term (current) drug therapy; Z95.5 Presence of coronary angioplasty implant and graft
CPT/HCPCS: 74018; 87081

== ENCOUNTER 2018-11-09 05:39 | Outpatient (CLI) | payer BC ==
[~2018-11-09] VITALS: Ht 176.5 cm; Wt 80.7 kg
[~2018-11-09 05:39] MED LIST changes: +HYDR-3870 PO; +NITR-68 PO
== END 2018-11-09 13:34 | disposition home or self-care (01) ==
LOC: PREOP 05:39
PROVIDERS: ATTEND Surgery
DX: Z01.818 Encounter for other preprocedural examination (principal)

== ENCOUNTER 2018-11-15 07:57 | Day surgery (SDC) | payer BC ==
[~2018-11-15] VITALS: Ht 176.5 cm; Wt 80.7 kg
[2018-11-15] MEDS ORDERED: LACTATED RINGERS 1,000 ML IV ONE (08:06)
[2018-11-15] MEDS ORDERED: LACTATED RINGERS 1,000 ML IV STA (08:07)
[2018-11-15 08:19] VITALS: BP 120/85
[2018-11-15] MEDS ORDERED: CLOP75TA69 PO (08:25)
[2018-11-15] MEDS ORDERED: ASPI-999 PO (08:25)
[2018-11-15] MEDS ORDERED: proPOfol 200 MG/20 ML (DIPRIVAN) VIAL IV ONE (08:51)
[2018-11-15] MEDS ORDERED: MIDAZOLAM 2 MG/2 ML (VERSED) VIAL ONE (08:51)
--- NOTE | 2018-11-15 08:54 | Progress Note-Pre Operative ---
Pre-Operative Progress Note H&P Reviewed The H&P was reviewed, patient examined and no changes noted. Date Seen by Provider: Nov 15, 2018 Time Seen by Provider: 08:54 Date H&P Reviewed: Nov 15, 2018 Time H&P Reviewed: 08:54 Pre-Operative Diagnosis: screening colonoscopy CHETAN TINOCO DO Nov 15, 2018 08:54
--- NOTE | 2018-11-15 09:29 | Progress Note-Post Operative ---
Post-Operative Progess Note Surgeon (s)/Machinist/Machine Builder (s) Surgeon CHETAN TINOCO DO Machinist/Machine Builder: na Pre-Operative Diagnosis screening colonoscopy Post-Operative Diagnosis colon polyps Procedure & Operative Findings Date of Procedure 11/15/18 Procedure Performed/Findings colonoscopy c hot bx polypectomy x 4 Anesthesia Type per mda Estimated Blood Loss Estimated blood loss (mL): none Specimens/Packing Specimens Removed colon polyps CHETAN TINOCO DO Nov 15, 2018 09:29
--- NOTE | 2018-11-15 09:30 | Discharge Inst-Simple/Standard ---
Discharge Inst-Standard Patient Instructions/Follow Up Plan of Care/Instructions/FU: 2 weeks Chuck Hold plavix/aspirin 4 days then resume. Activity as Tolerated: Yes Discharge Diet: Regular Diet CHETAN TINOCO DO Nov 15, 2018 09:30
[2018-11-15 09:55] VITALS: BP 141/62
[2018-11-15 10:25] VITALS: BP 147/79
[2018-11-15 10:37] VITALS: BP 147/79
--- NOTE | 2018-11-15 10:48 | Anesthesia-General Post-Op ---
MAC Patient Condition Mental Status/LOC: Same as Preop Cardiovascular: Satisfactory Nausea/Vomiting: Absent Respiratory: Satisfactory Pain: Controlled Complications: Absent Post Op Complications Complications None Follow Up Care/Instructions Patient Instructions None needed. Anesthesiology Discharge Order Discharge Order Patient is doing well, no complaints, stable vital signs, no apparent adverse anesthesia problems. No complications reported per nursing. SIN TINAJERO CRNA Nov 15, 2018 10:48
--- NOTE | 2018-11-15 14:59 | OPERATIVE REPORT ---
DATE OF SERVICE: 11/15/2018 PREOPERATIVE DIAGNOSIS: Screening colonoscopy. POSTOPERATIVE DIAGNOSIS: Colon polyps. PROCEDURE: Colonoscopy with hot biopsy polypectomy x 4. SURGEON: Chetan Woods DO. ANESTHESIA: Per MDA. ESTIMATED BLOOD LOSS: None. COMPLICATIONS: None. INDICATIONS: The patient is a 68-year-old male needing screening colonoscopy. He understands risks and benefits of the procedure and wished to proceed with procedure. Consent was signed in the chart. PROCEDURE: The patient was taken to the endoscopy suite and placed in left lateral recumbent position. Timeout was performed. Scope was inserted into the rectum and advanced all the way to the cecum. A digital rectal exam was performed. There were no palpable polyps, masses or ulcerations. Scope was inserted into the rectum and advanced all the way to the cecum with minimal difficulty. Prep was adequate. Scope was then slowly retracted back. No polyps, masses or ulceration of the cecum. In the ascending colon, a small polyp was present, which hot biopsy polypectomy was performed. Scope was continued to be slowly retracted back. There were no polyps, masses or ulceration within the remainder of the ascending and transverse colon. Within the descending colon, there were 2 small polyps closed together, which hot biopsy polypectomies were performed. Scope was continued to be slowly retracted back to the sigmoid colon with no polyps, masses or ulcerations. The scope was continuously retracted back into the rectum where a small polyp was present, which hot biopsy polypectomy was performed. Scope was also retroflexed noting some minimal hemorrhoid disease. Scope was returned to its normal position and slowly withdrawn until completely removed, noting no other pathology. The patient tolerated the procedure well without any complication and was taken to the recovery room in stable condition. RECOMMENDATIONS: The patient will need repeat colonoscopy in 5 years. If he has any problems prior to that, he should be reevaluated at that time. The patient will follow up in 2 weeks to discuss pathology results and see how he is doing. Job ID: [id number] DocumentID: [id number] Dictated Date: 11/15/2018 09:33:32 Sap Data Analyst Date: 11/15/2018 14:58:52 Dictated By: CHETAN WOODS DO
== END 2018-11-15 10:35 | disposition home or self-care (01) ==
LOC: ENDO 07:57
PROVIDERS: ATTEND Surgery
DX: Z12.11 Encounter for screening for malignant neoplasm of colon (principal); D12.2 Benign neoplasm of ascending colon; D12.4 Benign neoplasm of descending colon; D12.8 Benign neoplasm of rectum; I25.10 Atherosclerotic heart disease of native coronary artery without angina pectoris; I10 Essential (primary) hypertension; G47.33 Obstructive sleep apnea (adult) (pediatric); E78.5 Hyperlipidemia, unspecified; E03.9 Hypothyroidism, unspecified; K21.9 Gastro-esophageal reflux disease without esophagitis; Z79.899 Other long term (current) drug therapy

== ENCOUNTER → 2018-11-22 | Outpatient (CLI) | payer BC ==
[~2018-11-22] MED LIST changes: +ASPI-999 PO; +CLOP75TA69 PO
--- NOTE | 2018-11-22 13:37 | Diagnostic Imaging Report ---
EXAMINATION: Supine abdomen at 10:57 a.m. INDICATION: Left nephrolithiasis. FINDINGS: The prior exam of 10/25/2018 failed to show any sign of a pathologic calcification overlying the kidneys or the ureters. On this study, there is still no evidence for a calcification overlying the renal contours or along the expected paths of the ureters. The kidneys are partially obscured, however, due to overlying bowel gas and fecal material. There is no mass or organomegaly identified. The osseous structures are intact. IMPRESSION: When compared to the prior study, there has been no significant change. There is still no evidence for a calcification overlying the kidneys or the ureters. Dictated by: Dictated on workstation # [id number]
== END ==
LOC: RAD 10:18
PROVIDERS: ATTEND Urology
DX: N20.2 Calculus of kidney with calculus of ureter (principal)
CPT/HCPCS: 74018

== ENCOUNTER → 2018-11-24 | Outpatient (CLI) | payer BC ==
--- NOTE | 2018-11-24 15:32 | Diagnostic Imaging Report ---
PROCEDURE: CT abdomen and pelvis without contrast. TECHNIQUE: Multiple contiguous axial images were obtained through the abdomen and pelvis without the use of intravenous contrast. INDICATION: Left kidney stones. COMPARISON: Comparison is made with prior CT from 10/06/2018. FINDINGS: The lung bases are clear. The liver and gallbladder are unremarkable. No biliary ductal dilatation is seen. The pancreas and spleen are unremarkable. No adrenal mass is identified. The kidneys contain renal sinus cysts. Previously noted small calculus near the UPJ on the left is no longer visualized. No ureteral or bladder calculi are detected. The aorta is calcified but nonaneurysmal. Bowel loops are normal in caliber. There is moderate stool identified in the right colon. There is no ascites. No inflammatory process is seen. Bladder and prostate are unremarkable. IMPRESSION: The previously noted tiny calculus at the left UPJ on CT from 10/06/2018 is no longer present. No additional calculi or evidence of hydronephrosis is seen. Dictated by: Dictated on workstation # [id number]
== END ==
LOC: RAD 15:01
PROVIDERS: ATTEND Urology
DX: N20.0 Calculus of kidney (principal)
CPT/HCPCS: 74176

== ENCOUNTER → 2019-01-05 | Outpatient (CLI) | payer BC ==
[~2019-01-05] MED LIST changes: -AMLO5TAB7 PO; +AMLO5TAB9 PO; +LOSA25TA41 PO; -LOSA25TA6 PO
--- NOTE | 2019-01-05 12:11 | Diagnostic Imaging Report ---
PROCEDURE: MRI lumbar spine. TECHNIQUE: Multiplanar, multisequence MRI of the lumbar spine was performed without contrast. INDICATION: Back pain, bilateral side pain. No known injury. COMPARISON: The exam compared with MRI lumbar dated 05/30/2013 and correlated with more recent abdominopelvic CT that included sagittal and coronal reconstructions dated 11/24/2018. FINDINGS: Lumbar statures are stable and normal. There are a few areas of stable chronic endplate invaginations with this compatible with chronic nonedematous Schmorl's nodes. No acute marrow abnormality. No marrow edema. No acute or chronic fracture. The conus appears normal. The nerves of the cauda equina reveal a normal pattern of dispersal. There is partial visualization of right renal parapelvic cysts. Lumbar spinal canal is widely patent at each vertebral body and disc space level. Desiccated bulging disc material and endplate osteophytes at the L3-L4 and L4-L5 levels result in a mild degree of left greater than right neuroforaminal stenosis. At the L5-S1 level, there is a borderline mild bi-foraminal narrowing. Lateral recesses are patent. IMPRESSION: Chronic mild spondylosis with mild degrees of multilevel foraminal stenosis. No karen compression of the exiting or descending nerve roots and no substantial canal stenosis. Normal alignment. Normal marrow signal. No acute bony pathology. No substantial change from prior comparison studies. Dictated by: Dictated on workstation # [id number]
== END ==
LOC: RAD 07:35
PROVIDERS: ATTEND Family Medicine
DX: M47.816 Spondylosis without myelopathy or radiculopathy, lumbar region (principal); M48.061 Spinal stenosis, lumbar region without neurogenic claudication
CPT/HCPCS: 72148

== ENCOUNTER → 2019-01-06 | Outpatient (CLI) | payer BC ==
--- NOTE | 2019-01-06 11:43 | Diagnostic Imaging Report ---
EXAMINATION: MRI thoracic spine without contrast. INDICATION: Back pain Multiple images utilizing T1 and T2-weighted sequences were obtained. There are no prior MRI examinations available for comparison. The T2 sagittal images show that the thecal sac is generous. There is desiccation and mild narrowing of the disc spaces at every level. There is no abnormal signal arising from the osseous structures to suggest bone edema or a fracture. There is no sign of a cord lesion. There is no paraspinal mass visualized. IMPRESSION: 1. 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 There is no evidence for spinal stenosis or nerve encroachment at any level however. 2. There is no sign of an acute bony abnormality or for a cord lesion. Dictated by: Dictated on workstation # [id number]
== END ==
LOC: RAD 07:32
PROVIDERS: ATTEND Family Medicine
DX: M51.34 Other intervertebral disc degeneration, thoracic region (principal)
CPT/HCPCS: 72146

== ENCOUNTER → 2019-09-20 | Outpatient (CLI) | payer BC ==
[~2019-09-20] MED LIST changes: -ROSU20TA31 PO; +ROSU20TA32 PO
--- NOTE | 2019-09-20 10:22 | Diagnostic Imaging Report ---
PROCEDURE: MRI right joint lower extremity without contrast. TECHNIQUE: Multiplanar, multisequence non contrast-enhanced MRI of the right lower extremity was accomplished. INDICATION: Fall, right knee injury six weeks ago. COMPARISON: None. FINDINGS: No acute fracture or dislocation is seen. There are subcortical cyst-like changes at the trochlea. There is a small right knee joint effusion. The articular cartilage in the patellofemoral compartment demonstrates full-thickness cartilage loss at the medial facet of the patella with multiple small full-thickness defects at the trochlea. The articular cartilage in the medial and lateral compartments demonstrates mild thinning with no large full-thickness defects. There is increased signal of the medial meniscus with a horizontal tear posteriorly. There is also increased signal of the lateral meniscus, without discrete tear seen. The anterior and posterior cruciate ligaments are intact. The medial collateral ligament is intact. The lateral collateral ligamentous complex appears intact. The extensor mechanism is intact. The medial and lateral retinacula are intact. The soft tissues about the knee are otherwise unremarkable. There is a long 2.7 x 0.4 cm cystic lesion posterior to the knee, which may represent a parameniscal or ganglion cyst. There is a heterogeneous lesion in the proximal posterior tibia, may represent an intraosseous ganglion (image 16, series 4). IMPRESSION: 1. Horizontal tear of the posterior horn of the medial meniscus. 2. Tricompartmental degenerative changes and cartilage loss in the right knee, most pronounced in the patellofemoral and medial compartments. 3. No acute osseous abnormality is seen in the right knee. Dictated by: Dictated on workstation # [id number]
== END ==
LOC: RAD 08:04
PROVIDERS: ATTEND Family Medicine
DX: S83.241A Other tear of medial meniscus, current injury, right knee, initial encounter (principal); M17.11 Unilateral primary osteoarthritis, right knee; W19.XXXA Unspecified fall, initial encounter
CPT/HCPCS: 73721

== ENCOUNTER → 2019-10-17 | Outpatient (CLI) | payer BC ==
[~2019-10-17] VITALS: Ht 175 cm; Wt 85.0 kg
[~2019-10-17] MED LIST changes: +CATHETER FLUSH 10 ML SYR IV PRN; +REGADENOSON 0.4 MG/5 ML SYR (LEXISCAN) IV ONE
--- NOTE | 2019-10-17 15:53 | STRESS TEST ---
DATE OF SERVICE: 10/17/2019 RESTING AND POST REGADENOSON TECHNETIUM-99M TETROFOSMIN SPECT CT IMAGING ORDERING PHYSICIAN: YURIY Raphael PRIMARY PHYSICIAN: Raj William MD. CLINICAL DIAGNOSES: Coronary artery disease, hypertension, hyperlipidemia. Baseline images were carried out after injection of 10.51 mCi of technetium-99m Tetrofosmin. This was followed by 0.4 mg regadenoson and 32 mCi of technetium-99m Tetrofosmin for stress imaging. The electrocardiogram showed sinus rhythm throughout the study. The electrocardiogram did not change significantly with regadenoson infusion. The patient tolerated the procedure well. Review of images at rest and following stress does not indicate any distinct perfusion defects consistent with significant myocardial ischemia or infarction. Gated images show normal global left ventricular systolic function with normal regional wall motion. Left ventricular ejection fraction is calculated to be 61%. Left ventricular end diastolic volume is 68 mL. TID is absent (1.09). CONCLUSIONS: 1. No evidence of any significant myocardial ischemia or infarction on this study. 2. Normal regional wall motion. 3. Normal global left ventricular systolic function with a calculated ejection fraction of 61%. Job ID: [id number] DocumentID: [id number] Dictated Date: 10/17/2019 15:06:22 Turbo Generator Oiler Date: 10/17/2019 15:52:35 Dictated By: OCTAVIO BENNETT MD, MA, FACP, FACC,
== END ==
LOC: CARD 06:34
PROVIDERS: ATTEND Nurse Practitioner Family
DX: I25.10 Atherosclerotic heart disease of native coronary artery without angina pectoris (principal); I10 Essential (primary) hypertension; E78.5 Hyperlipidemia, unspecified
CPT/HCPCS: 78452; 93017

== ENCOUNTER → 2020-08-08 | Outpatient (CLI) | payer BC ==
[~2020-08-08] MED LIST changes: +ASPI-1238 PO; -ASPI-983 PO; -CATHETER FLUSH 10 ML SYR IV PRN; -METO-395 PO; -MORP-34 PO; +MORP-69 PO; +MTP100TCR PO; -REGADENOSON 0.4 MG/5 ML SYR (LEXISCAN) IV ONE; -TAMS0.4C98 PO; +TMSL.4C PO
== END ==
LOC: CARD 15:00
PROVIDERS: ATTEND Internal Medicine Cardiovascular Disease
DX: I10 Essential (primary) hypertension (principal); I65.29 Occlusion and stenosis of unspecified carotid artery; E78.2 Mixed hyperlipidemia; R00.2 Palpitations

== ENCOUNTER 2021-08-06 09:58 | Observation (INO) | payer BC ==
[2021-08-06] VITALS (13 sets, daily range): BP systolic 94–139; BP diastolic 61–87
[~2021-08-06] VITALS: Ht 175 cm; Wt 81.0 kg
[~2021-08-06 09:58] MED LIST changes: +AMLO-250 PO; -AMLO5TAB9 PO; -SULF1TAB35 PO
[2021-08-06 10:40] LABS: BASOPHILS # (AUTO) 0.1 10^3/uL (0.0-0.1); BASOPHILS % (AUTO) 1 % (0-10); EOSINOPHILS # (AUTO) 0.5 10^3/uL (0.0-0.3); EOSINOPHILS % (AUTO) 8 % (0-10); HEMATOCRIT 43 % (40-54); LYMPHOCYTES % (AUTO) 30 % (12-44); MEAN CORPUSCULAR HEMOGLOBIN 32 pg (25-34); MEAN CORPUSCULAR HGB CONC 35 g/dL (32-36); MEAN CORPUSCULAR VOLUME 92 fL (80-99); MEAN PLATELET VOLUME 9.2 fL (9.0-12.2); MONOCYTES # (AUTO) 0.6 10^3/uL (0.0-1.0); MONOCYTES % (AUTO) 10 % (0-12); NEUTROPHILS # (AUTO) 3.4 10^3/uL (1.8-7.8); NEUTROPHILS % (AUTO) 52 % (42-75); PLATELET COUNT 227 10^3/uL (130-400); WHITE BLOOD COUNT 6.6 10^3/uL (4.3-11.0)
[2021-08-06 10:44] LABS: ALBUMIN 3.9 GM/DL (3.2-4.5); POTASSIUM 4.2 MMOL/L (3.6-5.0)
[2021-08-06 10:45] LABS: CALCIUM 9.4 MG/DL (8.5-10.1)
[2021-08-06 10:47] LABS: TOTAL PROTEIN 5.9 GM/DL (6.4-8.2)
[2021-08-06 10:49] LABS: BILIRUBIN,TOTAL 0.4 MG/DL (0.1-1.0)
[2021-08-06 10:50] LABS: CREATININE SERUM 1.02 MG/DL (0.60-1.30)
[2021-08-06 10:53] LABS: INR 0.9 (0.8-1.4); MAGNESIUM 2.1 MG/DL (1.6-2.4); PROTHROMBIN TIME PATIENT 12.6 SEC (12.2-14.7)
--- NOTE | 2021-08-06 11:22 | Diagnostic Imaging Report ---
INDICATION: Cough and shortness of breath. EXAMINATION: Portable chest at 11:06 AM. FINDINGS: The heart size and pulmonary vascularity are normal. The lungs are clear. There are no effusions or pneumothoraces. IMPRESSION: Negative chest. Dictated by: Dictated on workstation # [id number]
--- NOTE | 2021-08-06 12:54 | ED Cardiac General ---
History of Present Illness General Chief Complaint: Cardiac/General Problems Stated Complaint: HIGH BP,COUGH,OLIVAS,SOB Nursing Triage Note: PT AMB TO ROOM 10 PT CO OF HTN, SOB, COUGH. PT DENIES FEVERS STATES WAS SEEN BY PROVIDER EARLIER THIS WEEK FOR SAME CO. (KATIE QURESHI) History of Present Illness Date Seen by Provider: Aug 06, 2021 Time Seen by Provider: 12:00 Initial Comments 71-year-old male presents for shortness of breath, hypertension and intermittent cough that have been present for approximately 2 weeks. He was evaluated by Dr. William on 08/04/2021 and started on amlodipine 5 mg once daily. He continues to notice his blood pressure increasing and shortness of breath when he climbs 5 stairs. He reports intermittent chest pressure, rating it 2- 4/10. He has Nitro SL to take for angina, but denies taking it for the last 12 months. He wears CPAP, but never feels rested. Timing/Duration: other Severity: mild Location: substernal Activities at Onset: activity Prior CP/Workup: angina, cardiac cath, echocardiography, heart attack NTG SL PHYSICAL THERAPY TECHNICIAN: No ASA po PHYSICAL THERAPY TECHNICIAN: Yes Associated Systoms: Chest Pain; No Cough, No Diaphoresis, No Fever/Chills, No Headaches, No Loss of Appetite, No Malaise, No Nausea/Vomiting; Shortness of Air; No Syncope, No Weakness (KATIE QURESHI) Allergies and Home Medications Allergies Coded Allergies: No Known Drug Allergies (Verified , 11/15/18) Patient Home Medication List Home Medication List Reviewed: Yes (KATIE QURESHI) Amlodipine Besylate (Amlodipine Besylate) 5 Mg Tablet, 5 MG PO DAILY, (Reported) Entered as Reported by: NGUYỄN FINK on 07/28/17 1129 Aspirin (Aspirin) 81 Mg Tab.chew, 81 MG PO DAILY, (Reported) Entered as Reported by: LVE WATERMAN on 11/15/18 0825 Clopidogrel Bisulfate (Plavix) 75 Mg Tablet, 75 MG PO DAILY, (Reported) Entered as Reported by: LEV WATERMAN on 11/15/18 0825 Docusate Sodium (Docusate Sodium) 100 Mg Capsule, 200 MG PO DAILY, (Reported) Entered as Reported by: NGUYỄN FINK on 07/28/17 1129 Hydrocodone/Acetaminophen (Lorcet 5-325 mg Tablet) 1 Each Tablet, 1-2 TAB PO Q6H PRN for PAIN-MODERATE Prescribed by: KATIE ACEVES on 10/25/18 1140 Hyoscyamine Sulfate (Hyoscyamine Sulfate ER) 0.375 Mg Tab.er.12h, 0.375 MG PO BID, (Reported) Entered as Reported by: RAFAEL RIDDLE on 10/24/18 1024 Levothyroxine Sodium (Levothyroxine Sodium) 75 Mcg Tablet, 75 MCG PO MoTuWeThFrSa, (Reported) Entered as Reported by: NGUYỄN FINK on 07/28/17 1129 Losartan Potassium (Losartan Potassium) 25 Mg Tablet, 25 MG PO DAILY, (Reported) Entered as Reported by: ROBERT BRADY on 10/18/18 1356 Methylphenidate HCl (Methylphenidate HCl) 20 Mg Tablet, 120 MG PO DAILY, (Reported) Entered as Reported by: ROBERT BRADY on 10/18/18 1356 Modafinil (Modafinil) 200 Mg Tablet, 200 MG PO DAILY, (Reported) Entered as Reported by: NGUYỄN FINK on 07/28/17 1129 Morphine Sulfate (Morphine Sulfate ER) 30 Mg Tablet.er, 30 MG PO DAILY, (Reported) Entered as Reported by: NGUYỄN FINK on 07/28/17 1137 Rosuvastatin Calcium (Rosuvastatin Calcium) 20 Mg Tablet, 20 MG PO HS, (Reported) Entered as Reported by: NGUYỄN FINK on 07/28/17 1129 Review of Systems Review of Systems Constitutional: no symptoms reported, see HPI Respiratory: See HPI, Cough, Shortness of Air Cardiovascular: See HPI; Denies Chest Pain Gastrointestinal: No Symptoms Reported, See HPI; Denies Constipated, Denies Diarrhea, Denies Nausea, Denies Vomiting Psychiatric/Neurological: See HPI, Headache (KATIE QURESHI) All Other Systems Reviewed Negative Unless Noted: Yes (KATIE QURESHI) Past Ewbbzqx-Rfuiax-Juisfe Hx Patient Social History Tobacco Use?: No Substance use?: No Alcohol Use?: No Pt feels they are or have been: No (KATIE QURESHI) Immunizations Up To Date Second COVID19 Vaccination Fredy: PT STATES HAS BOTH COVID VACCINES (KATIE QURESHI) Seasonal Allergies Seasonal Allergies: No (KATIE QURESHI) Past Medical History Surgeries: No (ANKLE FX, HIATAL HERNIA REPAIR, NECK SURGERY, ESWL) Cardiac, Coronary Stent, Orthopedic, Thyroidectomy Respiratory: Yes (C-FIBER COUGH, HYPERSENSITIVE COUGH) Sleep Apnea Currently Using CPAP: Yes Currently Using BIPAP: No Cardiac: Yes (CARDIAC CATHS--STENTS X 2) Coronary Artery Disease, High Cholesterol, Hypertension Neurological: Yes Headaches /Migraines Reproductive Disorders: No Sexually Transmitted Disease: No HIV/AIDS: No Genitourinary: Yes Kidney Stones Gastrointestinal: Yes (Hyperacidity) Gastroesophageal Reflux, Chronic Constipation, Hepatitis, Hiatal Hernia Musculoskeletal: Yes ( chronic ankle pain; ) Endocrine: Yes ("3 EXTRA THYROIDS REMOVED") Hyperthyroidism HEENT: No Loss of Vision: Denies Hearing Impairment: Denies Cancer: No Psychosocial: Yes (TAKES 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 ) Integumentary: Yes (HX MRSA WOUNDS) Blood Disorders: No Adverse Reaction/Blood Tranf: No (KATIE QURESHI) Family Medical History Reviewed Nursing Family Hx (KATIE QURESHI) Cardiovascular disease G8 BROTHER Completed stroke G8 BROTHER Diabetes mellitus G8 BROTHER Hypercholesterolemia G8 BROTHER Myocardial infarction G8 BROTHER Neoplasm 19 MOTHER (THYROID CANCER) No Pertinent Family Hx (KATIE QURESHI) Physical Exam Vital Signs Vital Signs - First Documented 08/06/21 10:05 Temp 36.4 Pulse 92 Resp 23 B/P (MAP) 173/99 (123) Pulse Ox 96 (BECKY BORDEN MD) Vital Signs Capillary Refill : Less Than 3 Seconds (KATIE QURESHI) Height, Weight, BMI Height: 5'9.50" Weight: 178lbs. 0.0oz. 80.631744ip; 26.00 BMI Method:Stated General Appearance: No Apparent Distress, WD/WN HEENT: PERRL/EOMI, TMs Normal, Normal ENT Inspection, Pharynx Normal Neck: Full Range of Motion, Normal Inspection, Non Tender, Supple Respiratory: Chest Non Tender, Lungs Clear, Normal Breath Sounds Cardiovascular: Regular Rate, Rhythm, No Edema, No Murmur, Normal Peripheral Pulses Gastrointestinal: Normal Bowel Sounds, Non Tender, Soft Neurologic/Psychiatric: Alert, Oriented x3, No Motor/Sensory Deficits, Normal Mood/Affect Skin: Normal Color, Warm/Dry (TITUS,KATIE CONSOLE ATTENDANT) Progress/Results/Core Measures Results/Orders Lab Results Laboratory Tests Test 08/06/21 10:14 08/06/21 10:20 08/06/21 13:40 Range/Units Influenza Type A (RT-PCR) Not Detected Not Detecte Influenza Type B (RT-PCR) Not Detected Not Detecte SARS-CoV-2 RNA (RT-PCR) Not Detected Not Detecte White Blood Count 6.6 4.3-11.0 10^3/uL Red Blood Count 4.72 4.30-5.52 10^6/uL Hemoglobin 15.0 13.3-17.7 g/dL Hematocrit 43 40-54 % Mean Corpuscular Volume 92 80-99 fL Mean Corpuscular Hemoglobin 32 25-34 pg Mean Corpuscular Hemoglobin Concent 35 32-36 g/dL Red Cell Distribution Width 11.9 10.0-14.5 % Platelet Count 227 130-400 10^3/uL Mean Platelet Volume 9.2 9.0-12.2 fL Immature Granulocyte % (Auto) 0 % Neutrophils (%) (Auto) 52 42-75 % Lymphocytes (%) (Auto) 30 12-44 % Monocytes (%) (Auto) 10 0-12 % Eosinophils (%) (Auto) 8 0-10 % Basophils (%) (Auto) 1 0-10 % Neutrophils # (Auto) 3.4 1.8-7.8 10^3/uL Lymphocytes # (Auto) 2.0 1.0-4.0 10^3/uL Monocytes # (Auto) 0.6 0.0-1.0 10^3/uL Eosinophils # (Auto) 0.5 H 0.0-0.3 10^3/uL Basophils # (Auto) 0.1 0.0-0.1 10^3/uL Immature Granulocyte # (Auto) 0.0 0.0-0.1 10^3/uL Prothrombin Time 12.6 12.2-14.7 SEC INR Comment 0.9 0.8-1.4 Activated Partial Thromboplast Time 25 24-35 SEC Sodium Level 140 135-145 MMOL/L Potassium Level 4.2 3.6-5.0 MMOL/L Chloride Level 108 H 98-107 MMOL/L Carbon Dioxide Level 23 21-32 MMOL/L Anion Gap 9 5-14 MMOL/L Blood Urea Nitrogen 24 H 7-18 MG/DL Creatinine 1.02 0.60-1.30 MG/DL Estimat Glomerular Filtration Rate 72 BUN/Creatinine Ratio 24 Glucose Level 115 H 70-105 MG/DL Calcium Level 9.4 8.5-10.1 MG/DL Corrected Calcium 9.5 8.5-10.1 MG/DL Magnesium Level 2.1 1.6-2.4 MG/DL Total Bilirubin 0.4 0.1-1.0 MG/DL Aspartate Amino Transf (AST/SGOT) 22 5-34 U/L Alanine Aminotransferase (ALT/SGPT) 33 0-55 U/L Alkaline Phosphatase 75 40-136 U/L Myoglobin 40.8 10.0-92.0 NG/ML Troponin I < 0.028 < 0.028 <0.028 NG/ML C-Reactive Protein High Sensitivity 0.03 0.00-0.50 MG/DL B-Type Natriuretic Peptide < 10.0 <100.0 PG/ML Total Protein 5.9 L 6.4-8.2 GM/DL Albumin 3.9 3.2-4.5 GM/DL (BECKY BORDEN MD) My Orders Orders - BECKY BORDEN MD Hs C Reactive Protein (08/06/21 10:33) Cbc With Automated Diff (08/06/21 10:33) Magnesium (08/06/21 10:33) Chest 1 View, Ap/Pa Only (08/06/21 10:33) Ekg Tracing (08/06/21 10:33) Comprehensive Metabolic Panel (08/06/21 10:33) Myoglobin Serum (08/06/21 10:33) Protime With Inr (08/06/21 10:33) Partial Thromboplastin Time (08/06/21 10:33) O2 (08/06/21 10:33) Monitor-Rhythm Ecg Trace Only (08/06/21 10:33) Ed Iv/Invasive Line Start (08/06/21 10:33) BNP (08/06/21 10:33) Troponin I (08/06/21 10:33) Covid 19 Inhouse Test (08/06/21 10:33) (BECKY BORDEN MD) Vital Signs/I&O 08/06/21 08/06/21 08/06/21 10:05 12:30 13:41 Temp 36.4 Pulse 92 Resp 23 B/P (MAP) 173/99 (123) 139/87 (104) 139/87 (104) 119/82 (94) Pulse Ox 96 (BECKY BORDEN MD) Blood Pressure Mean: 123 Progress Progress Note : Time: 12:00 Progress Note Patient seen and evaluated, will obtain labs, EKG and chest x-ray. He took Aspirin this morning. Reports he has been awake since 0330 today, he got up with his dog. He denies any new stress or additional situations leading to the chest pain. He is on phase alf. 1300 patient continues to deny change in his pain, while resting in bed he is rating it at a 2. B/P 126/80 1400 repeat troponin negative, spoke to Dr. Bright about the patient, he recommended follow-up with him tomorrow. No additional changes in his medications or treatment at this time. 1430 Dr. Bright in the emergency department to evaluate patient, has decided to take him to the [facility] instead of discharge to home. (KATIE QURESHI) Initial ECG Impression Date: Aug 06, 2021 Initial ECG Impression Time: 10:26 Initial ECG Rate: 73 Initial ECG Rhythm: Normal Sinus Initial ECG Intervals: Normal Initial ECG Intervals IL 148, QRSD 78 QT 363, QTc 400. [place] P 49, QRS 9, T 73. Initial ECG Impression: Normal Initial ECG Comparisson: Unchanged (KATIE QURESHI) Diagnostic Imaging Diagonstic Imaging: Xray Plain Films/CT/US/NM/MRI: chest Comments NAME: [facility] REC#: [id number] PT STATUS: REG ER : 1950 PHYSICIAN: BECKY BORDEN MD ADMIT DATE: 08/06/21/ER Draft Date of Exam:08/06/21 CHEST 1 VIEW, AP/PA ONLY INDICATION: Cough and shortness of breath. EXAMINATION: Portable chest at 11:06 AM. FINDINGS: The heart size and pulmonary vascularity are normal. The lungs are clear. There are no effusions or pneumothoraces. IMPRESSION: Negative chest. Dictated on workstation # [id number] Dict: 08/06/21 1121 Trans: 08/06/21 1122 [id number] Interpreted by: MARINE DODSON MD Electronically signed by: Reviewed: Reviewed by Me (KATIE QURESHI) Departure Impression Primary Impression: Angina pectoris Additional Impressions: Chest pain on exertion Dyspnea Qualified Codes: R06.00 - Dyspnea, unspecified CAD (coronary artery disease) Qualified Codes: I25.118 - Atherosclerotic heart disease of [place] coronary artery with other forms of angina pectoris Hypertensive heart disease Qualified Codes: I11.9 - Hypertensive heart disease without heart failure Disposition: HOME, SELF-CARE Condition: Improved Admissions Decision to Admit Reason: Admit from ER (General) Decision to Admit/Date: Aug 06, 2021 Time/Decision to Admit Time: 14:30 (KATIE QURESHI) Departure-Patient Inst. Referrals: FAHAD BRIGHT MD, RICK D MD (PCP/Family) Primary Care Physician Patient Instructions: Chest Pain (DC), High Blood Pressure (DC) Add. Discharge Instructions: Continue home medications as prescribed. Follow-up with Dr. Bright tomorrow at 9 AM. Use the nitroglycerin for chest pain. Return to the emergency department for chest pain or worsening of your shortness of breath. All discharge instructions reviewed with patient and/or family. Voiced understanding. ATTENDING PHYSICIAN NOTE: I was physically present as attending physician in the emergency department during the care of this patient, but I was not directly involved in the decision making or delivery of care for this patient. (BECKY BORDEN MD) Copy Copies To 1: FAHAD BRIGHT MD, AMY ARNP Aug 06, 2021 12:54 BECKY BORDEN MD Aug 07, 2021 12:05
[2021-08-06] MEDS ORDERED: HEParin 1000 UNIT/ML (10ML VIAL) FOR BOLUS ONE (14:58)
[2021-08-06] MEDS ORDERED: LIDOCAINE 1% INJ 20 ML 20 ML VIAL ONE (14:58)
[2021-08-06] MEDS ORDERED: MIDAZOLAM 5 MG/5 ML (VERSED) VIAL ONE (14:58)
[2021-08-06] MEDS ORDERED: NS IV 1000 ML 3,000 ML ONE (14:59)
[2021-08-06] MEDS ORDERED: fentaNYL INJ 100 MCG/2 ML AMP ONE (15:00)
[2021-08-06] MEDS ORDERED: NITRO DRIP 25000 MCG/D5W 250 ML IV ONE (15:00)
[2021-08-06] MEDS ORDERED: VERAPAMIL 5 MG/2 ML (CALAN) VIAL IV ONE (15:00)
--- NOTE | 2021-08-06 15:02 | Conscious Sedation/ASA ---
Conscious Sedation Pre-Proced Time 15:02 ASA Score 3 For ASA 3 and 4: Consider anesthesia and medical clearance. Also, for patients with a history of failed moderate sedation consider anesthesia. Airway Lungs Heart ASA score ASA 1: a normal healthy patient ASA 2: a patient with a mild systemic disease (mid diabetes, controlled hypertension, obesity x ASA 3: a patient with a severe systemic disease that limits activity (angina, COPD, prior Myocardial infarction) ASA 4: a patient with an incapacitating disease that is a constant threat to life (CHF, renal failure) ASA 5: a moribund patient not expected to survive 24 hrs. (ruptured aneurysm) ASA 6: a declared brain- patient whose organs are being harvested. For emergent operations, add the letter E after the classification Mallampati Classification Grade 3 Sedation Plan Analgesia, Amnesia, Plan communicated to team members, Discussed options with patient/fam, Discussed risks with patient/fam The patient is an appropriate candidate to undergo the planned procedure, sedation, and anesthesia. The patient immediately re-assessed prior to indication. FAHAD WINSLOW MD Aug 06, 2021 15:02
--- NOTE | 2021-08-06 15:02 | Cardiology History & Physical ---
HPI-Cardiology Cardiology Consultation Date of Consultation 08/06/21 Date of Admission Time Seen by Provider: 14:57 Indication: Chest pain HPI 71 years old gentleman with history of hypertension, coronary artery disease, has been having increasing chest pressure in the retrosternal area dull in nature, occasionally waking up from sleep with pain, reporting that the pressure is worse usually with exertion. He has limited exercise ability. No syncope or near syncopal episodes, he was seen by Dr. William earlier this week. Then he was sent to the emergency room. PMH-Cardiology Seasonal Allergies Seasonal Allergies: No Surgeries No (ANKLE FX, HIATAL HERNIA REPAIR, NECK SURGERY, ESWL) Thyroidectomy, Coronary Stent, Orthopedic Respiratory Yes (C-FIBER COUGH, HYPERSENSITIVE COUGH) Cardiovascular Yes (CARDIAC CATHS--STENTS X 2) Hypertension, Coronary Artery Disease Neurological Yes Headaches /Migraines Reproductive System Hx Reproductive Disorders: No Sexually Transmitted Disease: No HIV/AIDS: No Genitourinary Yes Kidney Stones Gastrointestinal Yes (Hyperacidity) Gastroesophageal Reflux, Chronic Constipation, Hepatitis, Hiatal Hernia Musculoskeletal Yes ( chronic ankle pain; ) Endocrine Yes ("3 EXTRA THYROIDS REMOVED") Hyperthyroidism HEENT No Loss of Vision: Denies Hearing Impairment: Denies Cancer No Psychosocial Yes (TAKES 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 ) Integumentary Yes (HX MRSA WOUNDS) Blood Transfusions No Adverse Rxn to Transfusion: No Social History Patient Social History Marrital Status: Employed/Student: employed Smoking: Never smoker Have you traveled recently?: No Alcohol Use?: No Family Hx Significant Family History: No Pertinent Family Hx Family History: Cardiovascular disease G8 BROTHER Completed stroke G8 BROTHER Diabetes mellitus G8 BROTHER Hypercholesterolemia G8 BROTHER Myocardial infarction G8 BROTHER Neoplasm 19 MOTHER (THYROID CANCER) ROS-Cardiology Review of Systems General: No Chills, No Night Sweats, No Fatigue, No Malaise, No Appetite HEENT: No Head Aches, No Visual Changes, No Eye Pain, No Ear Pain, No Dysphasia, No Sinus Congestion, No Post Nasal Drip, No Sore Throat Pulmonary: Dyspnea; No Cough, No Pleuritic Chest Pain Cardiovascular: Chest Pain; No: Palpitations, Orthopnea, Paroxysmal Noc. Dy spnea, Edema, Lt Headedness Gastrointestinal: No: Nausea, Vomiting, Abdominal Pain, Diarrhea, Constipation, Melena, Hematochezia Genitourinary: No Dysuria, No Frequency, No Incontinence, No Hematuria, No Retention Musculoskeletal: No: neck pain, shoulder pain, arm pain, back pain, hand pain, leg pain, foot pain Neurological: No: Weakness, Numbness, Incoordination, Change in speech, Confusion, Seizures Home Medications & Allergies Allergies: Coded Allergies: No Known Drug Allergies (Verified , 11/15/18) Home Medication List Reviewed: Yes Exam-Cardiology Vital Signs Vital Signs Date Time Temp Pulse Resp B/P (MAP) Pulse Ox O2 Delivery O2 Flow Rate FiO2 08/06/21 14:41 74 18 114/80 96 08/06/21 10:05 36.4 Exam General Appearance: Alert, Oriented X3, Cooperative, No Acute Distress HEENT: Atraumatic, PERRLA Respiratory: Clear to Auscultation, Normal Air Movement Cardiovascular: Regular Rate, Normal S1, Normal S2, No Murmurs Abdominal: Normal Bowel Sounds, Soft, No Tenderness, No Hepatosplenomegaly, No Masses Extremities: No Clubbing, No Cyanosis, No Edema, Normal Pulses, No Tenderness/Swelling Skin: No Rashes, No Breakdown, No Significant Lesion Neuro: Normal Gait, Normal Speech, Strength at 5/5 X4 Ext, Normal Tone, Sensation Intact Psych/Mental Status: Mental Status NL, Mood NL Results Labs Labs Laboratory Tests 08/06/21 10:14: Influenza Type A (RT-PCR) Not Detected, Influenza Type B (RT-PCR) Not Detected, SARS-CoV-2 RNA (RT-PCR) Not Detected 08/06/21 10:20: White Blood Count 6.6, Red Blood Count 4.72, Hemoglobin 15.0, Hematocrit 43, Mean Corpuscular Volume 92, Mean Corpuscular Hemoglobin 32, Mean Corpuscular Hemoglobin Concent 35, Red Cell Distribution Width 11.9, Platelet Count 227, Mean Platelet Volume 9.2, Immature Granulocyte % (Auto) 0, Neutrophils (%) (Auto) 52, Lymphocytes (%) (Auto) 30, Monocytes (%) (Auto) 10, Eosinophils (%) (Auto) 8, Basophils (%) (Auto) 1, Neutrophils # (Auto) 3.4, Lymphocytes # (Auto) 2.0, Monocytes # (Auto) 0.6, Eosinophils # (Auto) 0.5H, Basophils # (Auto) 0.1, Immature Granulocyte # (Auto) 0.0, Prothrombin Time 12.6, INR Comment 0.9, Activated Partial Thromboplast Time 25, Sodium Level 140, Potassium Level 4.2, Chloride Level 108H, Carbon Dioxide Level 23, Anion Gap 9, Blood Urea Nitrogen 24H, Creatinine 1.02, Estimat Glomerular Filtration Rate 72, BUN/Creatinine Ratio 24, Glucose Level 115H, Calcium Level 9.4, Corrected Calcium 9.5, Magnesium Level 2.1, Total Bilirubin 0.4, Aspartate Amino Transf (AST/SGOT) 22, Alanine Aminotransferase (ALT/SGPT) 33, Alkaline Phosphatase 75, Myoglobin 40.8, Troponin I < 0.028, C-Reactive Protein High Sensitivity 0.03, B-Type Natriuretic Peptide < 10.0, Total Protein 5.9L, Albumin 3.9 08/06/21 13:40: Troponin I < 0.028 A/P-Cardiology Admission Diagnosis Chest pain Coronary artery disease Hypertension Hyperlipidemia Admission Status: Observation Assessment/Plan Chest pain, resembling angina, worsening recently, has been more symptomatic over the past 2 weeks. No acute EKG changes. I am planning to proceed with cardiac catheterization possible PTCA. Coronary artery disease with a history of bare-metal stenting of the right coronary with Mini-Vision 2.25 x 8-mm and 2.25 x 12-mm overlapping stents in July 2010. These were post-dilated with Quantum 2.5 x 15-mm balloon. Last cardiac catheterization was on 01/17/2013. Stents were patent but the procedure was complicated by spasm in the right coronary and development of thrombus in the right coronary for which he underwent aspiration thrombectomy and balloon angioplasty with restorationism of normal flow and complete resolution of thrombus, last stress test was done in October 2019 showing no evidence of ischemia or infarction, ejection fraction 61 percent. Reports recent stress test done at [facility] showing no ischemia or infarct Hypertension, labile blood pressure, Bystolic discontinued at last visit d/t bradycardia. Maintained on losartan, started on amlodipine 2 days ago. Restart home medication monitor Palpitations of undetermined etiology - 24 hour Holter study of October 2016 showed NSR with an average HR of 65 bpm. Occ PVC. Not VT or SVT. Had w/u done at [facility] in November 2020 including Holter showing no arrhythmia. Continue to monitor. Echo of 09/14/20: LVEF 60%, triv to mild MR & TR, no valvular stenosis, PASP 35 mmHg, had recent echo done at [facility] 2020. 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 This is currently under control with chronic treatment with MS Contin. Chronic mild gait imbalance, currently stable. Hypersomnia, managed by Dr Butterfield at the [facility] History of hypothyroidism following thyroidectomy several years ago. The patient is on potassium replacement therapy, which is being managed by Dr. Dove Gastroesophageal reflux for which he has undergone laparoscopic repair. Laryngo-pharyngeal reflux, which has been followed by Dr. Knight at [facility]. Hyper-function dysphonia, which has been followed by Dr. Knight at [facility] Headaches of undetermined etiology for which he is following at the Headache clinic at [facility], has seen specialist at [facility], dx with chronic neck pain and C- spine fusion contributing to OLIVAS Hyperglycemia, mild, being followed by primary care physician Hyperlipidemia, treated with statin therapy, I'll obtain copy of his lipid profile Impaired fasting glucose Minimal bilat carotid plaque on carotid u/s of 10/09/18; incidental note was made of thyroid nodules that are being followed by Dr Shelby , recent carotid duplex at [facility], I will try to obtain a copy for further review. PFTs of 09/16/16 shows mild COPD Urolithiasis, managed by Dr Rhys MICHELE in Jul 2017, managed by Dr Woods Clinical Quality Measures AMI/AHF: ASA po Prior to arrival: FAHAD Arvizu MD Aug 06, 2021 15:02
--- NOTE | 2021-08-06 15:54 | Discharge Inst-Post CATH ---
Discharge Inst-CATH/EP Problems Reviewed?: Yes Post Cardiac Cath/EP D/C Inst Follow Up/Plan Appointment with Dr. Bright's office next week <b>CARDIAC CATH/EP PROCEDURE DISCHARGE INSTRUCTIONS</b> ACTIVITY * Go Home directly and rest. * Limit activity of the leg (or wrist if it was used) for 7 days including aerobics, swimming, jogging, bicycling, etc. * Restrict stair-climbing for 7 days if possible, if not, climb up with your non-cath leg, then bring together on the same step. * Avoid lifting, pushing, pulling or excessive movement of the affected extremity for 7 days. * Customary sexual activity may be resumed after 2 days-use caution not to use a position that strains or causes pain to the affected extremity. * No driving for 24 hours. * NO SMOKING. * Avoid straining for bowel movements for 7 days. * Gentle walking on level ground is allowed. * Returning to work will depend on the type of procedure and the results. Your doctor will discuss this with you. CALL YOUR DOCTOR FOR ANY OF THE FOLLOWING: *If bleeding from the puncture site occurs- Apply gentle pressure to site with clean cloth and call your doctor or EMS. * If a knot or lump forms under the skin, increases in size, or causes pain. * If bruising appears to be worsening or moving further down your leg instead of disappearing. * Temperature above 101 F. CARE OF YOUR GROIN INCISION; * Bruising or purple discoloration of the skin near the puncture site is common. * You may shower only, no bathtub bathing for 5 days. Be careful to avoid slipping as your leg may feel stiff. * If a closure device was used on your femoral artery, please see the attached guide regarding care of the device and your leg. * Leave dressing on FOR 24 hours. CARE OF YOUR WRIST INCISION; * Bruising or purple discoloration of the skin near the puncture site is common. * You may shower. * DO NOT submerge wrist. * Leave dressing on FOR 24 hours. FAHAD BRIGHT MD Aug 06, 2021 15:54
[2021-08-06] MEDS ORDERED: PATIENT MAY USE OWN MEDS, ALL PO SCH (16:00)
[2021-08-06] MEDS ORDERED: NS IV 1000 ML 1,000 ML IV SCH (16:00)
--- NOTE | 2021-08-06 16:01 | Cardiac Cath Report ---
Cardiac Cath Report Physician (s)/Law Enforcement Instructor (s) Physician FAHAD WINSLOW MD Pre-Procedure Diagnosis Pre-Procedure Diagnosis: Chest pain, coronary artery disease Post-Procedure Note Procedure Start Date: Aug 06, 2021 Name of Procedure: Left heart catheterization Aortic arch angiogram Findings/Procedure Note PROCEDURE NOTE: 71 years old gentleman admitted with acute chest pain, seen in the emergency room, having active chest pain, had history of coronary artery disease. Has labile blood pressure. Scheduled for cardiac catheterization possible PTCA. After explaining the procedure to the patient, all pros and cons were explained, all questions were answered. The patient signed the consent and then he was placed on the cardiac catheterization laboratory. Groin was prepped SL fashion local anesthesia was used. Sheath placed in the right radial artery, I advanced the wire and went directly to the descending aorta, I had difficulty guiding the catheter and the wire to the ascending aorta then advanced through the left ventricle and left ventriculogram was done, pullback LV to aorta was done. Intubated the right coronary system and angiogram was done then I pulled up to the aortic arch and aortic arch angiogram exchanged the catheter over a long wire and used [place] left catheter with difficulty due to the angle of that catheter in the thoracic aorta I was able to intubate the left main and then angiogram was done then I exchanged again and advanced the [place] back to the ostium of the right subclavian artery and repeated aortic arch angiogram and during the angiogram I pulled it back in the subclavian artery. At the end of the procedure the sheath was removed. Vascular band was used FINDINGS: Hemodynamics LV 101/14, end-diastolic pressure 14 Aorta 106/70 mean of 43 ANATOMY: Left Main is free of obstructive disease Left Anterior Descending has mild disease nonobstructive disease Left Circumflex has mild disease nonobstructive disease Right Coronary Artery has patent stent in the midportion with mild disease nonobstructive disease LV Gram was done showing normal left ventricular size, normal systolic function, estimated ejection fraction 60% Aorta evaluation done with aortic arch angiogram showed calcification in the aortic arch no dissection or aneurysm, the origin of the right brachiocephalic artery is normal, the right subclavian artery has a separate origin distally in the aortic arch beyond the left subclavian origin. The left carotid is normal and left subclavian arteries normal CONCLUSION: 1. Patent stent in the mid right coronary artery with mild coronary artery disease nonobstructive disease 2. Normal left ventricular size and systolic function, estimated ejection fraction 60% 3. Normal aortic arch with mild calcification with hypertensive changes no dissection or aneurysm 4. 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 DISCUSSION AND RECOMMENDATION and HOSPITAL COURSE: Medical therapy is recommended no intervention is warranted, chest pain is probably noncardiac, will continue monitoring blood pressure and follow-up as an outpatient. I am planning to discharge patient home today Anesthesia Type: Conscious Sedation Estimated blood loss (mL): 15 ml Contrast Amount: 65 ml Total Radiation Dose: 420 mGy Post-Procedure Diagnosis Post-operative diagnosis: Chest pain Labile hypertension Hyperlipidemia Shortness of breath FAHAD WINSLOW MD Aug 06, 2021 16:01
== END 2021-08-06 19:47 | disposition home or self-care (01) ==
LOC: EDUNIT# 09:58 → ER 09:59 → CATH 14:55 → CSD 15:53 → CATH 15:53 → CSD 16:49
PROVIDERS: ADMIT Internal Medicine Cardiovascular Disease; ATTEND Internal Medicine Cardiovascular Disease
DX: R07.2 Precordial pain (principal); I25.119 Atherosclerotic heart disease of native coronary artery with unspecified angina pectoris; E78.5 Hyperlipidemia, unspecified; I11.9 Hypertensive heart disease without heart failure; E78.00 Pure hypercholesterolemia, unspecified; E05.90 Thyrotoxicosis, unspecified without thyrotoxic crisis or storm; G47.10 Hypersomnia, unspecified; R26.9 Unspecified abnormalities of gait and mobility; K21.9 Gastro-esophageal reflux disease without esophagitis; R51.9 Headache, unspecified; G89.29 Other chronic pain; M54.2 Cervicalgia; R73.9 Hyperglycemia, unspecified; R73.01 Impaired fasting glucose; J44.9 Chronic obstructive pulmonary disease, unspecified; N20.0 Calculus of kidney; G47.30 Sleep apnea, unspecified; Z95.5 Presence of coronary angioplasty implant and graft; Z79.899 Other long term (current) drug therapy; Z79.82 Long term (current) use of aspirin; Z79.891 Long term (current) use of opiate analgesic; Z79.890 Hormone replacement therapy
CPT/HCPCS: 36221; 36415; 71045; 80053; 83735; 83874; 83880; 84484; 85025; 85610; 85730; 86141; 87636; 93005; 93041; 93458

== ENCOUNTER → 2021-09-01 | Outpatient (CLI) | payer BC ==
[~2021-09-01] MED LIST changes: +GADOTERATE 0.5 MMOL/ML (CLARISCAN) 15 ML VIAL IV ONE
--- NOTE | 2021-09-01 12:33 | Diagnostic Imaging Report ---
PROCEDURE: MR imaging of the brain with and without contrast. TECHNIQUE: Multiplanar, multisequence MR imaging of the brain was performed with and without contrast. INDICATION: Headaches. Reported previous outside imaging demonstrated a mass. COMPARISON: CT head without and with IV contrast 08/02/2015. FINDINGS: Mild generalized cerebral and cerebellar parenchymal volume loss is age appropriate. Minimal nonspecific T2 hyperintensities in the supratentorial white matter compatible with chronic small vessel ischemic change. No abnormal intracranial enhancement or mass is identified. No restricted water diffusion. No hemosiderin deposition or evidence of intracranial hemorrhage. Normal morphology including the major midline structures, sella, posterior fossa and cerebellar pontine angle. Normal intracranial flow voids. No hydrocephalus or extra-axial fluid collections. The orbits are negative. Mild mucosal thickening in the ethmoid and frontal sinuses. Mastoids are clear. Normal bone marrow signal. IMPRESSION: 1. Age-appropriate generalized parenchymal volume loss and chronic small vessel ischemic change. 2. No acute intracranial MRI findings. No evidence of acute infarction or hemorrhage. 3. No evidence of an intracranial mass. 4. Mild mucosal thickening in the frontal and ethmoid sinuses. Dictated by: Dictated on workstation # [id number]
--- NOTE | 2021-09-01 12:33 | Diagnostic Imaging Report ---
PROCEDURE: MR imaging cervical spine without contrast. TECHNIQUE: Multiplanar, multisequence MR imaging of the cervical spine was performed without contrast. INDICATION: Headaches. COMPARISON: None. FINDINGS: Normal alignment. Vertebral body heights preserved. There is fusion of the C4 and C5 vertebral bodies which appears to be chronic. No abnormal signal in the cervical spinal cord. Visualized paravertebral soft tissues are unremarkable. C2-C3: No spinal canal or neural foraminal narrowing. C3-C4: Uncovertebral and facet arthropathy result in severe right neural foraminal narrowing. Broad-based disc bulging and ligamentous hypertrophy result in mild spinal canal narrowing. C4-C5: Uncovertebral and facet arthropathy result in moderate right and mild left neural foraminal narrowing. No spinal canal narrowing. C5-C6: Broad-based disc bulging and ligamentous hypertrophy result in mild spinal canal narrowing. Uncovertebral and facet arthropathy result in mild bilateral neural foraminal narrowing. C6-C7: Uncovertebral and facet arthropathy result in mild left neural foraminal narrowing. No spinal canal or right neural foraminal narrowing. C7-T1: Normal. T1-T2: Normal. IMPRESSION: 1. Spondylotic changes result in severe right neural foraminal narrowing at C3-C4. Additional mild and moderate neural foraminal narrowing detailed above level by level. 2. No high-grade spinal canal stenosis. 3. No abnormal signal in the cervical spinal cord. 4. 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 Dictated by: Dictated on workstation # [id number]
== END ==
LOC: RAD 09:05
DX: G31.1 Senile degeneration of brain, not elsewhere classified (principal); M47.812 Spondylosis without myelopathy or radiculopathy, cervical region; M50.222 Other cervical disc displacement at C5-C6 level; M48.02 Spinal stenosis, cervical region; M43.22 Fusion of spine, cervical region; M24.28 Disorder of ligament, vertebrae; J32.2 Chronic ethmoidal sinusitis
CPT/HCPCS: 70553; 72141

== ENCOUNTER → 2022-11-10 | Outpatient (CLI) | payer MEDICARE ==
[~2022-11-10] MED LIST changes: +CLOP-31 PO; -CLOP75TA69 PO; -HYOS0.3710 PO; +HYOS0.3738 PO
--- NOTE | 2022-11-10 10:54 | Diagnostic Imaging Report ---
CLINICAL INDICATION: Patient states he has an outside MRI brain study that showed an abnormal area in the left side brain dural area. EXAM: MRI of the brain performed without and with 14 cc of Clariscan IV contrast. Sequences include axial DWI, ADC map, coronal gradient echo, axial FLAIR, axial T1, axial T2, axial T1 post IV contrast whole brain, coronal T1 fat-sat post IV contrast whole brain, and sagittal T1 fat-sat post IV contrast whole brain. Comparison: MRI of the brain with and without contrast dated 09/01/2021. Findings: There is no evidence of acute cerebral infarct, intracranial hemorrhage, or gross mass effect. There is no abnormal IV contrast enhancement. The brain parenchymal volume appears appropriate for patient's age. There are multiple focal areas of high T2 signal white matter changes involving both cerebral hemispheres which is not significantly changed, likely representing chronic small vessel ischemic disease. There is normal ward-white matter distinction. There is no significant midline shift or herniation. [place] vascular structures show no gross abnormality as visualized. The pituitary gland, sella, and suprasellar regions are unremarkable as visualized. There is no evidence of hydrocephalus. There is a small choroid plexus cyst in the left trigone region, stable. The basal cisterns are unremarkable. The skull, extracranial soft tissue, and orbits are unremarkable. There is mild mucosal thickening involving the right maxillary sinus, frontal sinus, ethmoid sinus. Temporal bones show no significant abnormality. IMPRESSION: 1: There is no evidence of acute intracranial process. There is no abnormality in the left dural region. Comparison to the prior outside MRI of the brain would help better evaluate, if available. 2: Mild age-related brain parenchymal changes. 3: There is mild paranasal sinus disease. Dictated by: Dictated on workstation # [id number]
== END ==
LOC: RAD 08:49
PROVIDERS: ATTEND Nurse Practitioner Family
DX: J34.9 Unspecified disorder of nose and nasal sinuses (principal); R94.02 Abnormal brain scan; I10 Essential (primary) hypertension; R05.3 Chronic cough; R53.82 Chronic fatigue, unspecified; U07.1 COVID-19; Z76.0 Encounter for issue of repeat prescription
CPT/HCPCS: 70553